=== PATIENT | male | born 1960 | race Hispanic/Latino ===

== ENCOUNTER 2016-09-24 08:27 | Inpatient (IN) | payer OTHER ==
[2016-09-24] MEDS ORDERED: ARTIFICIAL TEARS OPHTH OINT OU PRN (08:38)
[2016-09-24] MEDS ORDERED: VASELINE LIP THERAPY TP PRN (08:38)
[2016-09-24] MEDS ORDERED: AMIDATE IV ONE ×2 (08:49→09:11)
[2016-09-24] MEDS ORDERED: QUELICIN ONE (08:49)
[2016-09-24] MEDS ORDERED: ATIVAN ONE (08:54)
[2016-09-24] MEDS ORDERED: INTROPIN DRIP 800 MG/D5W 250 ML IV ONE (09:00)
[2016-09-24] MEDS ORDERED: NACL 0.9% 500 ML IV SCH (09:00)
[2016-09-24] MEDS ORDERED: ADRENALIN ONE (09:00)
[2016-09-24] MEDS ORDERED: CALCIUM CHLORIDE IV ONE (09:00)
[2016-09-24 09:02] LABS: Urine Drugs of Abuse Note Disclamer
[2016-09-24] MEDS ORDERED: CARDIZEM ONE (09:03)
[2016-09-24] MEDS ORDERED: NACL 0.9% 1000 ML 1,000 ML ONE (09:04)
[2016-09-24] MEDS ORDERED: ATIVAN IV ONE (09:07)
[2016-09-24] MEDS ORDERED: NACL 0.9% 1000 ML 1,000 ML IV ONE ×2 (09:09→10:16)
[2016-09-24] MEDS ORDERED: CARDIZEM IV ONE ×4 (09:11→10:02)
[2016-09-24 09:13] LABS: Hematocrit 54.6 % (35.5-45.6); Hemoglobin 17.4 gm/dl (11.8-15.2); Mean Corpuscular HGB Conc 32 % (32-34); Mean Corpuscular Hemoglobin 30 pg (28-32); Mean Corpuscular Volume 93 fl (84-94); Platelet Count 199 K/mm3 (140-440); Red Blood Count 5.85 M/mm3 (3.65-5.03); Red Cell Distribution Width 17.3 % (13.2-15.2); White Blood Count 14.4 K/mm3 (4.5-11.0)
[2016-09-24] MEDS: MIDAZOLAM 100 MG in NACL 0.9% 80 ML IV SCH (09:15)
--- NOTE | 2016-09-24 09:15 | Progress Note ---
Subjective Date of service: 09/24/16 Interval history: called to ER to emergently intubate pt. Prior unsuccessful attempts per ER doctor.pt well ventilated with O2 ambu bag and mask with O2 sats in mid 90's successful intubation with 7.0 OETT which was then changed to 8.0 OETT over tube changer due to rip in cuff.well ventilated throughout documented with blbs and co2 change Objective - Constitutional Vitals: Vital Signs - 12hr 09/24/16 09/24/16 09/24/16 08:27 08:28 08:30 Pulse Rate 166 H 125 H 83 Respiratory 12 9 L 12 Rate Blood Pressure 190/128 O2 Sat by Pulse 90 100 Oximetry 09/24/16 09/24/16 09/24/16 08:36 08:40 08:45 Pulse Rate 139 H 167 H 173 H Respiratory 31 H 17 19 Rate Blood Pressure 196/128 217/121 191/125 O2 Sat by Pulse 88 89 99 Oximetry 09/24/16 09/24/16 08:51 08:55 Pulse Rate 177 H 164 H Respiratory 27 H 22 Rate Blood Pressure 127/94 217/121 O2 Sat by Pulse 96 99 Oximetry
[2016-09-24] MEDS ORDERED: NACL ONE (09:18)
--- NOTE | 2016-09-24 09:22 | XRay Report ---
AP CHEST: HISTORY: Endotracheal tube placement. The endotracheal tube terminates 1.7 cm superior to the adelaida. There is poor pulmonary inflation bilaterally. Grossly there is no evidence for infiltrate, large pleural effusion or pneumothorax. Mild to moderate cardiomegaly is noted. IMPRESSION: Endotracheal tube as described. Cardiomegaly. Lungs grossly clear.
[2016-09-24 09:43] LABS: Alanine Aminotransferase 56 units/L (7-56); Albumin 4.3 g/dL (3.9-5); Albumin/Globulin Ratio 1.3 %; Alkaline Phosphatase 82 units/L (35-129); BUN/Creatinine Ratio 11.81; Blood Urea Nitrogen 13 mg/dL (9-20); Calcium 9.3 mg/dL (8.4-10.2); Chloride 99.7 mmol/L (98-107); Glucose 213 mg/dL (75-100); Sodium 146 mmol/L (137-145); Total Protein 7.6 g/dL (6.3-8.2)
[2016-09-24] MEDS ORDERED: CARDIZEM/D5W 100MG/100ML 100 MG/100 ML BAG IV ONE (09:48)
[2016-09-24 09:49] LABS: Anion Gap 41 mmol/L; Carbon Dioxide 9 mmol/L (22-30)
[2016-09-24 09:51] LABS: Bacteria,Urine 4+ /HPF (Negative); Bilirubin,Urine NEG (Negative); Blood,Urine SM (Negative); Ketones,Urine NEG (Negative); Leukocyte Esterase,Urine NEG (Negative); Nitrite,Urine NEG (Negative); Urobilinogen,Urine < 2.0 mg/dL (<2.0)
--- NOTE | 2016-09-24 09:52 | Cat Scan Report ---
CT HEAD WITHOUT CONTRAST: HISTORY: Seizure. Serial contiguous axial images were obtained through the cranium. Intravenous contrast material was not administered. The ventricles are normal in size and appearance. There is no mass effect or midline shift. No areas of abnormally increased or decreased attenuation are seen. No mass lesion is seen. The mastoid air cells and visualized portions of the sinuses are normal. IMPRESSION: No acute intracranial process appreciated. If further evaluation is needed, MRI brain with and without contrast is recommended.
[2016-09-24 09:58] LABS: Protein,Urine >500 mg/dL (Negative)
[2016-09-24] MEDS: CARDIZEM/D5W 100MG/100ML 100 MG/100 ML BAG IV SCH ×2 (10:03→18:26)
[2016-09-24] MEDS ORDERED: VANCOMYCIN/NS 1 GM/250 ML 1 GM/250 ML BAG IV ONE (10:16)
[2016-09-24] MEDS ORDERED: ZOSYN/NS 4.5GM/100ML 4.5 GM/100 ML VIAL IV ONE (10:16)
[2016-09-24 10:19] LABS: Blastocytes % (Manual) 0 %; Diff Status Complete; RBC Morphology Normal
--- NOTE | 2016-09-24 10:50 | Cat Scan Report ---
CT angiography of the chest with 3-D reconstructed images. History: Chest pain, shortness of breath, atrial fibrillation Findings: There is suboptimal contrast concentration in the pulmonary arterial tree. However, no filling defects or other signs of pulmonary embolus are seen. An endotracheal tube is noted. There is mild bibasilar atelectasis. Images which include a portion of the upper abdomen reveal hepatic steatosis and bilateral renal cysts, incompletely imaged. Impression: #1. No evidence of pulmonary embolus with above-described technical limitations. 2. Mild bibasilar atelectasis. 3. Hepatic steatosis. 4. Bilateral renal cysts.
[2016-09-24 11:12] LABS: ISTAT Base Excess -6; ISTAT HCO3 21.1; ISTAT PCO2 45.8 (35-45); ISTAT PH 7.271 (7.35-7.45); ISTAT PO2 102 (80-105); ISTAT SO2 97; ISTAT TCO2 22
--- NOTE | 2016-09-24 11:13 | History and Physical Report ---
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 Patient's reports that he was in the kitchen earlier this morning and suffered a fall/collapse that was heard in the other room. Patient's found him with generalized tonic-clonic seizures that lasted for approximately 1-2 minutes. Patient reportedly has had no history of seizures in the past including the time since his ICH in December of last year. The fall was unwitnessed and is uncertain of whether patient had head trauma. Patient had no prior reports of chest pain, headaches, visual disturbances or shortness of breath. As noted above, patient with history of intracranial hemorrhage in December 2015 previously on Xarelto. Patient with prolonged hospital course from acute hypoxic respiratory failure status post tracheostomy and admission to [facility] then to acute rehabilitation. Patient was now recovering at home and doing fairly well prior to the episode noted above. Upon arrival to the emergency room, patient was noted to have a GCS of 8. Patient developed a recent cardiopulmonary arrest in which she lost his pulse for approximately 10 seconds and received 1 dose of epinephrine. Patient reportedly also had a second seizure in the emergency room witnessed by the ER physician. Also, patient had a difficult intubation requiring anesthesiology assistance. Patient is currently intubated on Versed and diltiazem drip. Past History Past Medical History: atrial fib, DVT, pulmonary embolism, other (ICH) Past Surgical History: No surgical history Social history: no significant social history Family history: no significant family history Medications and Allergies Allergies Allergy/AdvReac Type Severity Reaction Status Date / Time No Known Allergies Allergy Unverified 09/24/16 08:36 Home Medications Medication Instructions Recorded Confirmed Last Taken Type Aspirin 81 mg PO DAILY 09/24/16 09/24/16 1 Day Ago History Diltiazem HCl [Diltiazem ER] 180 mg PO DAILY 09/24/16 09/24/16 1 Day Ago History Hydrochlorothiazide [HCTZ] 25 mg PO QDAY 09/24/16 09/24/16 1 Day Ago History Metoprolol Xl [Metoprolol 100 mg PO QDAY 09/24/16 09/24/16 1 Day Ago History SUCCINATE ER TAB] QUEtiapine [SEROquel] 25 mg PO DAILY 09/24/16 09/24/16 1 Day Ago History Tamsulosin [Flomax] 0.4 mg PO QDAY 09/24/16 09/24/16 1 Day Ago History Active Meds: Active Medications Hydrophilic Ointment (Vaseline Lip Therapy) 1 applic TP Q2HR PRN PRN Reason: Dry Lips Midazolam HCl 100 mg/ Sodium (Chloride) 100 mls @ 2 mls/hr IV TITR FROILAN; 2 MG/HR PRN Reason: Protocol Last Admin: 09/24/16 09:15 Dose: 2 mg/hr, 2 mls/hr Diltiazem HCl (Cardizem/D5w 100mg/100ml) 100 mg in 100 mls @ 5 mls/hr IV TITR FROILAN; 5 MG/HR PRN Reason: Protocol Last Admin: 09/24/16 10:03 Dose: 5 mg/hr, 5 mls/hr Sodium Chloride (Nacl 0.9% 1000 Ml) 1,000 mls @ 999 mls/hr IV BOLUS ONE Stop: 09/24/16 11:16 Vancomycin HCl (Vancomycin/Ns 1 Gm/250 Ml) 1 gm in 250 mls @ 167.007 mls/hr IV ONCE ONE PRN Reason: Protocol Stop: 09/24/16 11:45 Multi-Ingred Cream/Lotion/Oil/Oint (Artificial Tears Ophth Oint) 1 applic OU Q4HR PRN PRN Reason: Dry Eye(s) Sodium Chloride (Nacl 0.9% 500 Ml) 1 ml IV DIRECT FROILAN Review of Systems ROS unobtainable: due to endotracheal tube, due to mental status Exam - Constitutional Vitals: Temp Pulse Resp BP Pulse Ox 153 H 27 H 97/53 96 09/24/16 10:49 09/24/16 10:49 09/24/16 10:49 09/24/16 10:49 General appearance: Present: severe distress, well-nourished, other (orally intubated) - EENT Eyes: Present: PERRL ENT: hearing intact, clear oral mucosa - Neck Neck: Present: supple, normal ROM - Respiratory Respiratory effort: normal Respiratory: bilateral: diminished, rhonchi - Cardiovascular Heart Sounds: Present: S1 & S2. Absent: rub, click - Extremities Extremities: pulses symmetrical, No edema Peripheral Pulses: within normal limits - Abdominal General gastrointestinal: Present: soft, non-tender, non-distended, normal bowel sounds Male genitourinary: Present: normal - Integumentary Integumentary: Present: clear, warm, dry - Musculoskeletal Musculoskeletal: generalized weakness - Psychiatric Psychiatric: appropriate mood/affect, intact judgment & insight - Neurologic Neurologic: other (difficult to assess given sedation) Results - Labs CBC & Chem 7: 09/24/16 08:36 09/24/16 08:45 Labs: Laboratory Last Values WBC 14.4 K/mm3 (4.5-11.0) H 09/24/16 08:36 RBC 5.85 M/mm3 (3.65-5.03) H 09/24/16 08:36 Hgb 17.4 gm/dl (11.8-15.2) H 09/24/16 08:36 Hct 54.6 % (35.5-45.6) H 09/24/16 08:36 MCV 93 fl (84-94) 09/24/16 08:36 MCH 30 pg (28-32) 09/24/16 08:36 MCHC 32 % (32-34) 09/24/16 08:36 RDW 17.3 % (13.2-15.2) H 09/24/16 08:36 Plt Count 199 K/mm3 (140-440) 09/24/16 08:36 Lymph # Senior Systems Engineer 09/24/16 08:36 Add Manual Diff Complete 09/24/16 08:36 Total Counted 100 09/24/16 08:36 Seg Neuts % (Manual) 65.0 % (40.0-70.0) 09/24/16 08:36 Band Neutrophils % 3.0 % 09/24/16 08:36 Lymphocytes % (Manual) 20.0 % (13.4-35.0) 09/24/16 08:36 Reactive Lymphs % (Man) 0 % 09/24/16 08:36 Monocytes % (Manual) 8.0 % (0.0-7.3) H 09/24/16 08:36 Eosinophils % (Manual) 3.0 % (0.0-4.3) 09/24/16 08:36 Basophils % (Manual) 1.0 % (0.0-1.8) 09/24/16 08:36 Metamyelocytes % 0 % 09/24/16 08:36 Myelocytes % 0 % 09/24/16 08:36 Promyelocytes % 0 % 09/24/16 08:36 Blast Cells % 0 % 09/24/16 08:36 Nucleated RBC % Not Reportable 09/24/16 08:36 Seg Neutrophils # Man 9.4 K/mm3 (1.8-7.7) H 09/24/16 08:36 Band Neutrophils # 0.4 K/mm3 09/24/16 08:36 Lymphocytes # (Manual) 2.9 K/mm3 (1.2-5.4) 09/24/16 08:36 Abs React Lymphs (Man) 0.0 K/mm3 09/24/16 08:36 Monocytes # (Manual) 1.2 K/mm3 (0.0-0.8) H 09/24/16 08:36 Eosinophils # (Manual) 0.4 K/mm3 (0.0-0.4) 09/24/16 08:36 Basophils # (Manual) 0.1 K/mm3 (0.0-0.1) 09/24/16 08:36 Metamyelocytes # 0.0 K/mm3 09/24/16 08:36 Myelocytes # 0.0 K/mm3 09/24/16 08:36 Promyelocytes # 0.0 K/mm3 09/24/16 08:36 Blast Cells # 0.0 K/mm3 09/24/16 08:36 WBC Morphology Not Reportable 09/24/16 08:36 Hypersegmented Neuts Not Reportable 09/24/16 08:36 Hyposegmented Neuts Not Reportable 09/24/16 08:36 Hypogranular Neuts Not Reportable 09/24/16 08:36 Smudge Cells Not Reportable 09/24/16 08:36 Toxic Granulation Not Reportable 09/24/16 08:36 Toxic Vacuolation Not Reportable 09/24/16 08:36 Dohle Bodies Not Reportable 09/24/16 08:36 Pelger-Huet Anomaly Not Reportable 09/24/16 08:36 Ben Rods Not Reportable 09/24/16 08:36 Platelet Estimate Appears normal 09/24/16 08:36 Clumped Platelets Not Reportable 09/24/16 08:36 Plt Clumps, EDTA Not Reportable 09/24/16 08:36 Large Platelets Not Reportable 09/24/16 08:36 Giant Platelets Not Reportable 09/24/16 08:36 Platelet Satelliting Not Reportable 09/24/16 08:36 Plt Morphology Comment Not Reportable 09/24/16 08:36 RBC Morphology Normal 09/24/16 08:36 Dimorphic RBCs Not Reportable 09/24/16 08:36 Polychromasia Not Reportable 09/24/16 08:36 Hypochromasia Not Reportable 09/24/16 08:36 Poikilocytosis Not Reportable 09/24/16 08:36 Anisocytosis Not Reportable 09/24/16 08:36 Microcytosis Not Reportable 09/24/16 08:36 Macrocytosis Not Reportable 09/24/16 08:36 Spherocytes Not Reportable 09/24/16 08:36 Pappenheimer Bodies Not Reportable 09/24/16 08:36 Sickle Cells Not Reportable 09/24/16 08:36 Target Cells Not Reportable 09/24/16 08:36 Tear Drop Cells Not Reportable 09/24/16 08:36 Ovalocytes Not Reportable 09/24/16 08:36 Helmet Cells Not Reportable 09/24/16 08:36 [place] Bodies Not Reportable 09/24/16 08:36 [place] Rings Not Reportable 09/24/16 08:36 [place] Cells Not Reportable 09/24/16 08:36 Bite Cells Not Reportable 09/24/16 08:36 Crenated Cell Not Reportable 09/24/16 08:36 Elliptocytes Not Reportable 09/24/16 08:36 Acanthocytes (Spur) Not Reportable 09/24/16 08:36 Rouleaux Not Reportable 09/24/16 08:36 Hemoglobin C Crystals Not Reportable 09/24/16 08:36 Schistocytes Not Reportable 09/24/16 08:36 Malaria parasites Not Reportable 09/24/16 08:36 Sivakumar Bodies Not Reportable 09/24/16 08:36 Hem Pathologist Commnt No 09/24/16 08:36 Sodium 146 mmol/L (137-145) H 09/24/16 08:45 Potassium 4.0 mmol/L (3.6-5.0) 09/24/16 08:45 Chloride 99.7 mmol/L (98-107) 09/24/16 08:45 Carbon Dioxide 9 mmol/L (22-30) L* 09/24/16 08:45 Anion Gap 41 mmol/L 09/24/16 08:45 BUN 13 mg/dL (9-20) 09/24/16 08:45 Creatinine 1.1 mg/dL (0.8-1.5) 09/24/16 08:45 Estimated GFR > 60 ml/min 09/24/16 08:45 BUN/Creatinine Ratio 11.81 % 09/24/16 08:45 Glucose 213 mg/dL (75-100) H 09/24/16 08:45 Lactic Acid 20.60 mmol/L (0.7-2.0) H* 09/24/16 08:32 Calcium 9.3 mg/dL (8.4-10.2) 09/24/16 08:45 Magnesium 2.20 mg/dL (1.7-2.3) 09/24/16 08:45 Total Bilirubin 0.40 mg/dL (0.1-1.2) 09/24/16 08:45 AST 49 units/L (5-40) H 09/24/16 08:45 ALT 56 units/L (7-56) 09/24/16 08:45 Alkaline Phosphatase 82 units/L (35-129) 09/24/16 08:45 Troponin T < 0.010 ng/mL (0.00-0.029) 09/24/16 08:37 Total Protein 7.6 g/dL (6.3-8.2) 09/24/16 08:45 Albumin 4.3 g/dL (3.9-5) 09/24/16 08:45 Albumin/Globulin Ratio 1.3 % 09/24/16 08:45 TSH 5.740 mlU/mL (0.270-4.200) H 09/24/16 08:36 Urine Color Yellow (Yellow) 09/24/16 09:01 Urine Turbidity Cloudy (Clear) 09/24/16 09:01 Urine pH 5.0 (5.0-7.0) 09/24/16 09:01 Ur Specific [place] 1.013 (1.003-1.030) 09/24/16 09: Urine Protein >500 mg/dL (Negative) 09/24/16 09:01 Urine Glucose (UA) 50 mg/dL (Negative) 09/24/16 09:01 Urine Ketones Neg mg/dL (Negative) 09/24/16 09:01 Urine Blood Sm (Negative) 09/24/16 09:01 Urine Nitrite Neg (Negative) 09/24/16 09:01 Urine Bilirubin Neg (Negative) 09/24/16 09: Urine Urobilinogen < 2.0 mg/dL (<2.0) 09/24/16 09:01 Ur Leukocyte Esterase Neg (Negative) 09/24/16 09:01 Urine WBC (Auto) 13.0 /HPF (0.0-6.0) H 09/24/16 09: Urine RBC (Auto) 10.0 /HPF (0.0-6.0) 09/24/16 09:01 Urine Bacteria (Auto) 4+ /HPF (Negative) 09/24/16 09: Blood Type A NEGATIVE 09/24/16 08:43 Antibody Screen TNR 09/24/16 08:43 AMOR Antibody Screen Negative 09/24/16 08:43 Assessment and Plan Assessment and plan: Sepsis. Patient meets criteria given the tachycardia, tachypnea, lactic acidosis and leukocytosis. Patient will be placed on the sepsis pathway started on IV antibiotics. Continue to follow blood, sputum and urine cultures. Continue IV fluid hydration. Trend lactic acid levels. Acute hypoxic respiratory failure. Patient currently intubated on mechanical ventilation. Pulmonary consultation. Toxic metabolic encephalopathy. Etiology may be secondary to #1. Other possible etiology may be related to seizures/postictal state. CT scan of the head is negative. Patient will need an MRI/MRA when more stable. Neurology consultation. Atrial fibrillation with RVR. Continue diltiazem drip. Cardiology consultation. History DVT/PE. Hemoptysis. Patient with significant blood in the ET tube. This may be related to trauma from difficult intubation. Follow-up CT of the chest. Monitor H&H. Seizure disorder. We will start Keppra. Ativan for breakthrough seizures. Seizure precautions. Neurology consultation. Lactic acidosis.
[2016-09-24] MEDS ORDERED: DULCOLAX PR PRN (11:27)
[2016-09-24] MEDS ORDERED: ALUM-MAG HYDROX-SIMETH 200-200-20MG/5ML PO PRN (11:27)
--- NOTE | 2016-09-24 11:47 | Emergency Department Report ---
ED Altered Mental Status HPI - General Chief Complaint: Seizure Stated Complaint: SEIZURE Time Seen by Provider: 09/24/16 09:21 Source: EMS Mode of arrival: Stretcher Limitations: Altered Mental Status - History of Present Illness MD Complaint: altered mental status, confusion, decreased responsiveness -: Sudden Severity: severe Consistency of Symptoms: constant Context: unknown Associated Symptoms: denies: chest pain, cough, diaphoresis, fever/chills, headaches, loss of appetite, malaise, nausea/vomiting, rash, seizure, shortness of breath, syncope, weakness, foul smelling urine Treatments Prior to Arrival: glucose, IV fluid - Related Data Home Medications Medication Instructions Recorded Confirmed Last Taken Aspirin 81 mg PO DAILY 09/24/16 09/24/16 1 Day Ago Diltiazem HCl [Diltiazem ER] 180 mg PO DAILY 09/24/16 09/24/16 1 Day Ago Hydrochlorothiazide [HCTZ] 25 mg PO QDAY 09/24/16 09/24/16 1 Day Ago Metoprolol Xl [Metoprolol 100 mg PO QDAY 09/24/16 09/24/16 1 Day Ago SUCCINATE ER TAB] QUEtiapine [SEROquel] 25 mg PO DAILY 09/24/16 09/24/16 1 Day Ago Tamsulosin [Flomax] 0.4 mg PO QDAY 09/24/16 09/24/16 1 Day Ago Allergies Allergy/AdvReac Type Severity Reaction Status Date / Time No Known Allergies Allergy Unverified 09/24/16 08:36 ED Review of Systems ROS: Stated complaint: SEIZURE Other details as noted in HPI Comment: Unobtainable due to pts medical conditions ED Past Medical Hx - Past Medical History Hx Hypertension: Yes Additional medical history: DVT, brain hemorrhage, AF - Social History Smoking Status: Unknown if ever smoked Substance Use Type: None - Medications Home Medications: Home Medications Medication Instructions Recorded Confirmed Last Taken Type Aspirin 81 mg PO DAILY 09/24/16 09/24/16 1 Day Ago History Diltiazem HCl [Diltiazem ER] 180 mg PO DAILY 09/24/16 09/24/16 1 Day Ago History Hydrochlorothiazide [HCTZ] 25 mg PO QDAY 09/24/16 09/24/16 1 Day Ago History Metoprolol Xl [Metoprolol 100 mg PO QDAY 09/24/16 09/24/16 1 Day Ago History SUCCINATE ER TAB] QUEtiapine [SEROquel] 25 mg PO DAILY 09/24/16 09/24/16 1 Day Ago History Tamsulosin [Flomax] 0.4 mg PO QDAY 09/24/16 09/24/16 1 Day Ago History ED Physical Exam - General Limitations: Altered Mental Status General appearance: lethargic, obtunded - Head Head exam: Present: atraumatic, normocephalic - Eye Eye exam: Present: normal appearance, PERRL - ENT ENT exam: Present: normal exam - Neck Neck exam: Present: normal inspection - Respiratory Respiratory exam: Present: normal lung sounds bilaterally. Absent: respiratory distress, wheezes, rales, rhonchi, chest wall tenderness, accessory muscle use, decreased breath sounds - Cardiovascular Cardiovascular Exam: Present: tachycardia, irregular rhythm - GI/Abdominal GI/Abdominal exam: Present: soft. Absent: distended, tenderness, guarding, rebound - exam: Present: normal inspection - Extremities Exam Extremities exam: Present: normal inspection, full ROM. Absent: tenderness ED Course Vital Signs 09/24/16 09/24/16 09/24/16 08:27 08:28 08:30 Pulse Rate 166 H 125 H 83 Respiratory 12 9 L 12 Rate Blood Pressure 190/128 O2 Sat by Pulse 90 100 Oximetry 09/24/16 09/24/16 09/24/16 08:36 08:40 08:45 Pulse Rate 139 H 167 H 173 H Respiratory 31 H 17 19 Rate Blood Pressure 196/128 217/121 191/125 O2 Sat by Pulse 88 89 99 Oximetry 09/24/16 09/24/16 09/24/16 08:51 08:55 09:01 Pulse Rate 177 H 164 H 184 H Respiratory 27 H 22 25 H Rate Blood Pressure 127/94 217/121 156/87 O2 Sat by Pulse 96 99 97 Oximetry 09/24/16 09/24/16 09/24/16 09:05 09:09 09:11 Pulse Rate 147 H 154 H 152 H Respiratory 26 H 28 H Rate Blood Pressure 120/71 122/59 111/72 O2 Sat by Pulse 98 97 98 Oximetry 09/24/16 09/24/16 09/24/16 09:15 09:33 09:35 Pulse Rate 152 H 159 H 172 H Respiratory 26 H 27 H 30 H Rate Blood Pressure 111/72 137/87 137/87 O2 Sat by Pulse 99 Oximetry 09/24/16 09/24/16 09/24/16 09:41 09:45 09:51 Pulse Rate 166 H 139 H 143 H Respiratory 28 H 29 H 28 H Rate Blood Pressure 137/87 123/90 123/90 O2 Sat by Pulse Oximetry 09/24/16 09/24/16 09:55 10:49 Pulse Rate 166 H 153 H Respiratory 29 H 27 H Rate Blood Pressure 123/90 97/53 O2 Sat by Pulse 95 96 Oximetry - Lab Data Result diagrams: 09/24/16 08:36 09/24/16 08:45 Lab Results 09/24/16 09/24/16 09/24/16 Range/Units 08:32 08:36 08:36 WBC 14.4 H (4.5-11.0) K/mm3 RBC 5.85 H (3.65-5.03) M/mm3 Hgb 17.4 H (11.8-15.2) gm/dl Hct 54.6 H (35.5-45.6) % MCV 93 (84-94) fl MCH 30 (28-32) pg MCHC 32 (32-34) % RDW 17.3 H (13.2-15.2) % Plt Count 199 (140-440) K/mm3 Lymph # Assistant Auditor Add Manual Diff Complete Total Counted 100 Seg Neuts % (Manual) 65.0 (40.0-70.0) % Band Neutrophils % 3.0 % Lymphocytes % (Manual) 20.0 (13.4-35.0) % Reactive Lymphs % (Man) 0 % Monocytes % (Manual) 8.0 H (0.0-7.3) % Eosinophils % (Manual) 3.0 (0.0-4.3) % Basophils % (Manual) 1.0 (0.0-1.8) % Metamyelocytes % 0 % Myelocytes % 0 % Promyelocytes % 0 % Blast Cells % 0 % Nucleated RBC % Not Reportable Seg Neutrophils # Man 9.4 H (1.8-7.7) K/mm3 Band Neutrophils # 0.4 K/mm3 Lymphocytes # (Manual) 2.9 (1.2-5.4) K/mm3 Abs React Lymphs (Man) 0.0 K/mm3 Monocytes # (Manual) 1.2 H (0.0-0.8) K/mm3 Eosinophils # (Manual) 0.4 (0.0-0.4) K/mm3 Basophils # (Manual) 0.1 (0.0-0.1) K/mm3 Metamyelocytes # 0.0 K/mm3 Myelocytes # 0.0 K/mm3 Promyelocytes # 0.0 K/mm3 Blast Cells # 0.0 K/mm3 WBC Morphology Not Reportable Hypersegmented Neuts Not Reportable Hyposegmented Neuts Not Reportable Hypogranular Neuts Not Reportable Smudge Cells Not Reportable Toxic Granulation Not Reportable Toxic Vacuolation Not Reportable Dohle Bodies Not Reportable Pelger-Huet Anomaly Not Reportable Ben Rods Not Reportable Platelet Estimate Appears normal Clumped Platelets Not Reportable Plt Clumps, EDTA Not Reportable Large Platelets Not Reportable Giant Platelets Not Reportable Platelet Satelliting Not Reportable Plt Morphology Comment Not Reportable RBC Morphology Normal Dimorphic RBCs Not Reportable Polychromasia Not Reportable Hypochromasia Not Reportable Poikilocytosis Not Reportable Anisocytosis Not Reportable Microcytosis Not Reportable Macrocytosis Not Reportable Spherocytes Not Reportable Pappenheimer Bodies Not Reportable Sickle Cells Not Reportable Target Cells Not Reportable Tear Drop Cells Not Reportable Ovalocytes Not Reportable Helmet Cells Not Reportable [place]rera-Ladue Bodies Not Reportable [place] Rings Not Reportable [place] Cells Not Reportable Bite Cells Not Reportable Crenated Cell Not Reportable Elliptocytes Not Reportable Acanthocytes (Spur) Not Reportable Rouleaux Not Reportable Hemoglobin C Crystals Not Reportable Schistocytes Not Reportable Malaria parasites Not Reportable Sivakumar Bodies Not Reportable Hem Pathologist Commnt No POC ABG pH (7.35-7.45) POC ABG pCO2 (35-45) POC ABG pO2 (80-105) POC ABG HCO3 POC ABG Total CO2 POC ABG O2 Sat POC ABG Base Excess FiO2 % Sodium (137-145) mmol/L Potassium (3.6-5.0) mmol/L Chloride (98-107) mmol/L Carbon Dioxide (22-30) mmol/L Anion Gap mmol/L BUN (9-20) mg/dL Creatinine (0.8-1.5) mg/dL Estimated GFR ml/min BUN/Creatinine Ratio % Glucose (75-100) mg/dL Lactic Acid 20.60 H* (0.7-2.0) mmol/L Calcium (8.4-10.2) mg/dL Magnesium (1.7-2.3) mg/dL Total Bilirubin (0.1-1.2) mg/dL AST (5-40) units/L ALT (7-56) units/L Alkaline Phosphatase (35-129) units/L Troponin T (0.00-0.029) ng/mL Total Protein (6.3-8.2) g/dL Albumin (3.9-5) g/dL Albumin/Globulin Ratio % TSH 5.740 H (0.270-4.200) mlU/mL Urine Color (Yellow) Urine Turbidity (Clear) Urine pH (5.0-7.0) Ur Specific [place] (1.003-1.030) Urine Protein (Negative) mg/dL Urine Glucose (UA) (Negative) mg/dL Urine Ketones (Negative) mg/dL Urine Blood (Negative) Urine Nitrite (Negative) Urine Bilirubin (Negative) Urine Urobilinogen (<2.0) mg/dL Ur Leukocyte Esterase (Negative) Urine WBC (Auto) (0.0-6.0) /HPF Urine RBC (Auto) (0.0-6.0) /HPF Urine Bacteria (Auto) (Negative) /HPF Blood Type Antibody Screen AMOR Antibody Screen 09/24/16 09/24/16 09/24/16 Range/Units 08:37 08:43 08:45 WBC (4.5-11.0) K/mm3 RBC (3.65-5.03) M/mm3 Hgb (11.8-15.2) gm/dl Hct (35.5-45.6) % MCV (84-94) fl MCH (28-32) pg MCHC (32-34) % RDW (13.2-15.2) % Plt Count (140-440) K/mm3 Lymph # Add Manual Diff Total Counted Seg Neuts % (Manual) (40.0-70.0) % Band Neutrophils % % Lymphocytes % (Manual) (13.4-35.0) % Reactive Lymphs % (Man) % Monocytes % (Manual) (0.0-7.3) % Eosinophils % (Manual) (0.0-4.3) % Basophils % (Manual) (0.0-1.8) % Metamyelocytes % % Myelocytes % % Promyelocytes % % Blast Cells % % Nucleated RBC % Seg Neutrophils # Man (1.8-7.7) K/mm3 Band Neutrophils # K/mm3 Lymphocytes # (Manual) (1.2-5.4) K/mm3 Abs React Lymphs (Man) K/mm3 Monocytes # (Manual) (0.0-0.8) K/mm3 Eosinophils # (Manual) (0.0-0.4) K/mm3 Basophils # (Manual) (0.0-0.1) K/mm3 Metamyelocytes # K/mm3 Myelocytes # K/mm3 Promyelocytes # K/mm3 Blast Cells # K/mm3 WBC Morphology Hypersegmented Neuts Hyposegmented Neuts Hypogranular Neuts Smudge Cells Toxic Granulation Toxic Vacuolation Dohle Bodies Pelger-Huet Anomaly Ben Rods Platelet Estimate Clumped Platelets Plt Clumps, EDTA Large Platelets Giant Platelets Platelet Satelliting Plt Morphology Comment RBC Morphology Dimorphic RBCs Polychromasia Hypochromasia Poikilocytosis Anisocytosis Microcytosis Macrocytosis Spherocytes Pappenheimer Bodies Sickle Cells Target Cells Tear Drop Cells Ovalocytes Helmet Cells Cabrera-Ladue Bodies [place] Rings [place] Cells Bite Cells Crenated Cell Elliptocytes Acanthocytes (Spur) Rouleaux Hemoglobin C Crystals Schistocytes Malaria parasites Sivakumar Bodies Hem Pathologist Commnt POC ABG pH (7.35-7.45) POC ABG pCO2 (35-45) POC ABG pO2 (80-105) POC ABG HCO3 POC ABG Total CO2 POC ABG O2 Sat POC ABG Base Excess FiO2 % Sodium 146 H (137-145) mmol/L Potassium 4.0 (3.6-5.0) mmol/L Chloride 99.7 (98-107) mmol/L Carbon Dioxide 9 L* (22-30) mmol/L Anion Gap 41 mmol/L BUN 13 (9-20) mg/dL Creatinine 1.1 (0.8-1.5) mg/dL Estimated GFR > 60 ml/min BUN/Creatinine Ratio 11.81 % Glucose 213 H (75-100) mg/dL Lactic Acid (0.7-2.0) mmol/L Calcium 9.3 (8.4-10.2) mg/dL Magnesium 2.20 (1.7-2.3) mg/dL Total Bilirubin 0.40 (0.1-1.2) mg/dL AST 49 H (5-40) units/L ALT 56 (7-56) units/L Alkaline Phosphatase 82 (35-129) units/L Troponin T < 0.010 (0.00-0.029) ng/mL Total Protein 7.6 (6.3-8.2) g/dL Albumin 4.3 (3.9-5) g/dL Albumin/Globulin Ratio 1.3 % TSH (0.270-4.200) mlU/mL Urine Color (Yellow) Urine Turbidity (Clear) Urine pH (5.0-7.0) Ur Specific [place] (1.003-1.030) Urine Protein (Negative) mg/dL Urine Glucose (UA) (Negative) mg/dL Urine Ketones (Negative) mg/dL Urine Blood (Negative) Urine Nitrite (Negative) Urine Bilirubin (Negative) Urine Urobilinogen (<2.0) mg/dL Ur Leukocyte Esterase (Negative) Urine WBC (Auto) (0.0-6.0) /HPF Urine RBC (Auto) (0.0-6.0) /HPF Urine Bacteria (Auto) (Negative) /HPF Blood Type A NEGATIVE Antibody Screen TNR AMOR Antibody Screen Negative 09/24/16 09/24/16 Range/Units 09:01 11:02 WBC (4.5-11.0) K/mm3 RBC (3.65-5.03) M/mm3 Hgb (11.8-15.2) gm/dl Hct (35.5-45.6) % MCV (84-94) fl MCH (28-32) pg MCHC (32-34) % RDW (13.2-15.2) % Plt Count (140-440) K/mm3 Lymph # Add Manual Diff Total Counted Seg Neuts % (Manual) (40.0-70.0) % Band Neutrophils % % Lymphocytes % (Manual) (13.4-35.0) % Reactive Lymphs % (Man) % Monocytes % (Manual) (0.0-7.3) % Eosinophils % (Manual) (0.0-4.3) % Basophils % (Manual) (0.0-1.8) % Metamyelocytes % % Myelocytes % % Promyelocytes % % Blast Cells % % Nucleated RBC % Seg Neutrophils # Man (1.8-7.7) K/mm3 Band Neutrophils # K/mm3 Lymphocytes # (Manual) (1.2-5.4) K/mm3 Abs React Lymphs (Man) K/mm3 Monocytes # (Manual) (0.0-0.8) K/mm3 Eosinophils # (Manual) (0.0-0.4) K/mm3 Basophils # (Manual) (0.0-0.1) K/mm3 Metamyelocytes # K/mm3 Myelocytes # K/mm3 Promyelocytes # K/mm3 Blast Cells # K/mm3 WBC Morphology Hypersegmented Neuts Hyposegmented Neuts Hypogranular Neuts Smudge Cells Toxic Granulation Toxic Vacuolation Dohle Bodies Pelger-Huet Anomaly Ben Rods Platelet Estimate Clumped Platelets Plt Clumps, EDTA Large Platelets Giant Platelets Platelet Satelliting Plt Morphology Comment RBC Morphology Dimorphic RBCs Polychromasia Hypochromasia Poikilocytosis Anisocytosis Microcytosis Macrocytosis Spherocytes Pappenheimer Bodies Sickle Cells Target Cells Tear Drop Cells Ovalocytes Helmet Cells Cabrera-Ladue Bodies [place] Rings [place] Cells Bite Cells Crenated Cell Elliptocytes Acanthocytes (Spur) Rouleaux Hemoglobin C Crystals Schistocytes Malaria parasites Sivakumar Bodies Hem Pathologist Commnt POC ABG pH 7.271 L (7.35-7.45) POC ABG pCO2 45.8 H (35-45) POC ABG pO2 102 (80-105) POC ABG HCO3 21.1 POC ABG Total CO2 22 POC ABG O2 Sat 97 POC ABG Base Excess -6 FiO2 100 % Sodium (137-145) mmol/L Potassium (3.6-5.0) mmol/L Chloride (98-107) mmol/L Carbon Dioxide (22-30) mmol/L Anion Gap mmol/L BUN (9-20) mg/dL Creatinine (0.8-1.5) mg/dL Estimated GFR ml/min BUN/Creatinine Ratio % Glucose (75-100) mg/dL Lactic Acid (0.7-2.0) mmol/L Calcium (8.4-10.2) mg/dL Magnesium (1.7-2.3) mg/dL Total Bilirubin (0.1-1.2) mg/dL AST (5-40) units/L ALT (7-56) units/L Alkaline Phosphatase (35-129) units/L Troponin T (0.00-0.029) ng/mL Total Protein (6.3-8.2) g/dL Albumin (3.9-5) g/dL Albumin/Globulin Ratio % TSH (0.270-4.200) mlU/mL Urine Color Yellow (Yellow) Urine Turbidity Cloudy (Clear) Urine pH 5.0 (5.0-7.0) Ur Specific [place] 1.013 (1.003-1.030) Urine Protein >500 (Negative) mg/dL Urine Glucose (UA) 50 (Negative) mg/dL Urine Ketones Neg (Negative) mg/dL Urine Blood Sm (Negative) Urine Nitrite Neg (Negative) Urine Bilirubin Neg (Negative) Urine Urobilinogen < 2.0 (<2.0) mg/dL Ur Leukocyte Esterase Neg (Negative) Urine WBC (Auto) 13.0 H (0.0-6.0) /HPF Urine RBC (Auto) 10.0 (0.0-6.0) /HPF Urine Bacteria (Auto) 4+ (Negative) /HPF Blood Type Antibody Screen AMOR Antibody Screen - EKG Data -: EKG Interpreted by Me Interpretation: other (a-fib rvr) - Radiology Data Radiology results: report reviewed, image reviewed - Medical Decision Making patient with AMS / unresponsive on arrival, intubated by anesthesia after i failed to intubate twice, good sats and oxygenation after ETT, a-fib treated with dilt, Head CT negative , no evidence of ICH/ chest CT no PE, remains intubated here in the ER, talk to hospitalist and agree wioth plan for admission. elevated lactic acid and low HCO3, started abx in case of sepsis. Critical care time in (mins) excluding proc time.: 65 Critical care attestation.: If time is entered above; I have spent that time in minutes in the direct care of this critically ill patient, excluding procedure time. ED Disposition Clinical Impression: Altered mental state Disposition: OP ADMITTED IP TO THIS HOSP Is pt being admited?: Yes Does the pt Need Aspirin: No Condition: Critical Referrals: PRIMARY CARE, [Primary Care Provider] - 3-5 Days Time of Disposition: 11:47
[2016-09-24] MEDS: ZOSYN/NS 4.5GM/100ML 4.5 GM/100 ML VIAL IV SCH ×3 (12:03→23:40)
--- NOTE | 2016-09-24 12:07 | Admit Criteria Form ---
Admission Criteria Documentation: SEVERE SEPSIS Clinical Indications for Admission to Inpatient Care (Place 'X' for any and all applicable criteria): Hospital admission is needed for appropriate care of the patient because of ANY ONE of the following: [X]I. Hemodynamic instability indicated by ANY ONE of the following(1)(2)(3)( 4)(5): [X]a. Vital sign abnormality not readily corrected by appropriate treatment within 12 to 24 hours indicated by ANY ONE of the following: [X]i) Tachycardia that persists despite appropriate treatment []ii) Hypotension that persists despite appropriate treatment []iii) Orthostatic vital sign changes that persist despite appropriate treatment [X]b. Vital sign abnormality that is severe indicated by ANY ONE of the following: [X]i.Inadequate perfusion indicated by ANY ONE of the following : [X]1) Lactic acidosis (greater than 2 mmol/L) []2) New abnormal capillary refill (greater than 3 seconds) []3) Reduced urine output [X]4) New altered mental status []5) Myocardial Ischemia []ii. Mean arterial pressure [A] less than 60 mm Hg []iii. Mean arterial pressure[A] less than 70 mm Hg after 30 minutes of appropriate treatment (eg, fluid resuscitation) []iv. Sustained heart rate greater than 120 beats per minute in adult []v. IV inotropic or vasopressor medication required to maintain adequate blood pressure or perfusion [X]II. Systemic or infectious condition causing severe symptoms or findings not responsive to emergency or observation care treatment (as appropriate) indicated by ANY ONE of the following: []a. Cardiac arrhythmias of immediate concern(1)(2)(3) []b. Severe endocrine disorder (eg, thyrotoxicosis, adrenal insufficiency)(4)(5) [X]c. Seizures (eg, new or recurrent)(6) [X]d. New-onset end organ failure or dysfunction as indicated by ANY ONE of the following: [X]i. Acute unexplained hypoxemia (eg, not from lung infection or chronic disease)(7)(8)(9) []ii. Acute renal failure as indicated by new onset of ANY ONE of the following(10)(11)(12)(13)(14): []1) 3-fold rise in serum creatinine from baseline []2) Serum creatinine greater than 4 mg/dL (354 micromoles/L) with acute rise greater than 0.5 mg/dL (44.2 micromoles/L) []3) Reduction of more than 75% in estimated glomerular filtration rate from baseline. []4) Estimated glomerular filtration rate less than 35 mL/min/1.73m2 ( 0.59 mL/sec/1.73m2) in child younger than 18 years. []5) Cessation of urine output indicated by ALL of the following: []A. Adequate volume status []B. Inadequate urine output as indicated by ANY ONE of the following: []a. Urine output less than 0.3 mL/kg/hr for 24 hours []b. Anuria (urine output less than 0.1 mL/kg/hr) for 12 hours []iii. Acute mental status changes(15) []iv. Acute hepatic failure (eg, plasma bilirubin greater than 4 mg/ dL (68 micromoles/L), new INR greater than 2.0)(16)(17) []e. Unmanageable nausea and vomiting(18) []f. New-onset or uncontrolled central diabetes insipidus(19)(20) []g. Clinically significant dehydration(18)(21) []h. Hypoglycemia(22) []i. Acidosis (pH less than 7.35) or alkalosis (pH greater than 7.45)( 22)(23) []j. Toxic drug level that indicates need for specific monitoring or treatment(24)(25) []k. Severe electrolyte abnormalities indicated by ALL of the following( 1)(2)(3): []i. Electrolytes and associated findings are not as expected for patient baseline or acceptable treatment effects. []ii. Severe abnormalities indicated by ANY ONE of the following: []1) Sodium less than 130 mEq/L (mmol/L) (new) []2) Sodium less than 135 mEq/L (mmol/L) with ANY ONE of the following: []A. Uncorrectable (to near normal or chronic baseline) after trial of outpatient and emergency treatment []B. Altered mental status []C. Seizures []D. Severe medical etiology requiring inpatient management (eg , heart failure, hypovolemia) []3) Sodium greater than 155 mEq/L (mmol/L) []4) Sodium greater than 150 mEq/L (mmol/L) with ANY ONE of the following: []A. Uncorrectable (to near normal or chronic baseline) with outpatient and emergency treatment []B. Altered mental status []C. Seizures []D. Severe medical etiology (eg, hypovolemia, diabetes insipidus) []5) Potassium less than 2.5 mEq/L (mmol/L) despite outpatient and emergency treatment []6) Potassium less than 3 mEq/L (mmol/L) with ANY ONE of the following : []A. Weakness []B. Cardiac abnormality (eg, arrhythmia, conduction disturbance ) []C. Cardiac ischemia []D. Ileus []E. Ongoing medical cause requiring inpatient management (eg, acute renal wasting or SIADH) []F. Other severe symptoms []7) Potassium greater than 6.5 mEq/L (mmol/L) []8) Potassium greater than 5 mEq/L (mmol/L) with ANY ONE of the following: []A. Uncorrectable (to near normal or chronic baseline) with outpatient and emergency treatment []B. Severe ECG findings[A] []C. Acute worsening of renal failure (creatinine greater than 2.5 mg/dL (221 micromoles/L) or significant elevation for age and size) []D. Severe weakness []E. Severe medical etiology (eg, hemolysis, infection, drug overdose) []9) Calcium less than 7 mg/dL (1.75 mmol/L) despite outpatient and emergency treatment(5) []10) Calcium less than 8 mg/dL (2 mmol/L) with significant symptoms or findings (eg, altered mental status, muscle spasms, seizures, breathing difficulty, cardiac abnormality (eg, arrhythmia or conduction disturbance))(5) []11) Calcium greater than 14 mg/dL (3.5 mmol/L)(5) []12) Calcium greater than 12 mg/dL (3 mmol/L) with ANY ONE of the following(5): []A. Uncorrectable (to near normal or chronic baseline) with outpatient and emergency treatment []B. Significant dehydration or hypovolemia as indicated by ALL of the following(3)(6)(7): []a. Not resolved with initial treatments []b. Clinically significant dehydration as indicated by ANY ONE of the following: [](1) Vomiting refractory to outpatient treatment (ie, precluding oral rehydration) [](2) Inability to drink [](3) Hypernatremia or other electrolyte abnormality unable to be corrected with outpatient and emergency treatment [](4) Failure to remain hydrated with outpatient therapy [](5) Reduced urine output [](6) Hypotension [](7) Serious cause for dehydration requiring acute hospitalization ( eg, bowel obstruction, increased intracranial pressure, infectious cause) [](8) Child with ANY ONE of the following(8): [](i) Severe abdominal tenderness [](ii) Adequate care not available at home [](iii) Severe dehydration (greater than 9% loss of body weight) []C. Significant symptoms or findings (eg, altered mental status , cardiac abnormality (eg, arrhythmia, conduction disturbance), malignant etiology requiring inpatient treatment) []13) Phosphorus less than 1 mg/dL (0.32 mmol/L) []14) Phosphorus less than 1.5 mg/dL (0.48 mmol/L) with ANY ONE of the following: []A. Patient unresponsive to outpatient and emergency treatment []B. Significant symptoms or findings (eg, weakness, altered mental status, breathing difficulty, seizures, rhabdomyolysis) []15) Phosphorus greater than 10 mg/dL (3.2 mmol/L) []16) Phosphorus greater than 4.5 mg/dL (1.45 mmol/L) (new) with ANY ONE of the following: []A. Severe medical etiology (eg, crush injury, acute renal failure) []B. Associated hypocalcemia with significant findings (eg, neurologic symptoms, altered mental status, muscle spasms, seizures, breathing difficulty, cardiac abnormality (eg, arrhythmia, conduction disturbance)) []16) Magnesium less than 1 mg/dL (0.41 mmol/L) []17) Magnesium less than 1.5 mg/dL (0.62 mmol/L) with ANY ONE of the following: []A. Patient unresponsive to outpatient and emergency treatment []B. Associated hypocalcemia with significant findings (eg, altered mental status, muscle spasms, seizures, breathing difficulty, cardiac abnormality (eg, arrhythmia, conduction disturbance)) []C. Associated hypokalemia (potassium less than 3 mEq/L (mmol/L )) with risk of arrhythmia []18) Magnesium greater than 4 mEq/L (2 mmol/L) []19) Magnesium greater than 2.5 mEq/L (1.25 mmol/L) with significant symptoms or findings (eg, weakness, altered mental status, cardiac abnormality (eg, arrhythmia, conduction disturbance), breathing difficulty, severe medical etiology (eg, renal failure, hypovolemia)) []20) Uric acid greater than 20 mg/dL (1190 micromoles/L)(9) []21) Uric acid greater than 8 mg/dL (476 micromoles/L) with significant symptoms or findings of tumor lysis syndrome (eg, creatinine greater than 1.5 times upper limit of normal, cardiac abnormality (eg , arrhythmia, conduction disturbance), seizure)(9) []III. High fever or other high-risk infection situation as indicated by ANY ONE of the following(26)(27)(28): []a. Outpatient and observation care antimicrobial treatment unavailable, not effective, or not appropriate []b. Documented bacteremia []c. Temperature greater than 104.9 degrees F (40.5 degrees C) (oral) []d. Temperature greater than 103.1 degrees F (39.5 degrees C) (oral) or less than 96.8 degrees F (36 degrees C) (rectal) that does not respond to emergency treatment and observation care []IV. High-risk febrile neutropenia[A] as indicated by ANY ONE of the following(29)(30)(31)(32): []a. Profound neutropenia[B] anticipated to extend for more than 7 days []b. Hemodynamic instability []c. Hypoxemia []d. Tachypnea []e. Altered mental status []f. New-onset abdominal pain []g. New-onset vomiting or diarrhea []h. Oral or gastrointestinal mucositis that interferes with swallowing or causes severe diarrhea []i. Focal infection (eg, cellulitis, pneumonia, central line or catheter infection, perirectal abscess) []j. Renal insufficiency (eg, GFR of less than 30 mL/min/1.73m2 (0.5 mL/sec /1.73m2)). []k. Severe liver dysfunction (transaminase levels greater than 5 times normal) []l. Platelet count less than 50,000/mm3 (50 x109/L)(33) []m. Leukemia or lymphoma induction therapy []n. Leukemia not in complete remission or with evidence of disease progression []o. Bone marrow transplant patient []p. Alemtuzumab being used for therapy []q. [employer] Association for Supportive Care in Cancer (MASCC) Risk Index score of less than 21[C](33)(35). []V. Isolation required (eg, tuberculosis that requires isolation, Ebola infection)[D](36)(37)(38)(39)(40) []. Gangrene that requires treatment beyond emergency or observation level care(41)(42) []VII. Antitoxin administration and ongoing observation required (eg, tetanus, botulism)(43)(44) []. Suspected infection with rapid progression or severe symptoms as indicated by ANY ONE of the following(45): []a. Streptococcal or staphylococcal toxic shock(46) []b. Diphtheria(47) []c. Hantavirus(48) []d. Severe acute respiratory syndrome(8)(49) []e. Anthrax(50) []f. Ebola[D](36)(37)(38) []g. Necrotizing soft tissue infection(41)(42) []h. Plague(50) []i. Other suspected infection that requires care beyond emergency or observation level care []VII. Severe adverse drug or systemic toxin reaction as indicated by ANY ONE of the following(24): []a. Serotonin syndrome(51)(52) []b. Neuroleptic malignant syndrome(51)(52) []c. Cholinergic syndrome with severe symptoms (eg, bronchorrhea, weakness , mental status changes, seizures)(53) []d. Anticholinergic syndrome []e. Sympathetic syndrome with severe symptoms (eg, seizures, mental status changes, cardiac dysrhythmias) []f. Other severe adverse drug or systemic toxin reaction that remains after emergency or observation level care (as appropriate) []VIII. Allergic reaction with severe symptoms (not responsive to emergency or observation care treatment as appropriate), including ANY ONE of the following(54): []a. Airway edema (pharyngeal, epiglottic, or laryngeal edema) []b. Stridor []c. Respiratory failure []d. Bronchospasm []e. Hypotension []IX. Environmental emergency (not responsive to emergency or observation care treatment as appropriate) as indicated by ANY ONE of the following(55)(56): []a. Hyperthermia []b. Heat stroke []c. Heat exhaustion []d. Hypothermia (temperature less than 95 degrees F (35 degrees C) rectal) (57) []e. Electrocution(58) []X. Complications of transplanted organ (ie, not covered elsewhere)[E] indicated by ANY ONE of the following(59): []a. Acute graft rejection (or graft vs. host disease)[F] requiring inpatient management (eg, intravenous immunosuppression)(60)(61)(62)( 63) []b. Acute failure of transplanted organ necessitating inpatient care (eg, cannot be managed in other setting) []c. Infection requiring inpatient management (eg, Hemodynamic instability, need for intravenous antimicrobial treatment)(64)(65) []d. Other complication of transplanted organ requiring inpatient management []XI. Systemic or Infectious Condition condition, symptom, or finding for which emergency and observation care have failed or are not considered appropriate. See General Criteria: Observation Care, General Admission Criteria or Pediatric General Admission Criteria guideline as appropriate. (Contents from SEVERE SEPSIS and SYSTEMIC OR INFECTIOUS CONDITION clinical indications for admission to inpatient care have been integrated in this form) The original [facility] content created by [facility] has been revised. The portions of the content which have been revised are identified through the use of italic text or in bold and [facility] has neither reviewed nor approved the modified material. All other unmodified content is copyright [facility]. Please see references footnoted in the original [facility] edition 2016 Admission Criteria Met: Yes
--- NOTE | 2016-09-24 12:15 | Consultation ---
History of Present Illness Consult date: 09/24/16 Requesting physician: ABDIRASHID MALDONADO Reason for consult: other (Acute Respiratory Failure on MVS; Altered Mental Status) History of present illness: PULMONARY/CCM CONSULT NOTE (Full dictation # [id number]) Please see dictated notes for full details Past History Past Medical History: atrial fib, DVT, pulmonary embolism, other (ICH) Past Surgical History: No surgical history Social history: no significant social history Family history: no significant family history Medications and Allergies Allergies Allergy/AdvReac Type Severity Reaction Status Date / Time No Known Allergies Allergy Unverified 09/24/16 08:36 Home Medications Medication Instructions Recorded Confirmed Last Taken Type Aspirin 81 mg PO DAILY 09/24/16 09/24/16 1 Day Ago History Diltiazem HCl [Diltiazem ER] 180 mg PO DAILY 09/24/16 09/24/16 1 Day Ago History Hydrochlorothiazide [HCTZ] 25 mg PO QDAY 09/24/16 09/24/16 1 Day Ago History Metoprolol Xl [Metoprolol 100 mg PO QDAY 09/24/16 09/24/16 1 Day Ago History SUCCINATE ER TAB] QUEtiapine [SEROquel] 25 mg PO DAILY 09/24/16 09/24/16 1 Day Ago History Tamsulosin [Flomax] 0.4 mg PO QDAY 09/24/16 09/24/16 1 Day Ago History Active Meds: Active Medications Al Hydrox/Mg Hydrox/Simethicone (Alum-Mag Hydrox-Simeth 748-101-86ir/5ml) 30 ml PO Q4H PRN PRN Reason: Indigestion Bisacodyl (Dulcolax) 10 mg [place] QDAY PRN PRN Reason: constipation unrelieved by MOM Diltiazem HCl (Cardizem Cd) 180 mg PO QDAY FROILAN Enoxaparin Sodium (Lovenox) 40 mg SUB-Q QDAY FROILAN Hydrophilic Ointment (Vaseline Lip Therapy) 1 applic TP Q2HR PRN PRN Reason: Dry Lips Midazolam HCl 100 mg/ Sodium (Chloride) 100 mls @ 2 mls/hr IV TITR FROILAN; 2 MG/HR PRN Reason: Protocol Last Titration: 09/24/16 11:53 Dose: 4 mg/hr, 4 mls/hr Diltiazem HCl (Cardizem/D5w 100mg/100ml) 100 mg in 100 mls @ 5 mls/hr IV TITR FROILAN; 5 MG/HR PRN Reason: Protocol Last Titration: 09/24/16 11:50 Dose: 10 mg/hr, 10 mls/hr Piperacillin Sod/Tazobactam Sod (Zosyn/Ns 4.5gm/100ml) 4.5 gm in 100 mls @ 200 mls/hr IV Q6HR FROILAN PRN Reason: Protocol Last Admin: 09/24/16 12:03 Dose: Not Given Levetiracetam 1,000 mg/ (Dextrose) 110 mls @ 400 mls/hr IV DAILY FROILAN Lorazepam (Ativan) 2 mg IV Q4H PRN PRN Reason: Seizures Magnesium Hydroxide (Milk Of Magnesia) 30 ml PO Q4H PRN PRN Reason: Constipation Metoprolol Succinate (Toprol Xl) 100 mg PO QDAY FROILAN Multi-Ingred Cream/Lotion/Oil/Oint (Artificial Tears Ophth Oint) 1 applic OU Q4HR PRN PRN Reason: Dry Eye(s) Sodium Chloride (Nacl 0.9% 500 Ml) 1 ml IV DIRECT FROILAN Tamsulosin HCl (Flomax) 0.4 mg PO QDAY FROILAN Physical Examination Vital signs: Vital Signs Pulse Resp BP Pulse Ox 166 H 12 190/128 90 09/24/16 08:27 09/24/16 08:27 09/24/16 08:27 09/24/16 08:27 Results - Laboratory Findings CBC and BMP: 09/24/16 08:36 09/24/16 08:45 ABG POC ABG pH 7.271 (7.35-7.45) L 09/24/16 11:02 POC ABG pCO2 45.8 (35-45) H 09/24/16 11:02 POC ABG pO2 102 (80-105) 09/24/16 11:02 POC ABG HCO3 21.1 09/24/16 11:02 POC ABG Total CO2 22 09/24/16 11:02 POC ABG O2 Sat 97 09/24/16 11:02
--- NOTE | 2016-09-24 14:10 | Consultation ---
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 He is previously unknown to our practice. He is followed by Dr. Tate Awad at [place]. Pt is intubated and sedated on evaluation and this HPI is obtained per records and per nursing staff at bedside. Pt presented to ED with status post seizure and altered mentation. Patient's reports that he was in the kitchen earlier this morning and suffered a fall/collapse that was heard in the other room. Patient's found him with generalized tonic-clonic seizures that lasted for approximately 1-2 minutes. Patient reportedly has had no history of seizures in the past including the time since his ICH in December of last year. The fall was unwitnessed and is uncertain of whether patient had head trauma. Patient had no prior reports of chest pain, headaches, visual disturbances or shortness of breath. As noted above, patient with history of intracranial hemorrhage in December 2015 previously on Xarelto. Patient with prolonged hospital course from acute hypoxic respiratory failure status [facility]. Patient was now recovering at home and doing fairly well prior to the episode noted above. Following arrival to ED, pt was noted to be in AFib with RVR. He then developed cardiopulmonary PEA arrest in which he lost his pulse for approximately 10 seconds and received 1 dose of epinephrine in ED. Patient reportedly also had a second seizure in the emergency room witnessed by the ER physician. Also, patient had a difficult intubation requiring anesthesiology assistance. Patient is currently intubated on Versed and diltiazem drip. Past History Past Medical History: atrial fib, DVT, pulmonary embolism, other (ICH) Past Surgical History: No surgical history Social history: no significant social history Family history: no significant family history Medications and Allergies Allergies Allergy/AdvReac Type Severity Reaction Status Date / Time No Known Allergies Allergy Unverified 09/24/16 08:36 Home Medications Medication Instructions Recorded Confirmed Last Taken Type Aspirin 81 mg PO DAILY 09/24/16 09/24/16 1 Day Ago History Diltiazem HCl [Diltiazem ER] 180 mg PO DAILY 09/24/16 09/24/16 1 Day Ago History Hydrochlorothiazide [HCTZ] 25 mg PO QDAY 09/24/16 09/24/16 1 Day Ago History Metoprolol Xl [Metoprolol 100 mg PO QDAY 09/24/16 09/24/16 1 Day Ago History SUCCINATE ER TAB] QUEtiapine [SEROquel] 25 mg PO DAILY 09/24/16 09/24/16 1 Day Ago History Tamsulosin [Flomax] 0.4 mg PO QDAY 09/24/16 09/24/16 1 Day Ago History Active Meds: Active Medications Al Hydrox/Mg Hydrox/Simethicone (Alum-Mag Hydrox-Simeth 843-199-37ug/5ml) 30 ml PO Q4H PRN PRN Reason: Indigestion Bisacodyl (Dulcolax) 10 mg [place] QDAY PRN PRN Reason: constipation unrelieved by MOM Diltiazem HCl (Cardizem Cd) 180 mg PO QDAY FROILAN Enoxaparin Sodium (Lovenox) 40 mg SUB-Q QDAY FROILAN Famotidine (Pepcid) 20 mg IV BID FROILAN Hydrophilic Ointment (Vaseline Lip Therapy) 1 applic TP Q2HR PRN PRN Reason: Dry Lips Midazolam HCl 100 mg/ Sodium (Chloride) 100 mls @ 2 mls/hr IV TITR FROILAN; 2 MG/HR PRN Reason: Protocol Last Titration: 09/24/16 11:53 Dose: 4 mg/hr, 4 mls/hr Diltiazem HCl (Cardizem/D5w 100mg/100ml) 100 mg in 100 mls @ 5 mls/hr IV TITR FROILAN; 5 MG/HR PRN Reason: Protocol Last Titration: 09/24/16 11:50 Dose: 10 mg/hr, 10 mls/hr Piperacillin Sod/Tazobactam Sod (Zosyn/Ns 4.5gm/100ml) 4.5 gm in 100 mls @ 200 mls/hr IV Q6HR FROILAN PRN Reason: Protocol Last Admin: 09/24/16 12:03 Dose: Not Given Levetiracetam 1,000 mg/ (Dextrose) 110 mls @ 400 mls/hr IV DAILY FROILAN Lorazepam (Ativan) 2 mg IV Q4H PRN PRN Reason: Seizures Magnesium Hydroxide (Milk Of Magnesia) 30 ml PO Q4H PRN PRN Reason: Constipation Metoprolol Succinate (Toprol Xl) 100 mg PO QDAY [facility] Multi-Ingred Cream/Lotion/Oil/Oint (Artificial Tears Ophth Oint) 1 applic OU Q4HR PRN PRN Reason: Dry Eye(s) Sodium Chloride (Nacl 0.9% 500 Ml) 1 ml IV DIRECT FROILAN Tamsulosin HCl (Flomax) 0.4 mg PO QDAY [facility] Review of Systems ROS unobtainable: due to endotracheal tube, due to mental status Physical Examination Vital Signs Pulse Resp BP Pulse Ox 166 H 12 190/128 90 09/24/16 08:27 09/24/16 08:27 09/24/16 08:27 09/24/16 08:27 General appearance: other (intubated, sedated) HEENT: Positive: PERRL Neck: Positive: neck supple, trachea midline Cardiac: Positive: irregularly irregular, S1/S2, Tachycardia Lungs: Positive: Decreased Breath Sounds, Oxygen, Ventilated Respirations. Negative: Rales, Wheezes, Rhonchi Neuro: Positive: Other (deferred; intubated and sedated) Abdomen: Positive: Soft, Active Bowel Sounds. Negative: Tender Skin: Positive: Clear. Negative: Rash, Wound Musculoskeletal: No Fluid Collection, No Pain, Normal Range of Motion Extremities: Present: upper extr. pulses, lower extr. pulses. Absent: edema Results 09/24/16 08:36 09/24/16 08:45 - Imaging and Cardiology Echo: report reviewed (01/09/2016: mild LVH, EF 55%, mild TR, moderately dilated RA, RVSP 51.2mmHg, trivial pericardial effusion, circumferential ) EKG: report reviewed, image reviewed EKG interpretations - Telemetry EKG Rhythm: Atrial Fibrillation - EKG Supraventricular dysrhythmia: atrial fibrillation (RVR) Assessment and Plan Assessment: S/p cardiopulmonary PEA arrest Acute respiratory failure - intubated Sepsis / lactic acidosis Chronic atrial fibrillation with RVR - NO HOSE TURNER ANTICOAGULATION d/t h/o spontaneous subdural hematoma Seizure disorder - neurology consultation pending Encephalopathy H/o DVT H/o 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 Continue cardizem gtt. Wean off for HR <120. Initiate IV lopressor, 5mg Q6H. Hold for HR <60 and SBP <100. Cont supportive management. The patient has been seen in conjunction with Dr. Garrido who agrees with the assessment and plan of care.
[2016-09-24] MEDS: PEPCID IV SCH ×2 (14:42→21:47)
[2016-09-24] MEDS ORDERED: SODIUM BICARBONATE FEEDTUBE PRN (15:11)
[2016-09-24] MEDS ORDERED: PANCREAZE DR 10,500 UNIT FEEDTUBE PRN (15:11)
[2016-09-24] MEDS ORDERED: SIMPLE SYRUP FEEDTUBE PRN ×2 (15:11)
[2016-09-24] MEDS: LOPRESSOR IV SCH ×2 (18:27→23:41)
[2016-09-24 21:26] LABS: ISTAT Base Excess -3; ISTAT HCO3 21.5; ISTAT PCO2 32.9 (35-45); ISTAT PH 7.423 (7.35-7.45); ISTAT PO2 111 (80-105); ISTAT SO2 99; ISTAT TCO2 22
[2016-09-25] MEDS: MIDAZOLAM 100 MG in NACL 0.9% 80 ML IV SCH ×2 (02:30→21:39)
--- NOTE | 2016-09-25 04:26 | Consultation ---
CONSULTING PHYSICIAN: Aj Pride MD REASON FOR CONSULTATION: Acute hypoxemic respiratory failure, status post seizures. CHIEF COMPLAINT AND HISTORY OF PRESENT ILLNESS: The patient is a 56-year-old male actually known to me from a prior admission in the long-term acute care facility, past medical history includes atrial fibrillation and history of intracranial hemorrhage that was suffered in December of last year. He was being treated for venous thromboembolic phenomenon with Xarelto at that time, it has since been stopped. According to the earlier today, he went into kitchen and then she heard him fall. When she got into the kitchen, he was suffering tonic-clonic generalized seizures, lasted about 1-2 minutes. It seems like emergency medical services were called. He had reportedly been doing good prior to this decompensation. While in the Emergency Room, he had another seizure activity and he required intubation and we were asked to assist with his care. When I stopped by to see him, he remained on the mechanical ventilator. He was also on a Cardizem drip. He had developed atrial fibrillation with a rapid ventricular response. I should mention he does have that history in the past. According to his , there was no nausea, vomiting, or overt obvious aspiration when she found him in the Emergency Room. He has a 10+ pack year tobacco smoking history, but has not smoked since December of last year. She denied any prior complaints of any systemic type illness or viral syndrome. She stated that he had been coughing once or twice, but nothing major. She is the one who had been sick in the house. Again, this is as much of the history of presentation as I have. PAST MEDICAL HISTORY: Atrial fibrillation, venous thromboembolic phenomenon. He has had a PE in the past. He has had an intracranial hemorrhage in the past and he is obese. PAST SURGICAL HISTORY: He is status post tracheostomy in the past. MEDICATIONS: He was on at the time I stopped by to see him, according to the medication administration record included the following: P.r.n. Dulcolax, Cardizem drip was going at 5 mg per hour. He has also been started on Cardizem-CD 180 mg p.o. daily. All p.o. meds will be via the feeding tube. Lovenox 40 mg subcutaneous daily was also ordered. Keppra 1 gram IV daily was ordered. He was on a Versed drip at 2 mg an hour. Ativan 2 mg IV q.4h. p.r.n. for seizures, metoprolol 100 mg p.o. daily, Zosyn 4.5 grams IV q.6h., Flomax 0.4 mg p.o. daily. ALLERGIES: No known drug allergies. DIET: Obese gentleman, no significant weight changes since I have last seen him. FAMILY AND SOCIAL HISTORY: Lives in the community. Drinks alcohol occasionally. He has a 10+ pack year tobacco smoking history. No illicit drug use or abuse. REVIEW OF SYSTEMS: Unobtainable secondary to the patient's medical and mental condition. Since he has been here, no gross hematochezia or melena, no gross hematuria, no hematemesis. No bloody tracheal secretions. He did have the seizures. PHYSICAL EXAMINATION: VITAL SIGNS: At presentation in the Emergency Room, temperature of 100.3 degrees Fahrenheit axillary, pulse was at presentation, respiratory rate was 12, blood pressure 190/128, oxygen sats 90, inspired oxygen concentration was not recorded. At that time, he has had some systolic blood pressures in the 200s. HEAD, EYES, EARS, NOSE, AND THROAT: Pupils are equal, although both round about 2 mm, very sluggishly reactive to light. Extraocular muscle movements could not be assessed. Endotracheal tube was in place, taped at the lips around 20-23 cm. Grossly, no palpable lymph nodes in the supraclavicular or submandibular lymph node chains. LUNGS: Auscultation of both lungs reveal some rales, scant bilateral rales, no wheezing. HEART: Heart sounds 1 and 2 are heard. They were regular in rate and rhythm at the time of my evaluation. ABDOMEN: Soft, full, bowel sounds are positive, did not appear tender. EXTREMITIES: Without overt digital clubbing or cyanosis. He had trace pedal edema, about 1+ on the left, trace on the right lower extremity. NEUROLOGIC: He was sedated. LABORATORY DATA: From my review are as follows: White cell count at presentation 14,400 with a hemoglobin of 17.4, hematocrit of 54.6, platelet count of 199. Arterial blood gas initially showed a pH of 7.27, pCO2 of 46, pO2 of 102 that was on 100% FIO2. Serum sodium was 146, potassium was 4, chloride 100, bicarbonate 9, BUN 13, creatinine 1.1, glucose 213. Lactic acid level was elevated at 4.1, AST 49, otherwise liver function tests within normal limits. TSH was up at 5.74. Urinalysis negative for nitrites and leukocyte esterase. Urine drug screen was negative. Alcohol level was unremarkable. Blood cultures have been sent, no growth to date. Radiographic studies have been reviewed. I have also reviewed the radiologist's interpretation, and I will say that I do agree with them. Chest x-ray, ET tube is in decent position about 3 cm above the adelaida, hypoventilation mostly. It is a lordotic film, no overt pulmonary edema. It does suggest cardiomegaly. No gross bony fractures. CT of the brain was described as a normal CT of the brain and a CTA of the chest was done that was negative for filling defects consistent with pulmonary emboli. It did show mild basilar atelectasis. ASSESSMENT AND PLAN: We have a middle-aged gentleman, status post two witnessed seizure, status post fall. From a respiratory standpoint, I will repeat the arterial blood gas shortly. In the short time, I will increase the set minute ventilation. Bronchodilators and pulmonary toilet will be per the respiratory care. Aspiration precautions and ventilator bundles will be instituted. We will wean oxygen as long as the O2 sats are greater than or equal to about 92-94% and the hope is that we can begin weaning him off the ventilator as early as tomorrow. From a cardiovascular standpoint, blood pressure is looking a little bit better now. We will resume his home medications. Cardiology evaluation will be at the behest of the attending physician. We will go ahead and again continue rate control with Cardizem. From a hematologic standpoint, I will get bilateral lower extremity Dopplers. It is unclear if he does have an IVC filter in place. A KUB will also be gotten. If he does have DVT without IVC filter that will be recommended. Otherwise, we will follow his hemoglobin level serially during this admission. He is appropriately on DVT prophylaxis. Now from a GI and nutritional standpoint, enteral nutrition will be the feeding modality of choice. He will be placed on GI prophylaxis and aspiration precautions will be maintained. From an infectious disease standpoint, I note the leukocytosis, it is unclear if it is a stress leukocytosis. I will get a CRP level. We will repeat the lactic acid levels. I will cover with the Levaquin in the short time for possible atypical pneumonia. His did mention he was having some coughing. Anti-infectives will ultimately be deescalated based on results of clinical and microbiologic data. Now from a renal standpoint, no major electrolyte abnormalities. Inputs and outputs will be monitored. Electrolytes will be corrected as necessary. From a DIRECTOR OF MARKET INTELLIGENCE standpoint, a Neurology evaluation or consultation will be appropriate. We will continue him on the Versed drip. There maybe a question of alcohol withdrawal at some point and we will keep an eye out for that. Otherwise, we will follow him clinically. Now From a general and hospital healthcare maintenance standpoint, he is going to be placed on GI prophylaxis. He is on DVT prophylaxis. Flu and pneumonia vaccination will be per protocol. Thank you very much for the consult, Dr. Pride. We will follow along. We will make further recommendations as picture progresses/becomes clearer. At this point, I have spent about 35-40 minutes of critical care time without overlap and excluding any procedural time that may be necessary. He is critically ill on life-sustaining interventions including mechanical ventilatory support at risk for further decompensation including . JOB# [id number] BEN/SEBASTIAN
[2016-09-25 05:09] LABS: Basophils % (Auto) 0.2 % (0.0-1.8); Eosinophils % (Auto) 0.1 % (0.0-4.3); Hematocrit 44.4 % (35.5-45.6); Mean Corpuscular HGB Conc 34 % (32-34); Mean Corpuscular Hemoglobin 29 pg (28-32); Mean Corpuscular Volume 87 fl (84-94); Platelet Count 149 K/mm3 (140-440); Red Blood Count 5.11 M/mm3 (3.65-5.03); Red Cell Distribution Width 16.7 % (13.2-15.2); White Blood Count 9.6 K/mm3 (4.5-11.0)
[2016-09-25 05:23] LABS: Blood Urea Nitrogen 12 mg/dL (9-20); Calcium 8.3 mg/dL (8.4-10.2); Carbon Dioxide 21 mmol/L (22-30); Chloride 108.1 mmol/L (98-107); Glucose 118 mg/dL (75-100); Potassium 3.6 mmol/L (3.6-5.0); Sodium 143 mmol/L (137-145)
[2016-09-25 05:28] LABS: Anion Gap 18 mmol/L
[2016-09-25 05:37] LABS: ISTAT Base Excess -2; ISTAT HCO3 22.7; ISTAT PCO2 37.3 (35-45); ISTAT PH 7.392 (7.35-7.45); ISTAT PO2 81 (80-105); ISTAT SO2 96; ISTAT TCO2 24
[2016-09-25] MEDS: LOPRESSOR IV SCH ×3 (05:48→18:36)
[2016-09-25] MEDS: ZOSYN/NS 4.5GM/100ML 4.5 GM/100 ML VIAL IV SCH ×2 (05:48→11:27)
[2016-09-25] MEDS: CARDIZEM/D5W 100MG/100ML 100 MG/100 ML BAG IV SCH (05:50)
--- NOTE | 2016-09-25 07:52 | XRay Report ---
AP CHEST: HISTORY: Followup respiratory failure The endotracheal tube and nasogastric tube are in good position. Mild cardiomegaly is stable since yesterday's exam. Minor atelectatic changes have developed in the lower lobes, otherwise, the lungs are clear. No new acute process is appreciated.
[2016-09-25] MEDS: FLOMAX PO SCH (09:29)
[2016-09-25] MEDS: LOVENOX SUB-Q SCH (09:30)
[2016-09-25] MEDS: CARDIZEM PO SCH ×5 (09:30→21:40)
[2016-09-25] MEDS: PEPCID IV SCH ×2 (09:30→21:40)
--- NOTE | 2016-09-25 09:51 | Progress Note ---
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 D/c cardizem gtt. Cont PO cardizem, 60 Q8H. Cont IV lopressor, 5mg Q6H. Hold for HR <60 and SBP <100. Cont supportive management. Await neurology evaluation. Assessment and plan reviewed [facility] pt's at beside. The patient has been seen in conjunction with Dr. Garrido who agrees with the assessment and plan of care. Subjective Date of service: 09/25/16 Principal diagnosis: cardiopulmonary PEA arrest; seizure d/o; AFib with RVR Interval history: Pt remains intubated, sedated. In AFib wit HR controlled in 80s, BPs stable. at bedside. Cardizem gtt infusing at 5mg/hr. Objective Last Vital Signs Temp 98.4 F 09/25/16 07:51 Pulse 87 09/25/16 09:30 Resp 20 09/25/16 05:00 BP 135/92 09/25/16 09:30 Pulse Ox 98 09/25/16 08:13 - Physical Examination General: Other (intubated, sedated ) HEENT: Positive: PERRL Neck: Positive: neck supple, trachea midline Cardiac: Positive: irregularly irregular, S1/S2 Lungs: Positive: Decreased Breath Sounds, Oxygen, Ventilated Respirations Neuro: Positive: Other (deferred; intubated and sedated) Abdomen: Positive: Soft, Active Bowel Sounds. Negative: Tender Skin: Positive: Clear. Negative: Rash, Wound Musculoskeletal: No Fluid Collection, No Pain, Normal Range of Motion Extremities: Present: upper extr. pulses, lower extr. pulses. Absent: edema - Labs and Meds CBC 09/25/16 Range/Units 04:07 WBC 9.6 (4.5-11.0) K/mm3 RBC 5.11 H (3.65-5.03) M/mm3 Hgb 15.0 (11.8-15.2) gm/dl Hct 44.4 D (35.5-45.6) % Plt Count 149 (140-440) K/mm3 Lymph # 0.9 L (1.2-5.4) K/mm3 [place] # 0.9 H (0.0-0.8) K/mm3 Eos # 0.0 (0.0-0.4) K/mm3 Baso # 0.0 (0.0-0.1) K/mm3 Comprehensive Metabolic Panel 09/25/16 Range/Units 04:07 Sodium 143 (137-145) mmol/L Potassium 3.6 (3.6-5.0) mmol/L Chloride 108.1 H (98-107) mmol/L Carbon Dioxide 21 L D (22-30) mmol/L BUN 12 (9-20) mg/dL Creatinine 1.0 (0.8-1.5) mg/dL Glucose 118 H (75-100) mg/dL Calcium 8.3 L (8.4-10.2) mg/dL - Imaging and Cardiology EKG: report reviewed, image reviewed Echo: report reviewed (01/09/2016: mild LVH, EF 55%, mild TR, moderately dilated RA, RVSP 51.2mmHg, trivial pericardial effusion, circumferential ) - Telemetry EKG Rhythm: Atrial Fibrillation
[2016-09-25] MEDS ORDERED: DILTIAZEM HCL 180 MG PO SCH (10:00)
[2016-09-25] MEDS ORDERED: KEPPRA 1,000 MG in D5W 100 ML IV SCH (10:00)
[2016-09-25] MEDS ORDERED: TOPROL XL PO SCH (10:00)
--- NOTE | 2016-09-25 10:42 | Progress Note ---
Assessment and Plan - Patient Problems (1) Acute hypoxemic respiratory failure Current Visit: Yes Status: Acute Plan to address problem: - continue bronchodilators and pulmonary toilet - continue aspiration precautions / VAP bundles - increase Peep to 8 and wean FiO2 for sats > 94% - continue bronchodilators and pulmonary toilet (2) Sepsis syndrome Current Visit: Yes Status: Acute Plan to address problem: - follow off AB's (3) Atrial fibrillation with RVR Current Visit: Yes Status: Acute Plan to address problem: - continue rate control with cardizem - cardiology evaluation ongoing - follow 2D ECHO (4) Oropharyngeal dysphagia Current Visit: Yes Status: Acute Plan to address problem: - begin enteral nutrition as tolerated (5) Discharge planning issues Current Visit: Yes Status: Acute Plan to address problem: - hopefully with increased Peep can get to </= 40% FiO2 and begin weaning via PSV as tolerated ...care plan discussed with at bedside ....he remains critically ill on life sustaining interventions including MVS and at risk for further deterioration including ..32' CCT Subjective Date of service: 09/25/16 Principal diagnosis: cardiopulmonary PEA arrest; seizure d/o; AFib with RVR Interval history: Seen and examined at bedside; 24 hour events reviewed; nursing and respiratory care staff consulted; no adverse overnight events reported to me; remains on MVS ; remains hypoxemic; seen by neurology; sedated now; in room; no emesis or overt aspiration Objective Vital Signs - 12hr 09/24/16 09/24/16 09/24/16 23:00 23:41 23:54 Temperature Pulse Rate 84 89 Pulse Rate [ 89 From Monitor] Pulse Rate [ 89 Right Apical] Respiratory 20 20 Rate Blood Pressure 117/83 120/82 O2 Sat by Pulse 98 100 Oximetry 09/25/16 09/25/16 09/25/16 00:00 00:17 01:00 Temperature Pulse Rate 83 83 76 Pulse Rate [ From Monitor] Pulse Rate [ Right Apical] Respiratory 20 20 Rate Blood Pressure 106/77 106/77 113/76 O2 Sat by Pulse 99 99 98 Oximetry 09/25/16 09/25/16 09/25/16 02:00 03:00 03:47 Temperature Pulse Rate 84 76 Pulse Rate [ 89 From Monitor] Pulse Rate [ 89 Right Apical] Respiratory 20 20 20 Rate Blood Pressure 107/82 111/81 O2 Sat by Pulse 98 98 98 Oximetry 09/25/16 09/25/16 09/25/16 04:00 04:24 05:00 Temperature Pulse Rate 74 76 78 Pulse Rate [ From Monitor] Pulse Rate [ Right Apical] Respiratory 20 20 Rate Blood Pressure 122/82 127/88 124/80 O2 Sat by Pulse 98 97 97 Oximetry 09/25/16 09/25/16 09/25/16 05:48 05:50 06:00 Temperature Pulse Rate 87 87 77 Pulse Rate [ From Monitor] Pulse Rate [ Right Apical] Respiratory 19 Rate Blood Pressure 139/86 139/86 114/71 O2 Sat by Pulse 97 Oximetry 09/25/16 09/25/16 09/25/16 07:00 07:51 08:00 Temperature 98.4 F Pulse Rate 76 83 Pulse Rate [ From Monitor] Pulse Rate [ Right Apical] Respiratory 20 20 Rate Blood Pressure 110/75 125/82 O2 Sat by Pulse 98 97 Oximetry 09/25/16 09/25/16 09/25/16 08:13 09:00 09:29 Temperature Pulse Rate 87 82 78 Pulse Rate [ From Monitor] Pulse Rate [ Right Apical] Respiratory 15 Rate Blood Pressure 125/82 137/98 135/92 O2 Sat by Pulse 98 98 Oximetry 09/25/16 09/25/16 09:30 10:00 Temperature Pulse Rate 87 80 Pulse Rate [ From Monitor] Pulse Rate [ Right Apical] Respiratory 14 Rate Blood Pressure 135/92 124/88 O2 Sat by Pulse 97 Oximetry Constitutional: no acute distress, other (sedate) Eyes: non-icteric ENT: oropharynx moist Neck: supple, no lymphadenopathy Effort: mildly labored Ascultation: Bilateral: diminished breath sounds, rales Cardiovascular: regular rate and rhythm Gastrointestinal: normoactive bowel sounds, soft, non-tender, non-distended Integumentary: normal Extremities: no cyanosis, no edema, pink and warm, pulses normal, no ischemia or petechiae Neurologic: unable to assess Psychiatric: other (sedated) CBC and BMP: 09/26/16 05:32 09/26/16 05:32 ABG, PT/INR, D-dimer: ABG POC ABG pH 7.392 (7.35-7.45) 09/25/16 05:05 POC ABG pCO2 37.3 (35-45) 09/25/16 05:05 POC ABG pO2 81 (80-105) 09/25/16 05:05 POC ABG HCO3 22.7 09/25/16 05:05 POC ABG Total CO2 24 09/25/16 05:05 POC ABG O2 Sat 96 09/25/16 05:05 Abnormal lab findings: Abnormal Labs 09/24/16 09/24/16 09/24/16 12:43 20:40 20:40 RBC RDW Lymph % (Auto) [place] % (Auto) Lymph # [place] # Seg Neutrophils % Seg Neutrophils # POC ABG pCO2 POC ABG pO2 Chloride Carbon Dioxide Glucose POC Glucose 130 H Lactic Acid 2.50 H* Calcium C-Reactive Protein 5.00 H 09/24/16 09/25/16 09/25/16 21:17 04:07 04:07 RBC 5.11 H RDW 16.7 H Lymph % (Auto) 9.0 L [place] % (Auto) 9.3 H Lymph # 0.9 L [place] # 0.9 H Seg Neutrophils % 81.4 H Seg Neutrophils # 7.8 H POC ABG pCO2 32.9 L POC ABG pO2 111 H Chloride 108.1 H Carbon Dioxide 21 L D Glucose 118 H POC Glucose Lactic Acid Calcium 8.3 L C-Reactive Protein Chest x-ray: image reviewed
--- NOTE | 2016-09-25 11:50 | Electroencephalogram Report ---
Electroencephalogram EEG Date of exam: 09/25/16 History: 56 YO M Hx R SDH p/w Sz. Impression: Abnormal 20 minute routine EEG in coma. There are findings to suggest moderate- severe nonspecific diffuse cerebral dysfunction slightly maximal in the right hemisphere which are at least in some part due to history of structural lesion and ongoing sedation and suspected post ictal state. There are no findings to suggest cortical irritability, epileptiform discharges or electrographic seizures. Description: There is no waking background. The background present shows an inappropriate organization with poorly-defined anterior posterior voltage and frequency gradients. Posteriorly, there is a poorly-developed alternating mixed theta and delta frequency background with superimposed non posterior dominant alpha and beta activity. There is slight asymmetry w/ attenuation of the right hemisphere frequencies. There is no clear reactivity or variability. There are no features of sleep. Throughout, the recording there are no epileptiform abnormalities, focal or lateralizing features, or significant interhemispheric findings otherwise. Interpretation: This is a digitally acquired 21-channel electroencephalogram. Both bipolar and referential montages were used in interpretation. Electrodes were placed in accordance with the International 10-20 system.
--- NOTE | 2016-09-25 11:56 | Consultation ---
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 He was brought to the ED w/ witnessed seizure and altered mentation on 5/ AM. Patient's reports that he was in the kitchen earlier this morning and suffered a fall/collapse that was heard in the other room. Patient's found him with generalized tonic-clonic seizures that lasted for approximately 1-2 minutes. Patient reportedly has had no history of seizures in the past Patient also developed a recent cardiopulmonary arrest in which he lost his pulse for approximately 10 seconds and received 1 dose of epinephrine. Patient reportedly also had a second seizure in the emergency room witnessed by the ER physician. Also, patient had a difficult intubation requiring anesthesiology assistance. Patient is currently intubated on Versed and diltiazem drip. Sx of AMS constant but when sedation paused pt thrashing reaching for ET tube. Severity of sz caused LOC. There are no other aggravating , relieving or temporal factors beyond some excess EtOH intake the night prior which is atypical. v Past History Past Medical History: atrial fib, DVT, pulmonary embolism, other (R SDH) Past Surgical History: Other (R hemisphere craniotomy ) Social history: , lives with family. denies: alcohol abuse, prescription drug abuse, IV drug use Family history: no significant family history Medications and Allergies Allergies Allergy/AdvReac Type Severity Reaction Status Date / Time No Known Allergies Allergy Unverified 09/24/16 08:36 Home Medications Medication Instructions Recorded Confirmed Last Taken Type Aspirin 81 mg PO DAILY 09/24/16 09/24/16 1 Day Ago History Diltiazem HCl [Diltiazem ER] 180 mg PO DAILY 09/24/16 09/24/16 1 Day Ago History Hydrochlorothiazide [HCTZ] 25 mg PO QDAY 09/24/16 09/24/16 1 Day Ago History Metoprolol Xl [Metoprolol 100 mg PO QDAY 09/24/16 09/24/16 1 Day Ago History SUCCINATE ER TAB] QUEtiapine [SEROquel] 25 mg PO DAILY 09/24/16 09/24/16 1 Day Ago History Tamsulosin [Flomax] 0.4 mg PO QDAY 09/24/16 09/24/16 1 Day Ago History Active Meds: Active Medications Al Hydrox/Mg Hydrox/Simethicone (Alum-Mag Hydrox-Simeth [id number]/5ml) 30 ml PO Q4H PRN PRN Reason: Indigestion Lipase/Protease/Amylase ([place] 10,500 Unit) 1 each FEEDTUBE PRN PRN PRN Reason: For Clogged Feeding Tube Last Admin: 09/25/16 10:09 Dose: 1 each Bisacodyl (Dulcolax) 10 mg [place] QDAY PRN PRN Reason: constipation unrelieved by MOM Diltiazem HCl (Cardizem) 60 mg PO Q8HR [facility] Last Admin: 09/25/16 09:30 Dose: 60 mg Enoxaparin Sodium (Lovenox) 40 mg SUB-Q QDAY [facility] Last Admin: 09/25/16 09:30 Dose: 40 mg Famotidine (Pepcid) 20 mg IV BID [facility] Last Admin: 09/25/16 09:30 Dose: 20 mg Hydrophilic Ointment (Vaseline Lip Therapy) 1 applic TP Q2HR PRN PRN Reason: Dry Lips Midazolam HCl 100 mg/ Sodium (Chloride) 100 mls @ 2 mls/hr IV TITR FROILAN; 2 MG/HR PRN Reason: Protocol Last Titration: 09/25/16 11:20 Dose: 0 mg/hr, 0 mls/hr Levetiracetam 1,000 mg/ (Dextrose) 110 mls @ 400 mls/hr IV DAILY [facility] Last Admin: 09/25/16 09:29 Dose: 400 mls/hr Lorazepam (Ativan) 2 mg IV Q4H PRN PRN Reason: Seizures/AGITATION Magnesium Hydroxide (Milk Of Magnesia) 30 ml PO Q4H PRN PRN Reason: Constipation Metoprolol Succinate (Toprol Xl) 100 mg PO QDAY [facility] Last Admin: 09/25/16 09:29 Dose: 100 mg Metoprolol Tartrate (Lopressor) 5 mg IV Q6HR [facility] Last Admin: 09/25/16 11:27 Dose: 5 mg Multi-Ingred Cream/Lotion/Oil/Oint (Artificial Tears Ophth Oint) 1 applic OU Q4HR PRN PRN Reason: Dry Eye(s) Simple Syrup (Simple Syrup) 15 ml FEEDTUBE PRN PRN PRN Reason: Hypoglycemia Simple Syrup (Simple Syrup) 30 ml FEEDTUBE PRN PRN PRN Reason: Hypoglycemia Sodium Bicarbonate (Sodium Bicarbonate) 325 mg FEEDTUBE PRN PRN PRN Reason: For Clogged Feeding Tube Last Admin: 09/25/16 10:09 Dose: 162.5 mg Sodium Chloride (Nacl 0.9% 500 Ml) 1 ml IV DIRECT FROILAN Tamsulosin HCl (Flomax) 0.4 mg PO QDAY FROILAN Last Admin: 09/25/16 09:29 Dose: 0.4 mg Review of Systems ROS unobtainable: due to endotracheal tube, due to mental status Physical Examination - Vital Signs Vital Signs: Vital Signs Pulse Resp BP Pulse Ox 166 H 12 190/128 90 09/24/16 08:27 09/24/16 08:27 09/24/16 08:27 09/24/16 08:27 - Constitutional General appearance: uncomfortable, acutely ill - EENT EENT: Present: ATNC, PERRL, mucous membranes moist, hearing intact - Respiratory Respiratory: Present: chest non-tender, normal breath sounds, no respiratory distress - Cardiovascular Cardiovascular: Present: regular rate Extremities: Present: no peripheral edema bilatateraly, no clubbing, cyanosis, no inflammation, no ischemia or petechiae - Gastrointestinal Gastrointestinal: Present: normoactive bowel sounds, soft, non-distended - Integumentary Integumentary: Present: normal - Neurologic Cranial nerve examination: PERRL, EOMI, VFF, face symmetric, intact, intact shoulder shrug, intact gag reflex, intact cough reflex, Intact Vestibulo-ocular r, intact corneal reflex Speech examination: other (no speech, not following commands) Sensorimotor examination: intact, other (localizes pain throughout) Detailed motor examination: grossly full strength in Motor examination - right side: 4/5: biceps, triceps, wrist flexion, wrist extension, poising inspector, hip flexors, knee extensors, dorsiflexion, toe extension (EHL) , plantarflexion Motor examination - left side: 4/5: biceps, triceps, wrist flexion, wrist extension, poising inspector, hip flexors, knee extensors, dorsiflexion, toe extension (EHL) , plantarflexion Detailed sensory examination: intact, pain Reflex and gait examination: intact Reflexes: 1+: ankle, 2+: bicep, knee, tricep - Musculoskeletal Musculoskeletal: Present: no fluid collection, normal range of motion - Psychiatric Psychiatric: Present: mood/affect appropriate Results - Laboratory Findings CBC and BMP: 09/25/16 04:07 09/25/16 04:07 Abnormal Lab Findings: Abnormal Labs 09/24/16 09/24/16 09/24/16 12:43 20:40 20:40 RBC RDW Lymph % (Auto) [place] % (Auto) Lymph # [place] # Seg Neutrophils % Seg Neutrophils # POC ABG pCO2 POC ABG pO2 Chloride Carbon Dioxide Glucose POC Glucose 130 H Lactic Acid 2.50 H* Calcium C-Reactive Protein 5.00 H 09/24/16 09/25/16 09/25/16 21:17 04:07 04:07 RBC 5.11 H RDW 16.7 H Lymph % (Auto) 9.0 L [place] % (Auto) 9.3 H Lymph # 0.9 L [place] # 0.9 H Seg Neutrophils % 81.4 H Seg Neutrophils # 7.8 H POC ABG pCO2 32.9 L POC ABG pO2 111 H Chloride 108.1 H Carbon Dioxide 21 L D Glucose 118 H POC Glucose Lactic Acid Calcium 8.3 L C-Reactive Protein Assessment and Plan 56 YO M Hx atrial fibrillation, DVT/PE previously on Xarelto but discontinued 2/ 2 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 He is intubated and sedated on Versed gtt but opens eyes attends briefly localizes pain throughout but does not yet follow commands although attempting to pull ETT. CTH nonacute. TSH 5.74. I suspect provoked seizure from Hx head trauma and prior night excess EtOH intake ? sleep deprivation. EEG w/o IEDs/Sz. Plan and Recommendation: 1. Telemetry bed w/ Q4 hour neuro checks & Sz precautions 2. Labs: Serum/Urine Tox, UA/UCx, Electrolytes especially Na, Ca, Mg, and Glucose, TSH/Vit B12/Ammonia and correct as necessary 3. Cont Infectious work up/medical management for UTI, PNA, cellulitis, bacteremia, etc. 4. Avoid hyponatremia, hypo/hyper-calcemia, hypo/hyperglycemia, acidosis, hypoxia/hypoxemia, hypercarbia/hypercapnia 5. Avoid institution of any psychoactive medications (e.g. antihistamines, anticholinergics, BZD, hypnotics, opiates) as able unless low doses of low potency antipsychotic needed for behavioral issues complicating medical care 6. AED therapy: Cont LEV @ 750mg BID 7. Avoid meds that can lower sz threshold e.g. Tramadol, fluroquinolones, carbapenems 8. Given unknown EtOH Hx would supplement Thiamine, Folate and B12 9. Pt's advised of [place] driving regulations: report date of presumed Seizure /unexplained loss of consciousness/awareness spell to DM, refrain from operating a motor vehicle for 6 months after this date, and avoid unsupervised activity particularly around water or heights
--- NOTE | 2016-09-25 13:19 | Progress Note ---
Assessment and Plan Assessment and plan: Sepsis. Continue IV antibiotics Continue to follow blood, sputum and urine cultures. Continue IV fluid hydration. Trend lactic acid levels. Acute hypoxic respiratory failure. Patient currently intubated on mechanical ventilation. Pulmonary following. Acute encephalopathy. CT scan of the head is negative. Patient will need an MRI/MRA when more stable. Neurology following. Atrial fibrillation with RVR. Diltiazem drip discontinued. Continue by mouth diltiazem Cardiology following. No long-term anticoagulation due to history of spontaneous subdural hematoma. Continue IV Lopressor every 6 hours History DVT/PE. No anticoagulation. Hemoptysis. Patient with significant blood in the ET tube. This may be related to trauma from difficult intubation. Follow-up CT of the chest. Monitor H&H. Seizure disorder. We will start Keppra. Ativan for breakthrough seizures. Seizure precautions. Neurology consultation. 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 Continue antihypertensives medications. History Interval history: No new issues overnight. Hospitalist Physical - Constitutional Vitals: Temp Pulse Resp BP Pulse Ox 98.7 F 76 20 111/79 95 09/25/16 12:02 09/25/16 11:58 09/25/16 11:58 09/25/16 11:58 09/25/16 11:58 General appearance: Present: other (intubated, sedated) - EENT Eyes: Present: PERRL, EOM intact ENT: hearing intact, clear oral mucosa, dentition normal - Neck Neck: Present: supple, normal ROM - Respiratory Respiratory effort: normal Respiratory: bilateral: CTA - Cardiovascular Rhythm: irregularly irregular Heart Sounds: Present: S1 & S2. Absent: gallop, rub - Extremities Extremities: no ischemia, No edema, Full ROM - Abdominal General gastrointestinal: soft, non-tender, non-distended, normal bowel sounds - Integumentary Integumentary: Present: clear, warm, dry - Neurologic Neurologic: CNII-XII intact, moves all extremities Results - Labs CBC & Chem 7: 09/25/16 04:07 09/25/16 04:07 Labs: Laboratory Last Values WBC 9.6 K/mm3 (4.5-11.0) 09/25/16 04:07 RBC 5.11 M/mm3 (3.65-5.03) H 05/02/17 04:07 Hgb 15.0 gm/dl (11.8-15.2) 09/25/16 04:07 Hct 44.4 % (35.5-45.6) D 09/25/16 04:07 MCV 87 fl (84-94) D 09/25/16 04:07 MCH 29 pg (28-32) 09/25/16 04:07 MCHC 34 % (32-34) 09/25/16 04:07 RDW 16.7 % (13.2-15.2) H 09/25/16 04:07 Plt Count 149 K/mm3 (140-440) 09/25/16 04:07 Lymph % (Auto) 9.0 % (13.4-35.0) L 09/25/16 04:07 [place] % (Auto) 9.3 % (0.0-7.3) H 09/25/16 04:07 Eos % (Auto) 0.1 % (0.0-4.3) 09/25/16 04:07 Baso % (Auto) 0.2 % (0.0-1.8) 09/25/16 04:07 Lymph # 0.9 K/mm3 (1.2-5.4) L 09/25/16 04:07 [place] # 0.9 K/mm3 (0.0-0.8) H 09/25/16 04:07 Eos # 0.0 K/mm3 (0.0-0.4) 09/25/16 04:07 Baso # 0.0 K/mm3 (0.0-0.1) 09/25/16 04:07 Add Manual Diff Complete 09/24/16 08:36 Total Counted 100 09/24/16 08:36 Seg Neutrophils % 81.4 % (40.0-70.0) H 09/25/16 04:07 Seg Neuts % (Manual) 65.0 % (40.0-70.0) 09/24/16 08:36 Band Neutrophils % 3.0 % 09/24/16 08:36 Lymphocytes % (Manual) 20.0 % (13.4-35.0) 09/24/16 08:36 Reactive Lymphs % (Man) 0 % 09/24/16 08:36 Monocytes % (Manual) 8.0 % (0.0-7.3) H 09/24/16 08:36 Eosinophils % (Manual) 3.0 % (0.0-4.3) 09/24/16 08:36 Basophils % (Manual) 1.0 % (0.0-1.8) 09/24/16 08:36 Metamyelocytes % 0 % 09/24/16 08:36 Myelocytes % 0 % 09/24/16 08:36 Promyelocytes % 0 % 09/24/16 08:36 Blast Cells % 0 % 09/24/16 08:36 Nucleated RBC % Not Reportable 09/24/16 08:36 Seg Neutrophils # 7.8 K/mm3 (1.8-7.7) H 09/25/16 04:07 Seg Neutrophils # Man 9.4 K/mm3 (1.8-7.7) H 09/24/16 08:36 Band Neutrophils # 0.4 K/mm3 09/24/16 08:36 Lymphocytes # (Manual) 2.9 K/mm3 (1.2-5.4) 09/24/16 08:36 Abs React Lymphs (Man) 0.0 K/mm3 09/24/16 08:36 Monocytes # (Manual) 1.2 K/mm3 (0.0-0.8) H 09/24/16 08:36 Eosinophils # (Manual) 0.4 K/mm3 (0.0-0.4) 09/24/16 08:36 Basophils # (Manual) 0.1 K/mm3 (0.0-0.1) 09/24/16 08:36 Metamyelocytes # 0.0 K/mm3 09/24/16 08:36 Myelocytes # 0.0 K/mm3 09/24/16 08:36 Promyelocytes # 0.0 K/mm3 09/24/16 08:36 Blast Cells # 0.0 K/mm3 09/24/16 08:36 WBC Morphology Not Reportable 09/24/16 08:36 Hypersegmented Neuts Not Reportable 09/24/16 08:36 Hyposegmented Neuts Not Reportable 09/24/16 08:36 Hypogranular Neuts Not Reportable 09/24/16 08:36 Smudge Cells Not Reportable 09/24/16 08:36 Toxic Granulation Not Reportable 09/24/16 08:36 Toxic Vacuolation Not Reportable 09/24/16 08:36 Dohle Bodies Not Reportable 09/24/16 08:36 Pelger-Huet Anomaly Not Reportable 09/24/16 08:36 Ben Rods Not Reportable 09/24/16 08:36 Platelet Estimate Appears normal 09/24/16 08:36 Clumped Platelets Not Reportable 09/24/16 08:36 Plt Clumps, EDTA Not Reportable 09/24/16 08:36 Large Platelets Not Reportable 09/24/16 08:36 Giant Platelets Not Reportable 09/24/16 08:36 Platelet Satelliting Not Reportable 09/24/16 08:36 Plt Morphology Comment Not Reportable 09/24/16 08:36 RBC Morphology Normal 09/24/16 08:36 Dimorphic RBCs Not Reportable 09/24/16 08:36 Polychromasia Not Reportable 09/24/16 08:36 Hypochromasia Not Reportable 09/24/16 08:36 Poikilocytosis Not Reportable 09/24/16 08:36 Anisocytosis Not Reportable 09/24/16 08:36 Microcytosis Not Reportable 09/24/16 08:36 Macrocytosis Not Reportable 09/24/16 08:36 Spherocytes Not Reportable 09/24/16 08:36 Pappenheimer Bodies Not Reportable 09/24/16 08:36 Sickle Cells Not Reportable 09/24/16 08:36 Target Cells Not Reportable 09/24/16 08:36 Tear Drop Cells Not Reportable 09/24/16 08:36 Ovalocytes Not Reportable 09/24/16 08:36 Helmet Cells Not Reportable 09/24/16 08:36 Cabrera-Creswell Bodies Not Reportable 09/24/16 08:36 Avery Rings Not Reportable 09/24/16 08:36 [place] Cells Not Reportable 09/24/16 08:36 Bite Cells Not Reportable 09/24/16 08:36 Crenated Cell Not Reportable 09/24/16 08:36 Elliptocytes Not Reportable 09/24/16 08:36 Acanthocytes (Spur) Not Reportable 09/24/16 08:36 Rouleaux Not Reportable 09/24/16 08:36 Hemoglobin C Crystals Not Reportable 09/24/16 08:36 Schistocytes Not Reportable 09/24/16 08:36 Malaria parasites Not Reportable 09/24/16 08:36 Sivakumar Bodies Not Reportable 09/24/16 08:36 Hem Pathologist Commnt No 09/24/16 08:36 POC ABG pH 7.392 (7.35-7.45) 09/25/16 05:05 POC ABG pCO2 37.3 (35-45) 09/25/16 05:05 POC ABG pO2 81 (80-105) 09/25/16 05:05 POC ABG HCO3 22.7 09/25/16 05:05 POC ABG Total CO2 24 09/25/16 05:05 POC ABG O2 Sat 96 09/25/16 05:05 POC ABG Base Excess -2 09/25/16 05:05 FiO2 60 % 09/25/16 05:05 Sodium 143 mmol/L (137-145) 09/25/16 04:07 Potassium 3.6 mmol/L (3.6-5.0) 09/25/16 04:07 Chloride 108.1 mmol/L (98-107) H 09/25/16 04:07 Carbon Dioxide 21 mmol/L (22-30) L D 09/25/16 04:07 Anion Gap 18 mmol/L 09/25/16 04:07 BUN 12 mg/dL (9-20) 09/25/16 04:07 Creatinine 1.0 mg/dL (0.8-1.5) 09/25/16 04:07 Estimated GFR > 60 ml/min 09/25/16 04:07 BUN/Creatinine Ratio 12.00 % 09/25/16 04:07 Glucose 118 mg/dL (75-100) H 09/25/16 04:07 POC Glucose 130 (70-105) H 09/24/16 12:43 Lactic Acid 1.90 mmol/L (0.7-2.0) 09/24/16 23:11 Calcium 8.3 mg/dL (8.4-10.2) L 09/25/16 04:07 Magnesium 2.20 mg/dL (1.7-2.3) 09/24/16 08:45 Total Bilirubin 0.40 mg/dL (0.1-1.2) 09/24/16 08:45 AST 49 units/L (5-40) H 09/24/16 08:45 ALT 56 units/L (7-56) 09/24/16 08:45 Alkaline Phosphatase 82 units/L (35-129) 09/24/16 08:45 Troponin T < 0.010 ng/mL (0.00-0.029) 09/24/16 23:11 C-Reactive Protein 5.00 mg/dL (0.00-1.30) H 09/24/16 20:40 Total Protein 7.6 g/dL (6.3-8.2) 09/24/16 08:45 Albumin 4.3 g/dL (3.9-5) 09/24/16 08:45 Albumin/Globulin Ratio 1.3 % 09/24/16 08:45 TSH 5.740 mlU/mL (0.270-4.200) H 09/24/16 08:36 Urine Color Yellow (Yellow) 09/24/16 09:01 Urine Turbidity Cloudy (Clear) 09/24/16 09:01 Urine pH 5.0 (5.0-7.0) 09/24/16 09:01 Ur Specific [place] 1.013 (1.003-1.030) 09/24/16 09:01 Urine Protein >500 mg/dL (Negative) 09/24/16 09:01 Urine Glucose (UA) 50 mg/dL (Negative) 09/24/16 09:01 Urine Ketones Neg mg/dL (Negative) 09/24/16 09:01 Urine Blood Sm (Negative) 09/24/16 09:01 Urine Nitrite Neg (Negative) 09/24/16 09:01 Urine Bilirubin Neg (Negative) 09/24/16 09:01 Urine Urobilinogen < 2.0 mg/dL (<2.0) 09/24/16 09:01 Ur Leukocyte Esterase Neg (Negative) 09/24/16 09:01 Urine WBC (Auto) 13.0 /HPF (0.0-6.0) H 09/24/16 09:01 Urine RBC (Auto) 10.0 /HPF (0.0-6.0) 09/24/16 09:01 Urine Bacteria (Auto) 4+ /HPF (Negative) 09/24/16 09:01 Salicylates < 0.3 mg/dL (2.8-20.0) L 09/24/16 08:45 Urine Opiates Screen Presumptive negative 09/24/16 09:01 Urine Methadone Screen Presumptive negative 09/24/16 09:01 Acetaminophen < 15.0 ug/mL (10.0-30.0) 09/24/16 08:45 Ur Barbiturates Screen Presumptive negative 09/24/16 09:01 Ur Phencyclidine Scrn Presumptive negative 09/24/16 09:01 Ur Amphetamines Screen Presumptive negative 09/24/16 09:01 U Benzodiazepines Scrn Presumptive negative 09/24/16 09:01 Urine Cocaine Screen Presumptive negative 09/24/16 09:01 U Marijuana (THC) Screen Presumptive negative 09/24/16 09:01 Drugs of Abuse Note Disclamer 09/24/16 09:01 Plasma/Serum Alcohol < 0.01 gm% (0-0.07) 09/24/16 08:36 Blood Type A NEGATIVE 09/24/16 08:43 Antibody Screen TNR 09/24/16 08:43 AMOR Antibody Screen Negative 09/24/16 08:43
[2016-09-25] MEDS ORDERED: PANCREAZE DR 10,500 UNIT FEEDTUBE PRN (13:49)
[2016-09-25] MEDS ORDERED: SIMPLE SYRUP FEEDTUBE PRN ×2 (13:49)
[2016-09-25] MEDS ORDERED: SODIUM BICARBONATE FEEDTUBE PRN (13:49)
--- NOTE | 2016-09-25 15:04 | XRay Report ---
ABDOMEN RADIOGRAPH INDICATION: NG tube placement. COMPARISON: None similar. FINDINGS: Frontal abdominal radiograph demonstrates esophagogastric tube looped in the mid stomach and folded over its approximately 6 cm distal segment with its tip projecting left paraspinal at T12. Nonobstructive left hemiabdomen bowel gas pattern. Right hemiabdomen/flank and lower pelvis excluded from the radiograph margins. EKG leads. Multilevel spinal degenerative changes. Nonspecific haziness at the imaged lung bases, possibly atelectasis/fluid. CONCLUSION: Nasogastric tube looped in the proximal to mid stomach with few other findings, as detailed above. Thank you for the opportunity to participate in this patient's care.
--- NOTE | 2016-09-25 15:23 | XRay Report ---
ABDOMEN RADIOGRAPHS INDICATION: Dobbhoff placement. COMPARISON: 12:28 PM earlier today. FINDINGS: Frontal abdominal radiograph, 2:57 PM, 09/25/2016 demonstrates interval esophagogastric tube removal and a new Dobbhoff tube with its tip along the distal stomach near the pylorus. No other significant interval change, including a 7 mm density at L3 level, possibly left renal calculus. CONCLUSION: Satisfactory Dobbhoff tube placement, as described. Thank you for the opportunity to participate in this patient's care.
[2016-09-25] MEDS: MILK OF MAGNESIA PO PRN (17:17)
[2016-09-25] MEDS: KEPPRA 750 MG in D5W 100 ML IV SCH (21:57)
[2016-09-26] MEDS: LOPRESSOR IV SCH ×2 (01:57→06:21)
[2016-09-26 04:01] LABS: ISTAT Base Excess 1; ISTAT HCO3 24.9; ISTAT PCO2 36.7 (35-45); ISTAT PH 7.439 (7.35-7.45); ISTAT PO2 62 (80-105); ISTAT SO2 92; ISTAT TCO2 26
[2016-09-26 06:15] LABS: Basophils % (Auto) 0.4 % (0.0-1.8); Hematocrit 43.6 % (35.5-45.6); Hemoglobin 14.4 gm/dl (11.8-15.2); Mean Corpuscular HGB Conc 33 % (32-34); Mean Corpuscular Hemoglobin 30 pg (28-32); Mean Corpuscular Volume 89 fl (84-94); Platelet Count 141 K/mm3 (140-440); Red Blood Count 4.91 M/mm3 (3.65-5.03); Red Cell Distribution Width 16.4 % (13.2-15.2); White Blood Count 7.8 K/mm3 (4.5-11.0)
[2016-09-26] MEDS: CARDIZEM PO SCH ×3 (06:21→22:09)
[2016-09-26 06:34] LABS: Anion Gap 16 mmol/L; BUN/Creatinine Ratio 16.25; Blood Urea Nitrogen 13 mg/dL (9-20); Calcium 8.5 mg/dL (8.4-10.2); Carbon Dioxide 23 mmol/L (22-30); Chloride 110.8 mmol/L (98-107); Glucose 93 mg/dL (75-100); Potassium 3.9 mmol/L (3.6-5.0); Sodium 146 mmol/L (137-145)
[2016-09-26] MEDS: LOVENOX SUB-Q SCH (09:44)
[2016-09-26] MEDS: LOPRESSOR PO SCH ×2 (09:45→22:10)
[2016-09-26] MEDS: PEPCID PO SCH ×2 (09:45→22:09)
[2016-09-26] MEDS: MILK OF MAGNESIA PO PRN (09:45)
[2016-09-26] MEDS: THERAGRAN Tab PO SCH (09:46)
[2016-09-26] MEDS: VITAMIN B-1 PO SCH (09:46)
[2016-09-26] MEDS: FOLVITE PO SCH (09:46)
[2016-09-26] MEDS: FLOMAX PO SCH (09:46)
[2016-09-26] MEDS: KEPPRA 750 MG in D5W 100 ML IV SCH (09:56)
--- NOTE | 2016-09-26 10:36 | Progress Note ---
Assessment and Plan Assessment and plan: Sepsis. Continue IV antibiotics Continue to follow blood, sputum and urine cultures. Continue IV fluid hydration. Trend lactic acid levels. Acute hypoxic respiratory failure. Patient currently intubated on mechanical ventilation. Pulmonary following. Acute encephalopathy. CT scan of the head is negative. Patient will need an MRI/MRA when more stable. Neurology following. EEG reveals no epileptiform abnormalities, focal or lateralizing features or interhemispheric findings. Atrial fibrillation with RVR. Diltiazem drip discontinued. Continue by mouth diltiazem. Cardiology following. No long-term anticoagulation due to history of spontaneous subdural hematoma. Continue IV Lopressor every 6 hours History DVT/PE. No anticoagulation. Seizure disorder. Continue Keppra 750 mg twice a day. Ativan for breakthrough seizures. Seizure precautions. Neurology consultation. 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 Continue antihypertensives medications. History Interval history: No new issues overnight. Patient remains intubated and sedated. However, patient does respond to simple commands. at bedside. All questions answered. Hospitalist Physical - Constitutional Vitals: Temp Pulse Resp BP Pulse Ox 99.2 F 72 14 124/86 99 09/26/16 08:00 09/26/16 09:45 09/26/16 08:00 09/26/16 09:45 09/26/16 08:21 General appearance: Present: other (intubated, sedated) - EENT Eyes: Present: PERRL, EOM intact ENT: hearing intact, clear oral mucosa, dentition normal - Neck Neck: Present: supple, normal ROM - Respiratory Respiratory effort: normal Respiratory: bilateral: CTA - Cardiovascular Rhythm: regular Heart Sounds: Present: S1 & S2. Absent: gallop, rub - Extremities Extremities: no ischemia, No edema, Full ROM - Abdominal General gastrointestinal: soft, non-tender, non-distended, normal bowel sounds - Integumentary Integumentary: Present: clear, warm, dry - Neurologic Neurologic: CNII-XII intact, moves all extremities Results - Labs CBC & Chem 7: 09/26/16 05:32 09/26/16 05:32 Labs: Laboratory Last Values WBC 7.8 K/mm3 (4.5-11.0) 09/26/16 05:32 RBC 4.91 M/mm3 (3.65-5.03) 09/26/16 05:32 Hgb 14.4 gm/dl (11.8-15.2) 09/26/16 05:32 Hct 43.6 % (35.5-45.6) 09/26/16 05:32 MCV 89 fl (84-94) 09/26/16 05:32 MCH 30 pg (28-32) 09/26/16 05:32 MCHC 33 % (32-34) 09/26/16 05:32 RDW 16.4 % (13.2-15.2) H 09/26/16 05:32 Plt Count 141 K/mm3 (140-440) 09/26/16 05:32 Lymph % (Auto) 15.1 % (13.4-35.0) 09/26/16 05:32 [place] % (Auto) 8.4 % (0.0-7.3) H 09/26/16 05:32 Eos % (Auto) 1.0 % (0.0-4.3) 09/26/16 05:32 Baso % (Auto) 0.4 % (0.0-1.8) 09/26/16 05:32 Lymph # 1.2 K/mm3 (1.2-5.4) 09/26/16 05:32 [place] # 0.7 K/mm3 (0.0-0.8) 09/26/16 05:32 Eos # 0.1 K/mm3 (0.0-0.4) 09/26/16 05:32 Baso # 0.0 K/mm3 (0.0-0.1) 09/26/16 05:32 Add Manual Diff Complete 09/24/16 08:36 Total Counted 100 09/24/16 08:36 Seg Neutrophils % 75.1 % (40.0-70.0) H 09/26/16 05:32 Seg Neuts % (Manual) 65.0 % (40.0-70.0) 09/24/16 08:36 Band Neutrophils % 3.0 % 09/24/16 08:36 Lymphocytes % (Manual) 20.0 % (13.4-35.0) 09/24/16 08:36 Reactive Lymphs % (Man) 0 % 09/24/16 08:36 Monocytes % (Manual) 8.0 % (0.0-7.3) H 09/24/16 08:36 Eosinophils % (Manual) 3.0 % (0.0-4.3) 09/24/16 08:36 Basophils % (Manual) 1.0 % (0.0-1.8) 09/24/16 08:36 Metamyelocytes % 0 % 09/24/16 08:36 Myelocytes % 0 % 09/24/16 08:36 Promyelocytes % 0 % 09/24/16 08:36 Blast Cells % 0 % 09/24/16 08:36 Nucleated RBC % Not Reportable 09/24/16 08:36 Seg Neutrophils # 5.8 K/mm3 (1.8-7.7) 09/26/16 05:32 Seg Neutrophils # Man 9.4 K/mm3 (1.8-7.7) H 09/24/16 08:36 Band Neutrophils # 0.4 K/mm3 09/24/16 08:36 Lymphocytes # (Manual) 2.9 K/mm3 (1.2-5.4) 09/24/16 08:36 Abs React Lymphs (Man) 0.0 K/mm3 09/24/16 08:36 Monocytes # (Manual) 1.2 K/mm3 (0.0-0.8) H 09/24/16 08:36 Eosinophils # (Manual) 0.4 K/mm3 (0.0-0.4) 09/24/16 08:36 Basophils # (Manual) 0.1 K/mm3 (0.0-0.1) 09/24/16 08:36 Metamyelocytes # 0.0 K/mm3 09/24/16 08:36 Myelocytes # 0.0 K/mm3 09/24/16 08:36 Promyelocytes # 0.0 K/mm3 09/24/16 08:36 Blast Cells # 0.0 K/mm3 09/24/16 08:36 WBC Morphology Not Reportable 09/24/16 08:36 Hypersegmented Neuts Not Reportable 09/24/16 08:36 Hyposegmented Neuts Not Reportable 09/24/16 08:36 Hypogranular Neuts Not Reportable 09/24/16 08:36 Smudge Cells Not Reportable 09/24/16 08:36 Toxic Granulation Not Reportable 09/24/16 08:36 Toxic Vacuolation Not Reportable 09/24/16 08:36 Dohle Bodies Not Reportable 09/24/16 08:36 Pelger-Huet Anomaly Not Reportable 09/24/16 08:36 Ben Rods Not Reportable 09/24/16 08:36 Platelet Estimate Appears normal 09/24/16 08:36 Clumped Platelets Not Reportable 09/24/16 08:36 Plt Clumps, EDTA Not Reportable 09/24/16 08:36 Large Platelets Not Reportable 09/24/16 08:36 Giant Platelets Not Reportable 09/24/16 08:36 Platelet Satelliting Not Reportable 09/24/16 08:36 Plt Morphology Comment Not Reportable 09/24/16 08:36 RBC Morphology Normal 09/24/16 08:36 Dimorphic RBCs Not Reportable 09/24/16 08:36 Polychromasia Not Reportable 09/24/16 08:36 Hypochromasia Not Reportable 09/24/16 08:36 Poikilocytosis Not Reportable 09/24/16 08:36 Anisocytosis Not Reportable 09/24/16 08:36 Microcytosis Not Reportable 09/24/16 08:36 Macrocytosis Not Reportable 09/24/16 08:36 Spherocytes Not Reportable 09/24/16 08:36 Pappenheimer Bodies Not Reportable 09/24/16 08:36 Sickle Cells Not Reportable 09/24/16 08:36 Target Cells Not Reportable 09/24/16 08:36 Tear Drop Cells Not Reportable 09/24/16 08:36 Ovalocytes Not Reportable 09/24/16 08:36 Helmet Cells Not Reportable 09/24/16 08:36 [place] Bodies Not Reportable 09/24/16 08:36 [place] Rings Not Reportable 09/24/16 08:36 [place] Cells Not Reportable 09/24/16 08:36 Bite Cells Not Reportable 09/24/16 08:36 Crenated Cell Not Reportable 09/24/16 08:36 Elliptocytes Not Reportable 09/24/16 08:36 Acanthocytes (Spur) Not Reportable 09/24/16 08:36 Rouleaux Not Reportable 09/24/16 08:36 Hemoglobin C Crystals Not Reportable 09/24/16 08:36 Schistocytes Not Reportable 09/24/16 08:36 Malaria parasites Not Reportable 09/24/16 08:36 Sivakumar Bodies Not Reportable 09/24/16 08:36 Hem Pathologist Commnt No 09/24/16 08:36 POC ABG pH 7.439 (7.35-7.45) 09/26/16 03:45 POC ABG pCO2 36.7 (35-45) 09/26/16 03:45 POC ABG pO2 62 (80-105) L 09/26/16 03:45 POC ABG HCO3 24.9 09/26/16 03:45 POC ABG Total CO2 26 09/26/16 03:45 POC ABG O2 Sat 92 09/26/16 03:45 POC ABG Base Excess 1 09/26/16 03:45 FiO2 40 % 09/26/16 03:45 Sodium 146 mmol/L (137-145) H 09/26/16 05:32 Potassium 3.9 mmol/L (3.6-5.0) 09/26/16 05:32 Chloride 110.8 mmol/L (98-107) H 09/26/16 05:32 Carbon Dioxide 23 mmol/L (22-30) 09/26/16 05:32 Anion Gap 16 mmol/L 09/26/16 05:32 BUN 13 mg/dL (9-20) 09/26/16 05:32 Creatinine 0.8 mg/dL (0.8-1.5) 09/26/16 05:32 Estimated GFR > 60 ml/min 09/26/16 05:32 BUN/Creatinine Ratio 16.25 % 09/26/16 05:32 Glucose 93 mg/dL (75-100) 09/26/16 05:32 POC Glucose 86 (70-105) 09/25/16 23:34 Lactic Acid 1.90 mmol/L (0.7-2.0) 09/24/16 23:11 Calcium 8.5 mg/dL (8.4-10.2) 09/26/16 05:32 Magnesium 2.20 mg/dL (1.7-2.3) 09/24/16 08:45 Total Bilirubin 0.40 mg/dL (0.1-1.2) 09/24/16 08:45 AST 49 units/L (5-40) H 09/24/16 08:45 ALT 56 units/L (7-56) 09/24/16 08:45 Alkaline Phosphatase 82 units/L (35-129) 09/24/16 08:45 Troponin T < 0.010 ng/mL (0.00-0.029) 09/24/16 23:11 C-Reactive Protein 5.00 mg/dL (0.00-1.30) H 09/24/16 20:40 Total Protein 7.6 g/dL (6.3-8.2) 09/24/16 08:45 Albumin 4.3 g/dL (3.9-5) 09/24/16 08:45 Albumin/Globulin Ratio 1.3 % 09/24/16 08:45 TSH 5.740 mlU/mL (0.270-4.200) H 09/24/16 08:36 Urine Color Yellow (Yellow) 09/24/16 09:01 Urine Turbidity Cloudy (Clear) 09/24/16 09:01 Urine pH 5.0 (5.0-7.0) 09/24/16 09:01 Ur Specific [place] 1.013 (1.003-1.030) 09/24/16 09:01 Urine Protein >500 mg/dL (Negative) 09/24/16 09:01 Urine Glucose (UA) 50 mg/dL (Negative) 09/24/16 09:01 Urine Ketones Neg mg/dL (Negative) 09/24/16 09:01 Urine Blood Sm (Negative) 09/24/16 09:01 Urine Nitrite Neg (Negative) 09/24/16 09:01 Urine Bilirubin Neg (Negative) 09/24/16 09:01 Urine Urobilinogen < 2.0 mg/dL (<2.0) 09/24/16 09:01 Ur Leukocyte Esterase Neg (Negative) 09/24/16 09:01 Urine WBC (Auto) 13.0 /HPF (0.0-6.0) H 09/24/16 09:01 Urine RBC (Auto) 10.0 /HPF (0.0-6.0) 09/24/16 09:01 Urine Bacteria (Auto) 4+ /HPF (Negative) 09/24/16 09:01 Salicylates < 0.3 mg/dL (2.8-20.0) L 09/24/16 08:45 Urine Opiates Screen Presumptive negative 09/24/16 09:01 Urine Methadone Screen Presumptive negative 09/24/16 09:01 Acetaminophen < 15.0 ug/mL (10.0-30.0) 09/24/16 08:45 Ur Barbiturates Screen Presumptive negative 09/24/16 09:01 Ur Phencyclidine Scrn Presumptive negative 09/24/16 09:01 Ur Amphetamines Screen Presumptive negative 09/24/16 09:01 U Benzodiazepines Scrn Presumptive negative 09/24/16 09:01 Urine Cocaine Screen Presumptive negative 09/24/16 09:01 U Marijuana (THC) Screen Presumptive negative 09/24/16 09:01 Drugs of Abuse Note Disclamer 09/24/16 09:01 Plasma/Serum Alcohol < 0.01 gm% (0-0.07) 09/24/16 08:36 Blood Type A NEGATIVE 09/24/16 08:43 Antibody Screen TNR 09/24/16 08:43 AMOR Antibody Screen Negative 09/24/16 08:43
--- NOTE | 2016-09-26 10:55 | XRay Report ---
Portable chest: Expiratory failure. Comparison is made to prior study of September 25. There is continued opacity at the left lung base obscuring the hemidiaphragm. Right lung is clear. No change in the well-positioned endotracheal and nasogastric tubes. Impression: Persistent left basilar opacity.
[2016-09-26] MEDS ORDERED: CEPHULAC PO ONE (11:00)
--- NOTE | 2016-09-26 11:21 | Progress Note ---
Subjective Date of service: 09/26/16 Principal diagnosis: cardiopulmonary PEA arrest; seizure d/o; AFib with RVR Interval history: Seen and examined at bedside; 24 hour events reviewed; nursing and respiratory care staff consulted; no adverse overnight events reported to me; Objective Vital Signs - 12hr 09/25/16 09/26/16 09/26/16 23:40 00:00 00:01 Temperature 99.4 F Pulse Rate 83 89 Pulse Rate [ From Monitor] Respiratory 18 21 Rate Blood Pressure 130/90 126/75 O2 Sat by Pulse 95 97 96 Oximetry 09/26/16 09/26/16 09/26/16 01:00 01:57 02:00 Temperature Pulse Rate 79 84 83 Pulse Rate [ From Monitor] Respiratory 17 18 Rate Blood Pressure 137/82 133/83 125/90 O2 Sat by Pulse 96 96 Oximetry 09/26/16 09/26/16 09/26/16 03:00 03:28 04:00 Temperature Pulse Rate 85 68 85 Pulse Rate [ From Monitor] Respiratory 18 16 Rate Blood Pressure 135/91 124/88 134/83 O2 Sat by Pulse 97 96 97 Oximetry 09/26/16 09/26/16 09/26/16 04:36 05:00 06:00 Temperature 99.6 F Pulse Rate 72 91 H Pulse Rate [ From Monitor] Respiratory 18 20 Rate Blood Pressure 147/84 153/119 O2 Sat by Pulse 97 98 Oximetry 09/26/16 09/26/16 09/26/16 06:21 07:00 08:00 Temperature 99.2 F Pulse Rate 82 85 76 Pulse Rate [ 76 From Monitor] Respiratory 16 14 Rate Blood Pressure 130/94 129/91 124/94 O2 Sat by Pulse 100 97 Oximetry 09/26/16 09/26/16 08:21 09:45 Temperature Pulse Rate 74 72 Pulse Rate [ From Monitor] Respiratory Rate Blood Pressure 134/92 124/86 O2 Sat by Pulse 99 Oximetry Gastrointestinal: normoactive bowel sounds, soft, non-distended Integumentary: normal CBC and BMP: 09/26/16 05:32 09/26/16 05:32 ABG, PT/INR, D-dimer: ABG POC ABG pH 7.439 (7.35-7.45) 09/26/16 03:45 POC ABG pCO2 36.7 (35-45) 09/26/16 03:45 POC ABG pO2 62 (80-105) L 09/26/16 03:45 POC ABG HCO3 24.9 09/26/16 03:45 POC ABG Total CO2 26 09/26/16 03:45 POC ABG O2 Sat 92 09/26/16 03:45 Abnormal lab findings: Abnormal Labs 09/24/16 09/24/16 09/24/16 12:43 20:40 20:40 RBC RDW Lymph % (Auto) [place] % (Auto) Lymph # [place] # Seg Neutrophils % Seg Neutrophils # POC ABG pCO2 POC ABG pO2 Sodium Chloride Carbon Dioxide Glucose POC Glucose 130 H Lactic Acid 2.50 H* Calcium C-Reactive Protein 5.00 H 09/24/16 09/25/16 09/25/16 21:17 04:07 04:07 RBC 5.11 H RDW 16.7 H Lymph % (Auto) 9.0 L [place] % (Auto) 9.3 H Lymph # 0.9 L [place] # 0.9 H Seg Neutrophils % 81.4 H Seg Neutrophils # 7.8 H POC ABG pCO2 32.9 L POC ABG pO2 111 H Sodium Chloride 108.1 H Carbon Dioxide 21 L D Glucose 118 H POC Glucose Lactic Acid Calcium 8.3 L C-Reactive Protein 09/26/16 09/26/16 09/26/16 03:45 05:32 05:32 RBC RDW 16.4 H Lymph % (Auto) [place] % (Auto) 8.4 H Lymph # [place] # Seg Neutrophils % 75.1 H Seg Neutrophils # POC ABG pCO2 POC ABG pO2 62 L Sodium 146 H Chloride 110.8 H Carbon Dioxide Glucose POC Glucose Lactic Acid Calcium C-Reactive Protein
--- NOTE | 2016-09-26 12:00 | Progress Note ---
Assessment and Plan 56 YO M Hx atrial fibrillation, DVT/PE previously on Xarelto but discontinued / 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 on 09/25 he was intubated and sedated on Versed gtt but opened eyes attending briefly localizing pain throughout. On 09/26 off sedation pt nods to name and follows all commands w/o recurrent seizure witnessed. CTH nonacute. TSH 5.74. I suspect provoked seizure from Hx head trauma and prior night excess EtOH intake ? sleep deprivation. EEG w/o IEDs/Sz. Plan and Recommendation: 1. Telemetry bed w/ Q4 hour neuro checks & Sz precautions 2. Labs: Serum/Urine Tox, UA/UCx, Electrolytes especially Na, Ca, Mg, and Glucose, TSH/Vit B12/Ammonia and correct as necessary 3. Cont Infectious work up/medical management for UTI, PNA, cellulitis, bacteremia, etc. 4. Avoid hyponatremia, hypo/hyper-calcemia, hypo/hyperglycemia, acidosis, hypoxia/hypoxemia, hypercarbia/hypercapnia 5. Avoid institution of any psychoactive medications (e.g. antihistamines, anticholinergics, BZD, hypnotics, opiates) as able unless low doses of low potency antipsychotic needed for behavioral issues complicating medical care 6. AED therapy: Cont LEV @ 750mg BID 7. Avoid meds that can lower sz threshold e.g. Tramadol, fluroquinolones, carbapenems 8. Given unknown EtOH Hx would supplement Thiamine, Folate and B12 9. Pt's advised of [place] driving regulations: report date of presumed Seizure /unexplained loss of consciousness/awareness spell to [facility], refrain from operating a motor vehicle for 6 months after this date, and avoid unsupervised activity particularly around water or heights 10. We can revisit as needed. 11. Outpt follow up @ [facility] to be arranged by family Subjective Date of service: 09/26/16 Principal diagnosis: cardiopulmonary PEA arrest; seizure d/o; AFib with RVR Interval history: off sedation, following commands Objective - Vital Sign Vital Signs - 12hr 09/26/16 09/26/16 09/26/16 00:00 00:01 01:00 Temperature 99.4 F Pulse Rate 89 79 Pulse Rate [ From Monitor] Respiratory 18 21 17 Rate Blood Pressure 126/75 137/82 O2 Sat by Pulse 97 96 96 Oximetry 09/26/16 09/26/16 09/26/16 01:57 02:00 03:00 Temperature Pulse Rate 84 83 85 Pulse Rate [ From Monitor] Respiratory 18 18 Rate Blood Pressure 133/83 125/90 135/91 O2 Sat by Pulse 96 97 Oximetry 09/26/16 09/26/16 09/26/16 03:28 04:00 04:36 Temperature 99.6 F Pulse Rate 68 85 Pulse Rate [ From Monitor] Respiratory 16 Rate Blood Pressure 124/88 134/83 O2 Sat by Pulse 96 97 Oximetry 09/26/16 09/26/16 09/26/16 05:00 06:00 06:21 Temperature Pulse Rate 72 91 H 82 Pulse Rate [ From Monitor] Respiratory 18 20 Rate Blood Pressure 147/84 153/119 130/94 O2 Sat by Pulse 97 98 Oximetry 09/26/16 09/26/16 09/26/16 07:00 08:00 08:21 Temperature 99.2 F Pulse Rate 85 76 74 Pulse Rate [ 76 From Monitor] Respiratory 16 14 Rate Blood Pressure 129/91 124/94 134/92 O2 Sat by Pulse 100 97 99 Oximetry 09/26/16 09/26/16 09/26/16 09:00 09:45 10:00 Temperature Pulse Rate 74 72 87 Pulse Rate [ From Monitor] Respiratory 16 13 Rate Blood Pressure 127/88 124/86 148/91 O2 Sat by Pulse 99 99 Oximetry 09/26/16 11:00 Temperature Pulse Rate 79 Pulse Rate [ From Monitor] Respiratory 18 Rate Blood Pressure 139/94 O2 Sat by Pulse 98 Oximetry - General Apperance Constitutional: acutely ill - EENT EENT: ATNC, PERRL, mucous membranes dry, hearing intact - Respiratory Respiratory: chest non-tender, normal breath sounds, no respiratory distress - Cardiovascular Cardiovascular: regular rate Extremities: no peripheral edema bilat, no clubbing, cyanosis, no inflammation, no ischemia or petechiae - Gastrointestinal Gastrointestinal: normoactive bowel sounds, soft, non-distended - Integumentary Integumentary: normal - Neurologic Cranial nerve examination: PERRL, V1/V2/V3 grossly intact, face symmetric, tongue midline, intact, intact shoulder shrug, intact cough reflex, Intact Vestibulo-ocular r, intact corneal reflex Speech examination: other (follows all commands) Detailed motor examination: grossly full strength in Motor examination - right side: 45: biceps, triceps, wrist flexion, wrist extension, coach driver, hip flexors, knee extensors, dorsiflexion, toe extension (EHL) , plantarflexion Motor examination - left side: 45: biceps, triceps, wrist flexion, wrist extension, coach driver, hip flexors, knee extensors, dorsiflexion, toe extension (EHL) , plantarflexion Detailed sensory examination: intact, light touch Reflex and gait examination: intact - Musculoskeletal Musculoskeletal: no fluid collection, no pain, normal range of motion - Psychiatric Psychiatric: mood/affect appropriate, cooperative - Laboratory Findings CBC and BMP: 09/26/16 05:32 09/26/16 05:32 Abnormal Lab Findings: Abnormal Labs 09/24/16 09/24/16 09/24/16 12:43 20:40 20:40 RBC RDW Lymph % (Auto) [place] % (Auto) Lymph # [place] # Seg Neutrophils % Seg Neutrophils # POC ABG pCO2 POC ABG pO2 Sodium Chloride Carbon Dioxide Glucose POC Glucose 130 H Lactic Acid 2.50 H* Calcium C-Reactive Protein 5.00 H 09/24/16 09/25/16 09/25/16 21:17 04:07 04:07 RBC 5.11 H RDW 16.7 H Lymph % (Auto) 9.0 L [place] % (Auto) 9.3 H Lymph # 0.9 L Leslie # 0.9 H Seg Neutrophils % 81.4 H Seg Neutrophils # 7.8 H POC ABG pCO2 32.9 L POC ABG pO2 111 H Sodium Chloride 108.1 H Carbon Dioxide 21 L D Glucose 118 H POC Glucose Lactic Acid Calcium 8.3 L C-Reactive Protein 09/26/16 09/26/16 09/26/16 03:45 05:32 05:32 RBC RDW 16.4 H Lymph % (Auto) [place] % (Auto) 8.4 H Lymph # [place] # Seg Neutrophils % 75.1 H Seg Neutrophils # POC ABG pCO2 POC ABG pO2 62 L Sodium 146 H Chloride 110.8 H Carbon Dioxide Glucose POC Glucose Lactic Acid Calcium C-Reactive Protein
[2016-09-26] MEDS: HCTZ PO SCH (12:42)
--- NOTE | 2016-09-26 13:16 | Progress Note ---
Assessment and Plan Assessment: S/p cardiopulmonary PEA arrest Acute respiratory failure - intubated Sepsis / lactic acidosis Chronic atrial fibrillation with RVR - NO CLINICAL NEUROPSYCHOLOGIST ANTICOAGULATION d/t h/o spontaneous subdural hematoma Seizure disorder - neurology following. 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 Cont PO cardizem, 60 Q8H, and PO lopressor, 50mg BID. Hold for HR <60 and SBP < 100. Cont supportive management. Assessment and plan reviewed [facility] pt's at beside. The patient has been seen in conjunction with Dr. Garrido who agrees with the assessment and plan of care. Subjective Date of service: 09/26/16 Principal diagnosis: cardiopulmonary PEA arrest; seizure d/o; AFib with RVR Interval history: Pt remains intubated, sedated. In AFib wit HR controlled in 70s, BPs stable. at bedside. Objective Last Vital Signs Temp 98.8 F 09/26/16 12:00 Pulse 89 09/26/16 13:04 Resp 18 09/26/16 11:00 BP 141/101 09/26/16 13:04 Pulse Ox 98 09/26/16 12:25 - Physical Examination General: Other (intubated, sedated ) HEENT: Positive: PERRL Neck: Positive: neck supple, trachea midline Cardiac: Positive: irregularly irregular, S1/S2 Lungs: Positive: Decreased Breath Sounds, Oxygen Neuro: Positive: Other (deferred; intubated and sedated) Abdomen: Positive: Soft, Active Bowel Sounds. Negative: Tender Skin: Positive: Clear. Negative: Rash, Wound Musculoskeletal: No Fluid Collection, No Pain, Normal Range of Motion Extremities: Present: upper extr. pulses, lower extr. pulses. Absent: edema - Labs and Meds CBC 09/26/16 Range/Units 05:32 WBC 7.8 (4.5-11.0) K/mm3 RBC 4.91 (3.65-5.03) M/mm3 Hgb 14.4 (11.8-15.2) gm/dl Hct 43.6 (35.5-45.6) % Plt Count 141 (140-440) K/mm3 Lymph # 1.2 (1.2-5.4) K/mm3 [place] # 0.7 (0.0-0.8) K/mm3 Eos # 0.1 (0.0-0.4) K/mm3 Baso # 0.0 (0.0-0.1) K/mm3 Comprehensive Metabolic Panel 09/26/16 Range/Units 05:32 Sodium 146 H (137-145) mmol/L Potassium 3.9 (3.6-5.0) mmol/L Chloride 110.8 H (98-107) mmol/L Carbon Dioxide 23 (22-30) mmol/L BUN 13 (9-20) mg/dL Creatinine 0.8 (0.8-1.5) mg/dL Glucose 93 (75-100) mg/dL Calcium 8.5 (8.4-10.2) mg/dL - Imaging and Cardiology EKG: report reviewed, image reviewed Echo: report reviewed (01/09/2016: mild LVH, EF 55%, mild TR, moderately dilated RA, RVSP 51.2mmHg, trivial pericardial effusion, circumferential ) - Telemetry EKG Rhythm: Atrial Fibrillation
--- NOTE | 2016-09-26 13:27 | Progress Note ---
Assessment and Plan - Patient Problems (1) Acute hypoxemic respiratory failure Current Visit: Yes Status: Acute Plan to address problem: - continue bronchodilators and pulmonary toilet - continue aspiration precautions / VAP bundles - increase Peep to 8 and wean FiO2 for sats > 94% - continue bronchodilators and pulmonary toilet (2) Sepsis syndrome Current Visit: Yes Status: Acute Plan to address problem: - follow off AB's (3) Atrial fibrillation with RVR Current Visit: Yes Status: Acute Plan to address problem: - continue rate control with cardizem - cardiology evaluation ongoing - follow 2D ECHO (4) Oropharyngeal dysphagia Current Visit: Yes Status: Acute Plan to address problem: - tolerating tube feeds well so far (5) Seizure disorder Current Visit: Yes Status: Acute Plan to address problem: - remains on Keppra - neurology evaluation ongoing (6) Discharge planning issues Current Visit: Yes Status: Acute Plan to address problem: ...care plan discussed with at bedside ....he remains critically ill on life sustaining interventions including MVS and at risk for further deterioration including ..35' CCT Subjective Date of service: 09/26/16 Principal diagnosis: cardiopulmonary PEA arrest; seizure d/o; AFib with RVR Interval history: seen and examined at bedside; 24 hour events reviewed; nursing and respiratory care staff consulted; no adverse overnight veents reported to me; resting peacefully in bed; on sedation vacation currently; s/p 2D ECHO this am (report pending); no emesis or overt aspiration Objective Vital Signs - 12hr 09/26/16 09/26/16 09/26/16 01:57 02:00 03:00 Temperature Pulse Rate 84 83 85 Pulse Rate [ From Monitor] Respiratory 18 18 Rate Blood Pressure 133/83 125/90 135/91 O2 Sat by Pulse 96 97 Oximetry 09/26/16 09/26/16 09/26/16 03:28 04:00 04:36 Temperature 99.6 F Pulse Rate 68 85 Pulse Rate [ From Monitor] Respiratory 16 Rate Blood Pressure 124/88 134/83 O2 Sat by Pulse 96 97 Oximetry 09/26/16 09/26/16 09/26/16 05:00 06:00 06:21 Temperature Pulse Rate 72 91 H 82 Pulse Rate [ From Monitor] Respiratory 18 20 Rate Blood Pressure 147/84 153/119 130/94 O2 Sat by Pulse 97 98 Oximetry 09/26/16 09/26/16 09/26/16 07:00 08:00 08:21 Temperature 99.2 F Pulse Rate 85 76 74 Pulse Rate [ 76 From Monitor] Respiratory 16 14 Rate Blood Pressure 129/91 124/94 134/92 O2 Sat by Pulse 100 97 99 Oximetry 09/26/16 09/26/16 09/26/16 09:00 09:45 10:00 Temperature Pulse Rate 74 72 87 Pulse Rate [ From Monitor] Respiratory 16 13 Rate Blood Pressure 127/88 124/86 148/91 O2 Sat by Pulse 99 99 Oximetry 09/26/16 09/26/16 09/26/16 11:00 12:00 12:25 Temperature 98.8 F Pulse Rate 79 80 Pulse Rate [ From Monitor] Respiratory 18 Rate Blood Pressure 139/94 140/100 O2 Sat by Pulse 98 98 Oximetry 09/26/16 13:04 Temperature Pulse Rate 89 Pulse Rate [ From Monitor] Respiratory Rate Blood Pressure 141/101 O2 Sat by Pulse Oximetry Constitutional: no acute distress, other (somnolent) Eyes: non-icteric ENT: oropharynx moist Neck: supple, no lymphadenopathy Effort: mildly labored Ascultation: Bilateral: diminished breath sounds, rales Cardiovascular: regular rate and rhythm Gastrointestinal: normoactive bowel sounds, soft, non-tender, non-distended Integumentary: normal Extremities: no cyanosis, no edema, pink and warm, pulses normal, no ischemia or petechiae Neurologic: unable to assess Psychiatric: other (sedated) CBC and BMP: 09/26/16 05:32 09/26/16 05:32 ABG, PT/INR, D-dimer: ABG POC ABG pH 7.439 (7.35-7.45) 09/26/16 03:45 POC ABG pCO2 36.7 (35-45) 09/26/16 03:45 POC ABG pO2 62 (80-105) L 09/26/16 03:45 POC ABG HCO3 24.9 09/26/16 03:45 POC ABG Total CO2 26 09/26/16 03:45 POC ABG O2 Sat 92 09/26/16 03:45 Abnormal lab findings: Abnormal Labs 09/24/16 09/24/16 09/24/16 12:43 20:40 20:40 RBC RDW Lymph % (Auto) [place] % (Auto) Lymph # [place] # Seg Neutrophils % Seg Neutrophils # POC ABG pCO2 POC ABG pO2 Sodium Chloride Carbon Dioxide Glucose POC Glucose 130 H Lactic Acid 2.50 H* Calcium C-Reactive Protein 5.00 H 09/24/16 09/25/16 09/25/16 21:17 04:07 04:07 RBC 5.11 H RDW 16.7 H Lymph % (Auto) 9.0 L [place] % (Auto) 9.3 H Lymph # 0.9 L [place] # 0.9 H Seg Neutrophils % 81.4 H Seg Neutrophils # 7.8 H POC ABG pCO2 32.9 L POC ABG pO2 111 H Sodium Chloride 108.1 H Carbon Dioxide 21 L D Glucose 118 H POC Glucose Lactic Acid Calcium 8.3 L C-Reactive Protein 09/26/16 09/26/16 09/26/16 03:45 05:32 05:32 RBC RDW 16.4 H Lymph % (Auto) [place] % (Auto) 8.4 H Lymph # [place] # Seg Neutrophils % 75.1 H Seg Neutrophils # POC ABG pCO2 POC ABG pO2 62 L Sodium 146 H Chloride 110.8 H Carbon Dioxide Glucose POC Glucose Lactic Acid Calcium C-Reactive Protein
[2016-09-26] MEDS: ATIVAN IV PRN ×2 (16:13→20:33)
--- NOTE | 2016-09-26 17:04 | XRay Report ---
FINAL REPORT EXAM: XR ABDOMEN 1V AP HISTORY: Dobhoff placement TECHNIQUE: AP abdominal radiograph. PRIORS: None. FINDINGS: The enteric tube tip projects in the right upper quadrant, likely in the proximal duodenum. No bowel obstruction. No organomegaly or masses. No abnormal calcifications. No acute osseous abnormality. IMPRESSION: Enteric tube tip likely lying in the proximal duodenum.
[2016-09-26] MEDS: KEPPRA PO SCH (22:09)
[2016-09-26] MEDS: MIDAZOLAM 100 MG in NACL 0.9% 80 ML IV SCH (22:33)
[2016-09-27 05:46] LABS: ISTAT Base Excess 2; ISTAT HCO3 26.3; ISTAT PCO2 39.2 (35-45); ISTAT PH 7.435 (7.35-7.45); ISTAT PO2 93 (80-105); ISTAT SO2 97; ISTAT TCO2 27
[2016-09-27 05:50] LABS: Basophils % (Auto) 0.7 % (0.0-1.8); Eosinophils % (Auto) 1.7 % (0.0-4.3); Hematocrit 42.6 % (35.5-45.6); Hemoglobin 14.5 gm/dl (11.8-15.2); Mean Corpuscular HGB Conc 34 % (32-34); Mean Corpuscular Hemoglobin 30 pg (28-32); Mean Corpuscular Volume 87 fl (84-94); Platelet Count 134 K/mm3 (140-440); Red Blood Count 4.88 M/mm3 (3.65-5.03); White Blood Count 6.4 K/mm3 (4.5-11.0)
[2016-09-27 06:09] LABS: Anion Gap 18 mmol/L; BUN/Creatinine Ratio 18.75; Blood Urea Nitrogen 15 mg/dL (9-20); Calcium 8.8 mg/dL (8.4-10.2); Carbon Dioxide 22 mmol/L (22-30); Chloride 109.5 mmol/L (98-107); Glucose 95 mg/dL (75-100); Potassium 3.6 mmol/L (3.6-5.0); Sodium 146 mmol/L (137-145)
[2016-09-27] MEDS: CARDIZEM PO SCH ×3 (06:19→23:12)
--- NOTE | 2016-09-27 09:02 | XRay Report ---
AP CHEST :09/27/16 CLINICAL: Intubated.Follow up respiratory failure. COMPARISON:The previous day. FINDINGS: The endotracheal tube is in satisfactory position. The feeding tube is satisfactory. Continued cardiomegaly. Minimal central vascular congestion. Low lung lines. Some clearing of the left lung base since the last exam. No pneumothorax. IMPRESSION: Cardiomegaly but no CHF.
--- NOTE | 2016-09-27 09:43 | Progress Note ---
Assessment and Plan Assessment and plan: Sepsis. Continue IV antibiotics Continue to follow blood, sputum and urine cultures. Continue IV fluid hydration. Trend lactic acid levels. Acute hypoxic respiratory failure. Patient currently intubated on mechanical ventilation. Patient will likely be extubated today. Pulmonary following. Acute encephalopathy. CT scan of the head is negative. Patient will need an MRI/MRA when more stable. Neurology following. EEG reveals no epileptiform abnormalities, focal or lateralizing features or interhemispheric findings. Atrial fibrillation with RVR. Diltiazem drip discontinued. Continue by mouth diltiazem. Cardiology following. No long-term anticoagulation due to history of spontaneous subdural hematoma. Continue IV Lopressor every 6 hours History DVT/PE. No anticoagulation. Seizure disorder. Continue Keppra 750 mg twice a day. Ativan for breakthrough seizures. Seizure precautions. Neurology consultation. 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 Continue antihypertensives medications. History Interval history: No new issues overnight. Patient remains intubated and sedated. However, patient does respond to simple commands. at bedside. All questions answered. Hospitalist Physical - Constitutional Vitals: Temp Pulse Resp BP Pulse Ox 98.7 F 79 23 143/89 94 09/27/16 08:00 09/27/16 08:00 09/27/16 08:00 09/27/16 08:00 09/27/16 08:00 General appearance: Present: other (intubated, sedated) - EENT Eyes: Present: PERRL, EOM intact ENT: hearing intact, clear oral mucosa, dentition normal - Neck Neck: Present: supple, normal ROM - Respiratory Respiratory effort: normal Respiratory: bilateral: CTA - Cardiovascular Rhythm: regular Heart Sounds: Present: S1 & S2. Absent: gallop, rub - Extremities Extremities: no ischemia, No edema, Full ROM - Abdominal General gastrointestinal: soft, non-tender, non-distended, normal bowel sounds - Integumentary Integumentary: Present: clear, warm, dry - Neurologic Neurologic: CNII-XII intact, moves all extremities Results - Labs CBC & Chem 7: 09/27/16 05:26 09/27/16 05:26 Labs: Laboratory Last Values WBC 6.4 K/mm3 (4.5-11.0) 09/27/16 05:26 RBC 4.88 M/mm3 (3.65-5.03) 09/27/16 05:26 Hgb 14.5 gm/dl (11.8-15.2) 09/27/16 05:26 Hct 42.6 % (35.5-45.6) 09/27/16 05:26 MCV 87 fl (84-94) 09/27/16 05:26 MCH 30 pg (28-32) 09/27/16 05:26 MCHC 34 % (32-34) 09/27/16 05:26 RDW 16.0 % (13.2-15.2) H 09/27/16 05:26 Plt Count 134 K/mm3 (140-440) L 09/27/16 05:26 Lymph % (Auto) 18.1 % (13.4-35.0) 09/27/16 05:26 [place] % (Auto) 7.2 % (0.0-7.3) 09/27/16 05:26 Eos % (Auto) 1.7 % (0.0-4.3) 09/27/16 05:26 Baso % (Auto) 0.7 % (0.0-1.8) 09/27/16 05:26 Lymph # 1.2 K/mm3 (1.2-5.4) 09/27/16 05:26 [place] # 0.5 K/mm3 (0.0-0.8) 09/27/16 05:26 Eos # 0.1 K/mm3 (0.0-0.4) 09/27/16 05:26 Baso # 0.0 K/mm3 (0.0-0.1) 09/27/16 05:26 Add Manual Diff Complete 09/24/16 08:36 Total Counted 100 09/24/16 08:36 Seg Neutrophils % 72.3 % (40.0-70.0) H 09/27/16 05:26 Seg Neuts % (Manual) 65.0 % (40.0-70.0) 09/24/16 08:36 Band Neutrophils % 3.0 % 09/24/16 08:36 Lymphocytes % (Manual) 20.0 % (13.4-35.0) 09/24/16 08:36 Reactive Lymphs % (Man) 0 % 09/24/16 08:36 Monocytes % (Manual) 8.0 % (0.0-7.3) H 09/24/16 08:36 Eosinophils % (Manual) 3.0 % (0.0-4.3) 09/24/16 08:36 Basophils % (Manual) 1.0 % (0.0-1.8) 09/24/16 08:36 Metamyelocytes % 0 % 09/24/16 08:36 Myelocytes % 0 % 09/24/16 08:36 Promyelocytes % 0 % 09/24/16 08:36 Blast Cells % 0 % 09/24/16 08:36 Nucleated RBC % Not Reportable 09/24/16 08:36 Seg Neutrophils # 4.6 K/mm3 (1.8-7.7) 09/27/16 05:26 Seg Neutrophils # Man 9.4 K/mm3 (1.8-7.7) H 09/24/16 08:36 Band Neutrophils # 0.4 K/mm3 09/24/16 08:36 Lymphocytes # (Manual) 2.9 K/mm3 (1.2-5.4) 09/24/16 08:36 Abs React Lymphs (Man) 0.0 K/mm3 09/24/16 08:36 Monocytes # (Manual) 1.2 K/mm3 (0.0-0.8) H 09/24/16 08:36 Eosinophils # (Manual) 0.4 K/mm3 (0.0-0.4) 09/24/16 08:36 Basophils # (Manual) 0.1 K/mm3 (0.0-0.1) 09/24/16 08:36 Metamyelocytes # 0.0 K/mm3 09/24/16 08:36 Myelocytes # 0.0 K/mm3 09/24/16 08:36 Promyelocytes # 0.0 K/mm3 09/24/16 08:36 Blast Cells # 0.0 K/mm3 09/24/16 08:36 WBC Morphology Not Reportable 09/24/16 08:36 Hypersegmented Neuts Not Reportable 09/24/16 08:36 Hyposegmented Neuts Not Reportable 09/24/16 08:36 Hypogranular Neuts Not Reportable 09/24/16 08:36 Smudge Cells Not Reportable 09/24/16 08:36 Toxic Granulation Not Reportable 09/24/16 08:36 Toxic Vacuolation Not Reportable 09/24/16 08:36 Dohle Bodies Not Reportable 09/24/16 08:36 Pelger-Huet Anomaly Not Reportable 09/24/16 08:36 Ben Rods Not Reportable 09/24/16 08:36 Platelet Estimate Appears normal 09/24/16 08:36 Clumped Platelets Not Reportable 09/24/16 08:36 Plt Clumps, EDTA Not Reportable 09/24/16 08:36 Large Platelets Not Reportable 09/24/16 08:36 Giant Platelets Not Reportable 09/24/16 08:36 Platelet Satelliting Not Reportable 09/24/16 08:36 Plt Morphology Comment Not Reportable 09/24/16 08:36 RBC Morphology Normal 09/24/16 08:36 Dimorphic RBCs Not Reportable 09/24/16 08:36 Polychromasia Not Reportable 09/24/16 08:36 Hypochromasia Not Reportable 09/24/16 08:36 Poikilocytosis Not Reportable 09/24/16 08:36 Anisocytosis Not Reportable 09/24/16 08:36 Microcytosis Not Reportable 09/24/16 08:36 Macrocytosis Not Reportable 09/24/16 08:36 Spherocytes Not Reportable 09/24/16 08:36 Pappenheimer Bodies Not Reportable 09/24/16 08:36 Sickle Cells Not Reportable 09/24/16 08:36 Target Cells Not Reportable 09/24/16 08:36 Tear Drop Cells Not Reportable 09/24/16 08:36 Ovalocytes Not Reportable 09/24/16 08:36 Helmet Cells Not Reportable 09/24/16 08:36 [place] Bodies Not Reportable 09/24/16 08:36 [place] Rings Not Reportable 09/24/16 08:36 [place] Cells Not Reportable 09/24/16 08:36 Bite Cells Not Reportable 09/24/16 08:36 Crenated Cell Not Reportable 09/24/16 08:36 Elliptocytes Not Reportable 09/24/16 08:36 Acanthocytes (Spur) Not Reportable 09/24/16 08:36 Rouleaux Not Reportable 09/24/16 08:36 Hemoglobin C Crystals Not Reportable 09/24/16 08:36 Schistocytes Not Reportable 09/24/16 08:36 Malaria parasites Not Reportable 09/24/16 08:36 Sivakumar Bodies Not Reportable 09/24/16 08:36 Hem Pathologist Commnt No 09/24/16 08:36 POC ABG pH 7.435 (7.35-7.45) 09/27/16 05:03 POC ABG pCO2 39.2 (35-45) 09/27/16 05:03 POC ABG pO2 93 (80-105) 09/27/16 05:03 POC ABG HCO3 26.3 09/27/16 05:03 POC ABG Total CO2 27 09/27/16 05:03 POC ABG O2 Sat 97 09/27/16 05:03 POC ABG Base Excess 2 09/27/16 05:03 FiO2 40 % 09/27/16 05:03 Sodium 146 mmol/L (137-145) H 09/27/16 05:26 Potassium 3.6 mmol/L (3.6-5.0) 09/27/16 05:26 Chloride 109.5 mmol/L (98-107) H 09/27/16 05:26 Carbon Dioxide 22 mmol/L (22-30) 09/27/16 05:26 Anion Gap 18 mmol/L 09/27/16 05:26 BUN 15 mg/dL (9-20) 09/27/16 05:26 Creatinine 0.8 mg/dL (0.8-1.5) 09/27/16 05:26 Estimated GFR > 60 ml/min 09/27/16 05:26 BUN/Creatinine Ratio 18.75 % 09/27/16 05:26 Glucose 95 mg/dL (75-100) 09/27/16 05:26 POC Glucose 82 (70-105) 09/26/16 17:28 Lactic Acid 1.90 mmol/L (0.7-2.0) 09/24/16 23:11 Calcium 8.8 mg/dL (8.4-10.2) 09/27/16 05:26 Magnesium 2.20 mg/dL (1.7-2.3) 09/24/16 08:45 Total Bilirubin 0.40 mg/dL (0.1-1.2) 09/24/16 08:45 AST 49 units/L (5-40) H 09/24/16 08:45 ALT 56 units/L (7-56) 09/24/16 08:45 Alkaline Phosphatase 82 units/L (35-129) 09/24/16 08:45 Troponin T < 0.010 ng/mL (0.00-0.029) 09/24/16 23:11 C-Reactive Protein 5.00 mg/dL (0.00-1.30) H 09/24/16 20:40 Total Protein 7.6 g/dL (6.3-8.2) 09/24/16 08:45 Albumin 4.3 g/dL (3.9-5) 09/24/16 08:45 Albumin/Globulin Ratio 1.3 % 09/24/16 08:45 TSH 5.740 mlU/mL (0.270-4.200) H 09/24/16 08:36 Urine Color Yellow (Yellow) 09/24/16 09:01 Urine Turbidity Cloudy (Clear) 09/24/16 09:01 Urine pH 5.0 (5.0-7.0) 09/24/16 09:01 Ur Specific [place] 1.013 (1.003-1.030) 09/24/16 09:01 Urine Protein >500 mg/dL (Negative) 09/24/16 09:01 Urine Glucose (UA) 50 mg/dL (Negative) 09/24/16 09:01 Urine Ketones Neg mg/dL (Negative) 09/24/16 09:01 Urine Blood Sm (Negative) 09/24/16 09:01 Urine Nitrite Neg (Negative) 09/24/16 09:01 Urine Bilirubin Neg (Negative) 09/24/16 09:01 Urine Urobilinogen < 2.0 mg/dL (<2.0) 09/24/16 09:01 Ur Leukocyte Esterase Neg (Negative) 09/24/16 09:01 Urine WBC (Auto) 13.0 /HPF (0.0-6.0) H 09/24/16 09:01 Urine RBC (Auto) 10.0 /HPF (0.0-6.0) 09/24/16 09:01 Urine Bacteria (Auto) 4+ /HPF (Negative) 09/24/16 09:01 Salicylates < 0.3 mg/dL (2.8-20.0) L 09/24/16 08:45 Urine Opiates Screen Presumptive negative 09/24/16 09:01 Urine Methadone Screen Presumptive negative 09/24/16 09:01 Acetaminophen < 15.0 ug/mL (10.0-30.0) 09/24/16 08:45 Ur Barbiturates Screen Presumptive negative 09/24/16 09:01 Ur Phencyclidine Scrn Presumptive negative 09/24/16 09:01 Ur Amphetamines Screen Presumptive negative 09/24/16 09:01 U Benzodiazepines Scrn Presumptive negative 09/24/16 09:01 Urine Cocaine Screen Presumptive negative 09/24/16 09:01 U Marijuana (THC) Screen Presumptive negative 09/24/16 09:01 Drugs of Abuse Note Disclamer 09/24/16 09:01 Plasma/Serum Alcohol < 0.01 gm% (0-0.07) 09/24/16 08:36 Blood Type A NEGATIVE 09/24/16 08:43 Antibody Screen TNR 09/24/16 08:43 AMOR Antibody Screen Negative 09/24/16 08:43
[2016-09-27] MEDS: KEPPRA PO SCH (09:56)
[2016-09-27] MEDS: LOVENOX SUB-Q SCH (09:56)
[2016-09-27] MEDS: FOLVITE PO SCH (09:56)
[2016-09-27] MEDS: PEPCID PO SCH ×2 (09:56→22:00)
[2016-09-27] MEDS: LOPRESSOR PO SCH ×2 (09:57→23:12)
[2016-09-27] MEDS: VITAMIN B-1 PO SCH (09:57)
[2016-09-27] MEDS: THERAGRAN Tab PO SCH (09:57)
[2016-09-27] MEDS: FLOMAX PO SCH (09:57)
[2016-09-27] MEDS: HCTZ PO SCH (09:58)
--- NOTE | 2016-09-27 11:18 | Progress Note ---
Assessment and Plan - Patient Problems (1) Acute hypoxemic respiratory failure Current Visit: Yes Status: Acute Plan to address problem: - continue bronchodilators and pulmonary toilet - continue aspiration precautions / VAP bundles - keep Peep at 8 and wean FiO2 for sats > 94% - continue bronchodilators and pulmonary toilet - trial of extubation to BIPAP (2) Sepsis syndrome Current Visit: Yes Status: Acute Plan to address problem: - follow off AB's (3) Atrial fibrillation with RVR Current Visit: Yes Status: Acute Plan to address problem: - continue rate control with cardizem - cardiology evaluation ongoing - follow 2D ECHO (4) Oropharyngeal dysphagia Current Visit: Yes Status: Acute Plan to address problem: - tolerating tube feeds well so far (5) Seizure disorder Current Visit: Yes Status: Acute Plan to address problem: - remains on Keppra - neurology evaluation ongoing (6) Discharge planning issues Current Visit: Yes Status: Acute Plan to address problem: ...care plan discussed with at bedside ....he remains critically ill on life sustaining interventions including MVS and at risk for further deterioration including ..31' CCT Subjective Date of service: 09/27/16 Principal diagnosis: cardiopulmonary PEA arrest; seizure d/o; AFib with RVR Interval history: Seen and examined at bedside; 24 hour events reviewed; nursing and respiratory care staff consulted; no adverse overnight events reported to me; tolerated weaning trial decently today and will give him a trial of extubation; denies acute chest pains; No N/V/F/C Objective Vital Signs - 12hr 09/26/16 09/26/16 09/27/16 23:48 23:54 00:00 Temperature 99.8 F H Pulse Rate 74 79 Pulse Rate [ 82 From Monitor] Pulse Rate [ Right Dorsalis Pedis] Respiratory 18 16 17 Rate Blood Pressure 128/85 130/85 O2 Sat by Pulse 95 95 96 Oximetry 09/27/16 09/27/16 09/27/16 00:03 01:00 02:00 Temperature 99.8 F H Pulse Rate 76 78 Pulse Rate [ From Monitor] Pulse Rate [ Right Dorsalis Pedis] Respiratory 18 17 Rate Blood Pressure 141/92 142/93 O2 Sat by Pulse 97 97 Oximetry 09/27/16 09/27/16 09/27/16 03:00 04:00 04:15 Temperature 100.1 F H Pulse Rate 81 82 Pulse Rate [ From Monitor] Pulse Rate [ 84 Right Dorsalis Pedis] Respiratory 16 16 16 Rate Blood Pressure 150/96 140/96 O2 Sat by Pulse 96 97 94 Oximetry 09/27/16 09/27/16 09/27/16 04:39 04:51 05:00 Temperature 100.1 F H Pulse Rate 84 76 Pulse Rate [ From Monitor] Pulse Rate [ Right Dorsalis Pedis] Respiratory 16 Rate Blood Pressure 140/96 134/91 O2 Sat by Pulse 99 97 Oximetry 09/27/16 09/27/16 09/27/16 06:00 06:19 07:00 Temperature Pulse Rate 82 78 73 Pulse Rate [ From Monitor] Pulse Rate [ Right Dorsalis Pedis] Respiratory 16 16 Rate Blood Pressure 146/98 128/83 O2 Sat by Pulse 96 95 Oximetry 09/27/16 09/27/16 09/27/16 08:00 09:00 09:05 Temperature 98.7 F Pulse Rate 79 90 84 Pulse Rate [ From Monitor] Pulse Rate [ Right Dorsalis Pedis] Respiratory 23 22 Rate Blood Pressure 143/89 145/121 163/113 O2 Sat by Pulse 94 97 99 Oximetry 09/27/16 09/27/16 09:57 10:00 Temperature Pulse Rate 80 94 H Pulse Rate [ From Monitor] Pulse Rate [ Right Dorsalis Pedis] Respiratory 18 Rate Blood Pressure 145/121 163/113 O2 Sat by Pulse 95 Oximetry Constitutional: no acute distress, other (somnolent) Eyes: non-icteric ENT: oropharynx moist Neck: supple, no lymphadenopathy Effort: mildly labored Ascultation: Bilateral: diminished breath sounds, rales Cardiovascular: regular rate and rhythm Gastrointestinal: normoactive bowel sounds, soft, non-tender, non-distended Integumentary: normal Extremities: no cyanosis, no edema, pink and warm, pulses normal, no ischemia or petechiae Neurologic: unable to assess Psychiatric: other (sedated) CBC and BMP: 09/28/16 03:55 09/28/16 03:55 ABG, PT/INR, D-dimer: ABG POC ABG pH 7.435 (7.35-7.45) 09/27/16 05:03 POC ABG pCO2 39.2 (35-45) 09/27/16 05:03 POC ABG pO2 93 (80-105) 09/27/16 05:03 POC ABG HCO3 26.3 09/27/16 05:03 POC ABG Total CO2 27 09/27/16 05:03 POC ABG O2 Sat 97 09/27/16 05:03 Abnormal lab findings: Abnormal Labs 09/24/16 09/24/16 09/24/16 12:43 20:40 20:40 RBC RDW Plt Count Lymph % (Auto) [place] % (Auto) Lymph # [place] # Seg Neutrophils % Seg Neutrophils # POC ABG pCO2 POC ABG pO2 Sodium Chloride Carbon Dioxide Glucose POC Glucose 130 H Lactic Acid 2.50 H* Calcium C-Reactive Protein 5.00 H 09/24/16 09/25/16 09/25/16 21:17 04:07 04:07 RBC 5.11 H RDW 16.7 H Plt Count Lymph % (Auto) 9.0 L [place] % (Auto) 9.3 H Lymph # 0.9 L [place] # 0.9 H Seg Neutrophils % 81.4 H Seg Neutrophils # 7.8 H POC ABG pCO2 32.9 L POC ABG pO2 111 H Sodium Chloride 108.1 H Carbon Dioxide 21 L D Glucose 118 H POC Glucose Lactic Acid Calcium 8.3 L C-Reactive Protein 09/26/16 09/26/16 09/26/16 03:45 05:32 05:32 RBC RDW 16.4 H Plt Count Lymph % (Auto) [place] % (Auto) 8.4 H Lymph # [place] # Seg Neutrophils % 75.1 H Seg Neutrophils # POC ABG pCO2 POC ABG pO2 62 L Sodium 146 H Chloride 110.8 H Carbon Dioxide Glucose POC Glucose Lactic Acid Calcium C-Reactive Protein 09/27/16 09/27/16 05:26 05:26 RBC RDW 16.0 H Plt Count 134 L Lymph % (Auto) [place] % (Auto) Lymph # [place] # Seg Neutrophils % 72.3 H Seg Neutrophils # POC ABG pCO2 POC ABG pO2 Sodium 146 H Chloride 109.5 H Carbon Dioxide Glucose POC Glucose Lactic Acid Calcium C-Reactive Protein
[2016-09-27 12:15] LABS: ISTAT Base Excess 0; ISTAT HCO3 26.2; ISTAT PCO2 52.1 (35-45); ISTAT PH 7.309 (7.35-7.45); ISTAT PO2 90 (80-105); ISTAT SO2 96; ISTAT TCO2 28
--- NOTE | 2016-09-27 13:10 | Progress Note ---
Assessment and Plan Assessment: S/p cardiopulmonary PEA arrest Acute respiratory failure - intubated Sepsis / lactic acidosis Chronic atrial fibrillation with RVR - NO THEATRICAL RIGGER ANTICOAGULATION d/t h/o spontaneous subdural hematoma Seizure disorder - neurology following. 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 Cont PO cardizem, 60 Q8H, and PO lopressor, 50mg BID. Hold for HR <60 and SBP < 100. Cont supportive management. Assessment and plan reviewed with pt's family at beside. The patient has been seen in conjunction with Dr. Garrido who agrees with the assessment and plan of care. Subjective Date of service: 09/27/16 Principal diagnosis: cardiopulmonary PEA arrest; seizure d/o; AFib with RVR Interval history: Pt remains intubated, sedation weaned and pt is following commands appropriately. On CPAP trial. In AFib wit HR controlled in 70s, BPs stable. Daughter and at bedside. Objective Last Vital Signs Temp 98.9 F 09/27/16 12:00 Pulse 80 09/27/16 10:00 Resp 18 09/27/16 10:00 BP 163/113 09/27/16 10:00 Pulse Ox 95 09/27/16 10:00 - Physical Examination General: Other (intubated, responding appropriately to commands ) HEENT: Positive: PERRL Neck: Positive: neck supple, trachea midline Cardiac: Positive: irregularly irregular, S1/S2 Lungs: Positive: Decreased Breath Sounds, Ventilated Respirations Neuro: Positive: Grossly Intact Abdomen: Positive: Soft, Active Bowel Sounds. Negative: Tender Skin: Positive: Clear. Negative: Rash, Wound Musculoskeletal: No Fluid Collection, No Pain, Normal Range of Motion Extremities: Present: upper extr. pulses, lower extr. pulses. Absent: edema - Labs and Meds CBC 09/27/16 Range/Units 05:26 WBC 6.4 (4.5-11.0) K/mm3 RBC 4.88 (3.65-5.03) M/mm3 Hgb 14.5 (11.8-15.2) gm/dl Hct 42.6 (35.5-45.6) % Plt Count 134 L (140-440) K/mm3 Lymph # 1.2 (1.2-5.4) K/mm3 [place] # 0.5 (0.0-0.8) K/mm3 Eos # 0.1 (0.0-0.4) K/mm3 Baso # 0.0 (0.0-0.1) K/mm3 Comprehensive Metabolic Panel 09/27/16 Range/Units 05:26 Sodium 146 H (137-145) mmol/L Potassium 3.6 (3.6-5.0) mmol/L Chloride 109.5 H (98-107) mmol/L Carbon Dioxide 22 (22-30) mmol/L BUN 15 (9-20) mg/dL Creatinine 0.8 (0.8-1.5) mg/dL Glucose 95 (75-100) mg/dL Calcium 8.8 (8.4-10.2) mg/dL - Imaging and Cardiology EKG: report reviewed, image reviewed Echo: report reviewed (01/09/2016: mild LVH, EF 55%, mild TR, moderately dilated RA, RVSP 51.2mmHg, trivial pericardial effusion, circumferential ) - Telemetry EKG Rhythm: Atrial Fibrillation
[2016-09-27] MEDS ORDERED: LOPRESSOR IV ONE (21:24)
[2016-09-27] MEDS: KEPPRA 750 MG in D5W 100 ML IV SCH (22:24)
[2016-09-28 04:39] LABS: Basophils % (Auto) 0.5 % (0.0-1.8); Eosinophils % (Auto) 2.4 % (0.0-4.3); Mean Corpuscular HGB Conc 34 % (32-34); Mean Corpuscular Hemoglobin 30 pg (28-32); Mean Corpuscular Volume 87 fl (84-94); Platelet Count 149 K/mm3 (140-440); Red Blood Count 5.05 M/mm3 (3.65-5.03); Red Cell Distribution Width 15.3 % (13.2-15.2); White Blood Count 7.2 K/mm3 (4.5-11.0)
[2016-09-28 04:53] LABS: Anion Gap 23 mmol/L; Blood Urea Nitrogen 14 mg/dL (9-20); Calcium 8.9 mg/dL (8.4-10.2); Carbon Dioxide 23 mmol/L (22-30); Chloride 101.9 mmol/L (98-107); Glucose 85 mg/dL (75-100); Potassium 3.4 mmol/L (3.6-5.0); Sodium 144 mmol/L (137-145)
[2016-09-28] MEDS: CARDIZEM PO SCH (06:26)
--- NOTE | 2016-09-28 07:36 | XRay Report ---
Single view chest: History: Followup ORIF or failure. Findings: Cardiomegaly. Trachea is midline. No consolidation, pneumothorax or pleural effusion. Impression: No significant interval change.
[2016-09-28] MEDS ORDERED: POTASSIUM CHLORIDE FEEDTUBE ONE (09:19)
[2016-09-28] MEDS ORDERED: APRESOLINE IV PRN (09:23)
--- NOTE | 2016-09-28 10:11 | Progress Note ---
Assessment and Plan Assessment: S/p cardiopulmonary PEA arrest Acute respiratory failure - extubated Sepsis / lactic acidosis Chronic atrial fibrillation with RVR - NO RECREATION COORDINATOR ANTICOAGULATION d/t h/o spontaneous subdural hematoma Seizure disorder - neurology following. 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 Convert PO cardizem and Lopressor to IV. Resume PO cardizem, 60 Q8H, and PO lopressor, 50mg BID once PO intake is resumed. For swallow eval today. Assessment and plan reviewed with pt's family at beside. The patient has been seen in conjunction with Dr. Garrido who agrees with the assessment and plan of care. Subjective Date of service: 09/28/16 Principal diagnosis: cardiopulmonary PEA arrest; seizure d/o; AFib with RVR Interval history: Pt extubated yesterday evening. A&O, no complaints. at bedside. had bout of AFib with RVR overnight, also with hypertension. pt has not resumed PO intake yet and DHT was discontinued. Objective Last Vital Signs Temp 98.5 F 09/28/16 08:00 Pulse 92 H 09/28/16 09:00 Resp 16 09/28/16 09:00 BP 160/119 09/28/16 09:00 Pulse Ox 97 09/28/16 09:00 - Physical Examination General: No Apparent Distress HEENT: Positive: PERRL Neck: Positive: neck supple, trachea midline Cardiac: Positive: irregularly irregular, S1/S2 Lungs: Positive: Decreased Breath Sounds Neuro: Positive: Grossly Intact, Cranial Nerve 2-12 Intact Abdomen: Positive: Soft, Active Bowel Sounds. Negative: Tender Skin: Positive: Clear. Negative: Rash, Wound Musculoskeletal: No Fluid Collection, No Pain, Normal Range of Motion Extremities: Present: upper extr. pulses, lower extr. pulses. Absent: edema - Labs and Meds CBC 09/28/16 Range/Units 03:55 WBC 7.2 (4.5-11.0) K/mm3 RBC 5.05 H (3.65-5.03) M/mm3 Hgb 15.0 (11.8-15.2) gm/dl Hct 44.0 (35.5-45.6) % Plt Count 149 (140-440) K/mm3 Lymph # 1.1 L (1.2-5.4) K/mm3 [place] # 0.7 (0.0-0.8) K/mm3 Eos # 0.2 (0.0-0.4) K/mm3 Baso # 0.0 (0.0-0.1) K/mm3 Comprehensive Metabolic Panel 09/28/16 Range/Units 03:55 Sodium 144 (137-145) mmol/L Potassium 3.4 L (3.6-5.0) mmol/L Chloride 101.9 (98-107) mmol/L Carbon Dioxide 23 (22-30) mmol/L BUN 14 (9-20) mg/dL Creatinine 0.8 (0.8-1.5) mg/dL Glucose 85 (75-100) mg/dL Calcium 8.9 (8.4-10.2) mg/dL - Imaging and Cardiology EKG: report reviewed, image reviewed Echo: report reviewed (01/09/2016: mild LVH, EF 55%, mild TR, moderately dilated RA, RVSP 51.2mmHg, trivial pericardial effusion, circumferential ) - Telemetry EKG Rhythm: Atrial Fibrillation
--- NOTE | 2016-09-28 10:30 | Progress Note ---
Assessment and Plan Assessment and plan: --Acute hypoxic respiratory failure requiring intubation and mechanical ventilation Successfully extubated, continue oxygen nasal cannula titrated to O2 sats more than 90% Pulmonary following --Obstructive sleep apnea/obesity hypoventilation syndrome/morbid obesity Supportive care, BiPAP at night Patient needs sleep studies as outpatient pulmonary following --Sepsis, symptoms significantly improved Continue antibiotics follow cultures supportive care --A. fib with rapid ventricular rate on oral Cardizem Not a candidate for chronic anticoagulation in view of spontaneous subdural hematoma --History of DVT and PE Not on chronic anticoagulation in view of subdural hematoma --Seizure disorder Continue antiepileptic medications seizure precautions --Metabolic encephalopathy multifactorial Patient is more alert and oriented confused at times --History of spontaneous subdural hematoma status post left craniotomy and brain decompression in 01/02/2016 Supportive care --Hypertension well-controlled Review current antihypertensives and when necessary medications --DVT prophylaxis No pharmacologic anticoagulation, use SCDs --Full CODE STATUS Closely monitor the patient and adjust the management as needed Patient is stable to be transferred out of ICU to telemetry Consults and recommendations noted and appreciated Plan of care discussed with the patient his at the bedside the nurse As well as critical care physician Physical therapy occupational therapy, possible placement versus home with home health when medically stable Critical care time 32 minutes History Interval history: patient seen and evaluated this morning ICU Medical records reviewed, no new events reported by the nursing staff Patient is alert responding to very simple questions confused at times Tolerating clear liquids Denies chest pain or shortness of breath Hospitalist Physical - Constitutional Vitals: Temp Pulse Resp BP Pulse Ox 98.5 F 92 H 16 160/119 97 09/28/16 08:00 09/28/16 09:00 09/28/16 09:00 09/28/16 09:00 09/28/16 09:00 General appearance: Present: no acute distress, well-nourished, obese (morbidly obese) - EENT Eyes: Present: PERRL, EOM intact - Neck Neck: Present: supple, normal ROM - Respiratory Respiratory effort: normal Respiratory: bilateral: diminished, rhonchi, negative: rales, wheezing - Cardiovascular Rhythm: irregularly irregular Heart Sounds: Present: S1 & S2 - Extremities Extremities: no ischemia, pulses intact, pulses symmetrical - Abdominal General gastrointestinal: soft, non-tender, non-distended, normal bowel sounds, other (obese) - Integumentary Integumentary: Present: clear, warm - Psychiatric Psychiatric: appropriate mood/affect, other (confused at times) - Neurologic Neurologic: moves all extremities Results - Labs CBC & Chem 7: 09/28/16 03:55 09/28/16 03:55 Labs: Laboratory Last Values WBC 7.2 K/mm3 (4.5-11.0) 09/28/16 03:55 RBC 5.05 M/mm3 (3.65-5.03) H 09/28/16 03:55 Hgb 15.0 gm/dl (11.8-15.2) 09/28/16 03:55 Hct 44.0 % (35.5-45.6) 09/28/16 03:55 MCV 87 fl (84-94) 09/28/16 03:55 MCH 30 pg (28-32) 09/28/16 03:55 MCHC 34 % (32-34) 09/28/16 03:55 RDW 15.3 % (13.2-15.2) H 09/28/16 03:55 Plt Count 149 K/mm3 (140-440) 09/28/16 03:55 Lymph % (Auto) 15.8 % (13.4-35.0) 09/28/16 03:55 [place] % (Auto) 9.5 % (0.0-7.3) H 09/28/16 03:55 Eos % (Auto) 2.4 % (0.0-4.3) 09/28/16 03:55 Baso % (Auto) 0.5 % (0.0-1.8) 09/28/16 03:55 Lymph # 1.1 K/mm3 (1.2-5.4) L 09/28/16 03:55 [place] # 0.7 K/mm3 (0.0-0.8) 09/28/16 03:55 Eos # 0.2 K/mm3 (0.0-0.4) 09/28/16 03:55 Baso # 0.0 K/mm3 (0.0-0.1) 09/28/16 03:55 Add Manual Diff Complete 09/24/16 08:36 Total Counted 100 09/24/16 08:36 Seg Neutrophils % 71.8 % (40.0-70.0) H 09/28/16 03:55 Seg Neuts % (Manual) 65.0 % (40.0-70.0) 09/24/16 08:36 Band Neutrophils % 3.0 % 09/24/16 08:36 Lymphocytes % (Manual) 20.0 % (13.4-35.0) 09/24/16 08:36 Reactive Lymphs % (Man) 0 % 09/24/16 08:36 Monocytes % (Manual) 8.0 % (0.0-7.3) H 09/24/16 08:36 Eosinophils % (Manual) 3.0 % (0.0-4.3) 09/24/16 08:36 Basophils % (Manual) 1.0 % (0.0-1.8) 09/24/16 08:36 Metamyelocytes % 0 % 09/24/16 08:36 Myelocytes % 0 % 09/24/16 08:36 Promyelocytes % 0 % 09/24/16 08:36 Blast Cells % 0 % 09/24/16 08:36 Nucleated RBC % Not Reportable 09/24/16 08:36 Seg Neutrophils # 5.2 K/mm3 (1.8-7.7) 09/28/16 03:55 Seg Neutrophils # Man 9.4 K/mm3 (1.8-7.7) H 09/24/16 08:36 Band Neutrophils # 0.4 K/mm3 09/24/16 08:36 Lymphocytes # (Manual) 2.9 K/mm3 (1.2-5.4) 09/24/16 08:36 Abs React Lymphs (Man) 0.0 K/mm3 09/24/16 08:36 Monocytes # (Manual) 1.2 K/mm3 (0.0-0.8) H 09/24/16 08:36 Eosinophils # (Manual) 0.4 K/mm3 (0.0-0.4) 09/24/16 08:36 Basophils # (Manual) 0.1 K/mm3 (0.0-0.1) 09/24/16 08:36 Metamyelocytes # 0.0 K/mm3 09/24/16 08:36 Myelocytes # 0.0 K/mm3 09/24/16 08:36 Promyelocytes # 0.0 K/mm3 09/24/16 08:36 Blast Cells # 0.0 K/mm3 09/24/16 08:36 WBC Morphology Not Reportable 09/24/16 08:36 Hypersegmented Neuts Not Reportable 09/24/16 08:36 Hyposegmented Neuts Not Reportable 09/24/16 08:36 Hypogranular Neuts Not Reportable 09/24/16 08:36 Smudge Cells Not Reportable 09/24/16 08:36 Toxic Granulation Not Reportable 09/24/16 08:36 Toxic Vacuolation Not Reportable 09/24/16 08:36 Dohle Bodies Not Reportable 09/24/16 08:36 Pelger-Huet Anomaly Not Reportable 09/24/16 08:36 Ben Rods Not Reportable 09/24/16 08:36 Platelet Estimate Appears normal 09/24/16 08:36 Clumped Platelets Not Reportable 09/24/16 08:36 Plt Clumps, EDTA Not Reportable 09/24/16 08:36 Large Platelets Not Reportable 09/24/16 08:36 Giant Platelets Not Reportable 09/24/16 08:36 Platelet Satelliting Not Reportable 09/24/16 08:36 Plt Morphology Comment Not Reportable 09/24/16 08:36 RBC Morphology Normal 09/24/16 08:36 Dimorphic RBCs Not Reportable 09/24/16 08:36 Polychromasia Not Reportable 09/24/16 08:36 Hypochromasia Not Reportable 09/24/16 08:36 Poikilocytosis Not Reportable 09/24/16 08:36 Anisocytosis Not Reportable 09/24/16 08:36 Microcytosis Not Reportable 09/24/16 08:36 Macrocytosis Not Reportable 09/24/16 08:36 Spherocytes Not Reportable 09/24/16 08:36 Pappenheimer Bodies Not Reportable 09/24/16 08:36 Sickle Cells Not Reportable 09/24/16 08:36 Target Cells Not Reportable 09/24/16 08:36 Tear Drop Cells Not Reportable 09/24/16 08:36 Ovalocytes Not Reportable 09/24/16 08:36 Helmet Cells Not Reportable 09/24/16 08:36 [place] Bodies Not Reportable 09/24/16 08:36 [place] Rings Not Reportable 09/24/16 08:36 [place] Cells Not Reportable 09/24/16 08:36 Bite Cells Not Reportable 09/24/16 08:36 Crenated Cell Not Reportable 09/24/16 08:36 Elliptocytes Not Reportable 09/24/16 08:36 Acanthocytes (Spur) Not Reportable 09/24/16 08:36 Rouleaux Not Reportable 09/24/16 08:36 Hemoglobin C Crystals Not Reportable 09/24/16 08:36 Schistocytes Not Reportable 09/24/16 08:36 Malaria parasites Not Reportable 09/24/16 08:36 Sivakumar Bodies Not Reportable 09/24/16 08:36 Hem Pathologist Commnt No 09/24/16 08:36 POC ABG pH 7.309 (7.35-7.45) L 09/27/16 11:29 POC ABG pCO2 52.1 (35-45) H 09/27/16 11:29 POC ABG pO2 90 (80-105) 09/27/16 11:29 POC ABG HCO3 26.2 09/27/16 11:29 POC ABG Total CO2 28 09/27/16 11:29 POC ABG O2 Sat 96 09/27/16 11:29 POC ABG Base Excess 0 09/27/16 11:29 FiO2 40 % 09/27/16 11:29 Sodium 144 mmol/L (137-145) 09/28/16 03:55 Potassium 3.4 mmol/L (3.6-5.0) L 09/28/16 03:55 Chloride 101.9 mmol/L (98-107) 09/28/16 03:55 Carbon Dioxide 23 mmol/L (22-30) 09/28/16 03:55 Anion Gap 23 mmol/L 09/28/16 03:55 BUN 14 mg/dL (9-20) 09/28/16 03:55 Creatinine 0.8 mg/dL (0.8-1.5) 09/28/16 03:55 Estimated GFR > 60 ml/min 09/28/16 03:55 BUN/Creatinine Ratio 17.50 % 09/28/16 03:55 Glucose 85 mg/dL (75-100) 09/28/16 03:55 POC Glucose 76 (70-105) 09/28/16 05:37 Lactic Acid 1.90 mmol/L (0.7-2.0) 09/24/16 23:11 Calcium 8.9 mg/dL (8.4-10.2) 09/28/16 03:55 Magnesium 2.20 mg/dL (1.7-2.3) 09/24/16 08:45 Total Bilirubin 0.40 mg/dL (0.1-1.2) 09/24/16 08:45 AST 49 units/L (5-40) H 09/24/16 08:45 ALT 56 units/L (7-56) 09/24/16 08:45 Alkaline Phosphatase 82 units/L (35-129) 09/24/16 08:45 Troponin T < 0.010 ng/mL (0.00-0.029) 09/24/16 23:11 C-Reactive Protein 5.00 mg/dL (0.00-1.30) H 09/24/16 20:40 Total Protein 7.6 g/dL (6.3-8.2) 09/24/16 08:45 Albumin 4.3 g/dL (3.9-5) 09/24/16 08:45 Albumin/Globulin Ratio 1.3 % 09/24/16 08:45 TSH 5.740 mlU/mL (0.270-4.200) H 09/24/16 08:36 Urine Color Yellow (Yellow) 09/24/16 09:01 Urine Turbidity Cloudy (Clear) 09/24/16 09:01 Urine pH 5.0 (5.0-7.0) 09/24/16 09:01 Ur Specific [place] 1.013 (1.003-1.030) 09/24/16 09:01 Urine Protein >500 mg/dL (Negative) 09/24/16 09:01 Urine Glucose (UA) 50 mg/dL (Negative) 09/24/16 09:01 Urine Ketones Neg mg/dL (Negative) 09/24/16 09:01 Urine Blood Sm (Negative) 09/24/16 09: Urine Nitrite Neg (Negative) 09/24/16 09:01 Urine Bilirubin Neg (Negative) 09/24/16 09:01 Urine Urobilinogen < 2.0 mg/dL (<2.0) 09/24/16 09:01 Ur Leukocyte Esterase Neg (Negative) 09/24/16 09:01 Urine WBC (Auto) 13.0 /HPF (0.0-6.0) H 09/24/16 09:01 Urine RBC (Auto) 10.0 /HPF (0.0-6.0) 09/24/16 09:01 Urine Bacteria (Auto) 4+ /HPF (Negative) 09/24/16 09:01 Salicylates < 0.3 mg/dL (2.8-20.0) L 09/24/16 08:45 Urine Opiates Screen Presumptive negative 09/24/16 09:01 Urine Methadone Screen Presumptive negative 09/24/16 09:01 Acetaminophen < 15.0 ug/mL (10.0-30.0) 09/24/16 08:45 Ur Barbiturates Screen Presumptive negative 09/24/16 09:01 Ur Phencyclidine Scrn Presumptive negative 09/24/16 09:01 Ur Amphetamines Screen Presumptive negative 09/24/16 09:01 U Benzodiazepines Scrn Presumptive negative 09/24/16 09:01 Urine Cocaine Screen Presumptive negative 09/24/16 09:01 U Marijuana (THC) Screen Presumptive negative 09/24/16 09:01 Drugs of Abuse Note Disclamer 09/24/16 09:01 Plasma/Serum Alcohol < 0.01 gm% (0-0.07) 09/24/16 08:36 Blood Type A NEGATIVE 09/24/16 08:43 Antibody Screen TNR 09/24/16 08:43 AMOR Antibody Screen Negative 09/24/16 08:43
--- NOTE | 2016-09-28 10:37 | Progress Note ---
Assessment and Plan - Patient Problems (1) Acute hypoxemic respiratory failure Current Visit: Yes Status: Acute Plan to address problem: - continue bronchodilators and pulmonary toilet - continue aspiration precautions - continue BIPAP qhs / while asleep (2) Sepsis syndrome Current Visit: Yes Status: Acute Plan to address problem: - follow off AB's - clinically improved (3) Atrial fibrillation with RVR Current Visit: Yes Status: Acute Plan to address problem: - continue rate control with cardizem - cardiology evaluation ongoing - follow 2D ECHO (4) Oropharyngeal dysphagia Current Visit: Yes Status: Acute Plan to address problem: - tolerating meals - will get X-ray of jaw but doubt full fracture (5) Seizure disorder Current Visit: Yes Status: Acute Plan to address problem: - continue keppra - 6 months empiric treatment and outpatient neurology f/up (6) Discharge planning issues Current Visit: Yes Status: Acute Plan to address problem: - transfer to medical floor OK - PT/OT Subjective Date of service: 09/28/16 Principal diagnosis: cardiopulmonary PEA arrest; seizure d/o; AFib with RVR Interval history: Seen and examined at bedside; 24 hour events reviewed; nursing and respiratory care staff consulted; no adverse overnight events reported to me; resting peacefully; alert; on room air; tenuously tolerated BIPAP overnight; complaining inf jaw pain and he fell on face at home; No N/V/F/C Objective Vital Signs - 12hr 09/27/16 09/27/16 09/28/16 23:00 23:08 00:00 Temperature Pulse Rate 92 H 91 H 99 H Respiratory 21 20 20 Rate Respiratory Rate [ Generalized] Blood Pressure 137/105 137/105 153/108 O2 Sat by Pulse 97 98 98 Oximetry 09/28/16 09/28/16 09/28/16 00:30 01:00 02:00 Temperature 99.2 F Pulse Rate 99 H 99 H 94 H Respiratory 25 H 12 16 Rate Respiratory Rate [ Generalized] Blood Pressure 165/114 141/101 O2 Sat by Pulse 96 95 99 Oximetry 09/28/16 09/28/16 09/28/16 03:00 03:45 04:00 Temperature 99.6 F Pulse Rate 102 H 103 H Respiratory 15 20 Rate Respiratory Rate [ Generalized] Blood Pressure 145/104 148/102 O2 Sat by Pulse 97 95 96 Oximetry 05/10/1009/28/16 09/28/16 05:00 05:42 06:00 Temperature Pulse Rate 92 H 92 H 94 H Respiratory 19 17 Rate Respiratory 20 Rate [ Generalized] Blood Pressure 148/102 147/98 O2 Sat by Pulse 95 98 Oximetry 09/28/16 09/28/16 09/28/16 06:26 07:00 07:30 Temperature Pulse Rate 101 H 92 H Respiratory 20 Rate Respiratory Rate [ Generalized] Blood Pressure 147/88 149/107 O2 Sat by Pulse 98 98 Oximetry 09/28/16 09/28/16 08:00 09:00 Temperature 98.5 F Pulse Rate 97 H 92 H Respiratory 21 16 Rate Respiratory Rate [ Generalized] Blood Pressure 149/107 160/119 O2 Sat by Pulse 98 97 Oximetry Constitutional: no acute distress, alert Eyes: non-icteric ENT: oropharynx moist Neck: supple, no lymphadenopathy Effort: mildly labored Ascultation: Bilateral: clear, diminished breath sounds Cardiovascular: regular rate and rhythm Gastrointestinal: normoactive bowel sounds, soft, non-tender, non-distended Integumentary: normal Extremities: no cyanosis, no edema, pink and warm, pulses normal, no ischemia or petechiae Neurologic: other (sequelae of prior CVA with cognitive challenges) Psychiatric: other (sedated) CBC and BMP: 09/28/16 03:55 09/28/16 03:55 ABG, PT/INR, D-dimer: ABG POC ABG pH 7.309 (7.35-7.45) L 09/27/16 11:29 POC ABG pCO2 52.1 (35-45) H 09/27/16 11:29 POC ABG pO2 90 (80-105) 09/27/16 11:29 POC ABG HCO3 26.2 09/27/16 11:29 POC ABG Total CO2 28 09/27/16 11:29 POC ABG O2 Sat 96 09/27/16 11:29 Abnormal lab findings: Abnormal Labs 09/24/16 09/24/16 09/24/16 12:43 20:40 20:40 RBC RDW Plt Count Lymph % (Auto) [place] % (Auto) Lymph # [place] # Seg Neutrophils % Seg Neutrophils # POC ABG pH POC ABG pCO2 POC ABG pO2 Sodium Potassium Chloride Carbon Dioxide Glucose POC Glucose 130 H Lactic Acid 2.50 H* Calcium C-Reactive Protein 5.00 H 09/24/16 09/25/16 09/25/16 21:17 04:07 04:07 RBC 5.11 H RDW 16.7 H Plt Count Lymph % (Auto) 9.0 L [place] % (Auto) 9.3 H Lymph # 0.9 L [place] # 0.9 H Seg Neutrophils % 81.4 H Seg Neutrophils # 7.8 H POC ABG pH POC ABG pCO2 32.9 L POC ABG pO2 111 H Sodium Potassium Chloride 108.1 H Carbon Dioxide 21 L D Glucose 118 H POC Glucose Lactic Acid Calcium 8.3 L C-Reactive Protein 09/26/16 09/26/16 09/26/16 03:45 05:32 05:32 RBC RDW 16.4 H Plt Count Lymph % (Auto) [place] % (Auto) 8.4 H Lymph # [place] # Seg Neutrophils % 75.1 H Seg Neutrophils # POC ABG pH POC ABG pCO2 POC ABG pO2 62 L Sodium 146 H Potassium Chloride 110.8 H Carbon Dioxide Glucose POC Glucose Lactic Acid Calcium C-Reactive Protein 09/27/16 09/27/16 09/27/16 05:26 05:26 11:29 RBC RDW 16.0 H Plt Count 134 L Lymph % (Auto) [place] % (Auto) Lymph # [place] # Seg Neutrophils % 72.3 H Seg Neutrophils # POC ABG pH 7.309 L POC ABG pCO2 52.1 H POC ABG pO2 Sodium 146 H Potassium Chloride 109.5 H Carbon Dioxide Glucose POC Glucose Lactic Acid Calcium C-Reactive Protein 09/28/16 09/28/16 03:55 03:55 RBC 5.05 H RDW 15.3 H Plt Count Lymph % (Auto) [place] % (Auto) 9.5 H Lymph # 1.1 L [place] # Seg Neutrophils % 71.8 H Seg Neutrophils # POC ABG pH POC ABG pCO2 POC ABG pO2 Sodium Potassium 3.4 L Chloride Carbon Dioxide Glucose POC Glucose Lactic Acid Calcium C-Reactive Protein
[2016-09-28] MEDS: VITAMIN B-1 PO SCH (10:58)
[2016-09-28] MEDS: HCTZ PO SCH (10:58)
[2016-09-28] MEDS: PEPCID PO SCH ×2 (10:58→22:08)
[2016-09-28] MEDS: LOVENOX SUB-Q SCH (10:59)
[2016-09-28] MEDS: FOLVITE PO SCH (10:59)
[2016-09-28] MEDS: KEPPRA 750 MG in D5W 100 ML IV SCH ×2 (11:00→22:09)
[2016-09-28] MEDS: THERAGRAN Tab PO SCH (11:00)
[2016-09-28] MEDS: CARDIZEM IV SCH ×2 (12:34→20:17)
[2016-09-28] MEDS: FLOMAX PO SCH (12:35)
[2016-09-28] MEDS: LOPRESSOR IV SCH ×2 (12:35→18:30)
--- NOTE | 2016-09-28 14:16 | XRay Report ---
Mandible 2 views: History: Pain and tenderness status post fall. Findings: No fracture or lytic lesion. No dislocation. Impression: No definite evidence of acute fracture or
[2016-09-28] MEDS: LOPRESSOR PO SCH (16:34)
[2016-09-29] MEDS: LOPRESSOR IV SCH ×2 (00:16→06:13)
[2016-09-29] MEDS: CARDIZEM IV SCH ×2 (03:18→23:36)
[2016-09-29 06:27] LABS: Basophils % (Auto) 0.6 % (0.0-1.8); Eosinophils % (Auto) 1.9 % (0.0-4.3); Hematocrit 49.2 % (35.5-45.6); Hemoglobin 16.4 gm/dl (11.8-15.2); Mean Corpuscular HGB Conc 33 % (32-34); Mean Corpuscular Hemoglobin 29 pg (28-32); Mean Corpuscular Volume 87 fl (84-94); Platelet Count 149 K/mm3 (140-440); Red Blood Count 5.65 M/mm3 (3.65-5.03); Red Cell Distribution Width 15.5 % (13.2-15.2); White Blood Count 7.9 K/mm3 (4.5-11.0)
[2016-09-29 07:23] LABS: Anion Gap 22 mmol/L; BUN/Creatinine Ratio 22.85; Blood Urea Nitrogen 16 mg/dL (9-20); Calcium 8.7 mg/dL (8.4-10.2); Carbon Dioxide 20 mmol/L (22-30); Glucose 108 mg/dL (75-100); Potassium 3.5 mmol/L (3.6-5.0); Sodium 140 mmol/L (137-145)
[2016-09-29] MEDS ORDERED: K-DUR PO ONE (08:34)
--- NOTE | 2016-09-29 08:46 | Progress Note ---
Assessment and Plan Assessment and plan: --Acute hypoxic respiratory failure requiring intubation and mechanical ventilation Status post extubation, saturating well room air --Left upper extremity swelling, IV site Discontinue IV, elevate the limbs, venous Doppler to rule out DVT, wound care as needed --Obstructive sleep apnea/obesity hypoventilation syndrome/morbid obesity Continue CPAP at night, Pulmonary following, patient needs sleep study outpatient --A. fib with rapid ventricular rate on oral Cardizem Not a candidate for chronic anticoagulation in view of spontaneous subdural hematoma --History of DVT and PE Not on chronic anticoagulation in view of subdural hematoma --Seizure disorder Continue Keppra changed to oral dose seizure precautions ,--Metabolic encephalopathy multifactorial Patient is more alert and oriented confused at times --History of spontaneous subdural hematoma status post left craniotomy and brain decompression in 01/02/2016 --Hypertension well-controlled Review current antihypertensives and when necessary medications --DVT prophylaxis, continue Lovenox --Full CODE STATUS Physical therapy occupational therapy possible discharge in 1-2 days if stable Evaluation for home oxygen at discharge Plan of care discussed with the patient his at the bedside the nurse As well as critical care physician History Interval history: Patient seen and evaluated medical records reviewed Complains of left upper extremity swelling at the site of IV fluids DC IV get venous Doppler to rule out DVT Elevate the limbs Patient denies any chest pain or shortness of breath and Hospitalist Physical - Constitutional Vitals: Temp Pulse Resp BP Pulse Ox 99.4 F 105 H 20 154/98 98 09/29/16 04:55 09/29/16 06:13 09/29/16 04:55 09/29/16 06:13 09/29/16 04:55 General appearance: Present: no acute distress, well-nourished, obese (morbidly obese) - EENT Eyes: Present: PERRL, EOM intact - Neck Neck: Present: supple, normal ROM - Respiratory Respiratory effort: normal Respiratory: bilateral: diminished, negative: rales, rhonchi, wheezing - Cardiovascular Rhythm: regular Heart Sounds: Present: S1 & S2 - Extremities Extremities: no ischemia, pulses intact, pulses symmetrical - Abdominal General gastrointestinal: soft, non-tender, non-distended, normal bowel sounds - Integumentary Integumentary: Present: clear, warm - Psychiatric Psychiatric: appropriate mood/affect, cooperative - Neurologic Neurologic: CNII-XII intact, moves all extremities Results - Labs CBC & Chem 7: 09/29/16 06:10 09/29/16 06:10 Labs: Laboratory Last Values WBC 7.9 K/mm3 (4.5-11.0) 09/29/16 06:10 RBC 5.65 M/mm3 (3.65-5.03) H 09/29/16 06:10 Hgb 16.4 gm/dl (11.8-15.2) H 09/29/16 06:10 Hct 49.2 % (35.5-45.6) H 09/29/16 06:10 MCV 87 fl (84-94) 09/29/16 06:10 MCH 29 pg (28-32) 09/29/16 06:10 MCHC 33 % (32-34) 09/29/16 06:10 RDW 15.5 % (13.2-15.2) H 09/29/16 06:10 Plt Count 149 K/mm3 (140-440) 09/29/16 06:10 Lymph % (Auto) 12.1 % (13.4-35.0) L 09/29/16 06:10 [place] % (Auto) 8.9 % (0.0-7.3) H 09/29/16 06:10 Eos % (Auto) 1.9 % (0.0-4.3) 09/29/16 06:10 Baso % (Auto) 0.6 % (0.0-1.8) 09/29/16 06:10 Lymph # 1.0 K/mm3 (1.2-5.4) L 09/29/16 06:10 [place] # 0.7 K/mm3 (0.0-0.8) 09/29/16 06:10 Eos # 0.2 K/mm3 (0.0-0.4) 09/29/16 06:10 Baso # 0.0 K/mm3 (0.0-0.1) 09/29/16 06:10 Add Manual Diff Complete 09/24/16 08:36 Total Counted 100 09/24/16 08:36 Seg Neutrophils % 76.5 % (40.0-70.0) H 09/29/16 06:10 Seg Neuts % (Manual) 65.0 % (40.0-70.0) 09/24/16 08:36 Band Neutrophils % 3.0 % 09/24/16 08:36 Lymphocytes % (Manual) 20.0 % (13.4-35.0) 09/24/16 08:36 Reactive Lymphs % (Man) 0 % 09/24/16 08:36 Monocytes % (Manual) 8.0 % (0.0-7.3) H 09/24/16 08:36 Eosinophils % (Manual) 3.0 % (0.0-4.3) 09/24/16 08:36 Basophils % (Manual) 1.0 % (0.0-1.8) 09/24/16 08:36 Metamyelocytes % 0 % 09/24/16 08:36 Myelocytes % 0 % 09/24/16 08:36 Promyelocytes % 0 % 09/24/16 08:36 Blast Cells % 0 % 09/24/16 08:36 Nucleated RBC % Not Reportable 09/24/16 08:36 Seg Neutrophils # 6.0 K/mm3 (1.8-7.7) 09/29/16 06:10 Seg Neutrophils # Man 9.4 K/mm3 (1.8-7.7) H 09/24/16 08:36 Band Neutrophils # 0.4 K/mm3 09/24/16 08:36 Lymphocytes # (Manual) 2.9 K/mm3 (1.2-5.4) 09/24/16 08:36 Abs React Lymphs (Man) 0.0 K/mm3 09/24/16 08:36 Monocytes # (Manual) 1.2 K/mm3 (0.0-0.8) H 09/24/16 08:36 Eosinophils # (Manual) 0.4 K/mm3 (0.0-0.4) 09/24/16 08:36 Basophils # (Manual) 0.1 K/mm3 (0.0-0.1) 09/24/16 08:36 Metamyelocytes # 0.0 K/mm3 09/24/16 08:36 Myelocytes # 0.0 K/mm3 09/24/16 08:36 Promyelocytes # 0.0 K/mm3 09/24/16 08:36 Blast Cells # 0.0 K/mm3 09/24/16 08:36 WBC Morphology Not Reportable 09/24/16 08:36 Hypersegmented Neuts Not Reportable 09/24/16 08:36 Hyposegmented Neuts Not Reportable 09/24/16 08:36 Hypogranular Neuts Not Reportable 09/24/16 08:36 Smudge Cells Not Reportable 09/24/16 08:36 Toxic Granulation Not Reportable 09/24/16 08:36 Toxic Vacuolation Not Reportable 09/24/16 08:36 Dohle Bodies Not Reportable 09/24/16 08:36 Pelger-Huet Anomaly Not Reportable 09/24/16 08:36 Ben Rods Not Reportable 09/24/16 08:36 Platelet Estimate Appears normal 09/24/16 08:36 Clumped Platelets Not Reportable 09/24/16 08:36 Plt Clumps, EDTA Not Reportable 09/24/16 08:36 Large Platelets Not Reportable 09/24/16 08:36 Giant Platelets Not Reportable 09/24/16 08:36 Platelet Satelliting Not Reportable 09/24/16 08:36 Plt Morphology Comment Not Reportable 09/24/16 08:36 RBC Morphology Normal 09/24/16 08:36 Dimorphic RBCs Not Reportable 09/24/16 08:36 Polychromasia Not Reportable 09/24/16 08:36 Hypochromasia Not Reportable 09/24/16 08:36 Poikilocytosis Not Reportable 09/24/16 08:36 Anisocytosis Not Reportable 09/24/16 08:36 Microcytosis Not Reportable 09/24/16 08:36 Macrocytosis Not Reportable 09/24/16 08:36 Spherocytes Not Reportable 09/24/16 08:36 Pappenheimer Bodies Not Reportable 09/24/16 08:36 Sickle Cells Not Reportable 09/24/16 08:36 Target Cells Not Reportable 09/24/16 08:36 Tear Drop Cells Not Reportable 09/24/16 08:36 Ovalocytes Not Reportable 09/24/16 08:36 Helmet Cells Not Reportable 09/24/16 08:36 Cabrera-Duarte Bodies Not Reportable 09/24/16 08:36 [place] Rings Not Reportable 09/24/16 08:36 [place]bright Cells Not Reportable 09/24/16 08:36 Bite Cells Not Reportable 09/24/16 08:36 Crenated Cell Not Reportable 09/24/16 08:36 Elliptocytes Not Reportable 09/24/16 08:36 Acanthocytes (Spur) Not Reportable 09/24/16 08:36 Rouleaux Not Reportable 09/24/16 08:36 Hemoglobin C Crystals Not Reportable 09/24/16 08:36 Schistocytes Not Reportable 09/24/16 08:36 Malaria parasites Not Reportable 09/24/16 08:36 Sivakumar Bodies Not Reportable 09/24/16 08:36 Hem Pathologist Commnt No 09/24/16 08:36 POC ABG pH 7.309 (7.35-7.45) L 09/27/16 11:29 POC ABG pCO2 52.1 (35-45) H 09/27/16 11:29 POC ABG pO2 90 (80-105) 09/27/16 11:29 POC ABG HCO3 26.2 09/27/16 11:29 POC ABG Total CO2 28 09/27/16 11:29 POC ABG O2 Sat 96 09/27/16 11:29 POC ABG Base Excess 0 09/27/16 11:29 FiO2 40 % 09/27/16 11:29 Sodium 140 mmol/L (137-145) 09/29/16 06:10 Potassium 3.5 mmol/L (3.6-5.0) L 09/29/16 06:10 Chloride 102.0 mmol/L (98-107) 09/29/16 06:10 Carbon Dioxide 20 mmol/L (22-30) L 09/29/16 06:10 Anion Gap 22 mmol/L 09/29/16 06:10 BUN 16 mg/dL (9-20) 09/29/16 06:10 Creatinine 0.7 mg/dL (0.8-1.5) L 09/29/16 06:10 Estimated GFR > 60 ml/min 09/29/16 06:10 BUN/Creatinine Ratio 22.85 % 09/29/16 06:10 Glucose 108 mg/dL (75-100) H 09/29/16 06:10 POC Glucose 76 (70-105) 09/28/16 05:37 Lactic Acid 1.90 mmol/L (0.7-2.0) 09/24/16 23:11 Calcium 8.7 mg/dL (8.4-10.2) 09/29/16 06:10 Phosphorus 3.50 mg/dL (2.5-4.5) 09/29/16 06:10 Magnesium 1.70 mg/dL (1.7-2.3) 09/29/16 06:10 Total Bilirubin 0.40 mg/dL (0.1-1.2) 09/24/16 08:45 AST 49 units/L (5-40) H 09/24/16 08:45 ALT 56 units/L (7-56) 09/24/16 08:45 Alkaline Phosphatase 82 units/L (35-129) 09/24/16 08:45 Troponin T < 0.010 ng/mL (0.00-0.029) 09/24/16 23:11 C-Reactive Protein 5.00 mg/dL (0.00-1.30) H 09/24/16 20:40 Total Protein 7.6 g/dL (6.3-8.2) 09/24/16 08:45 Albumin 4.3 g/dL (3.9-5) 09/24/16 08:45 Albumin/Globulin Ratio 1.3 % 09/24/16 08:45 TSH 5.740 mlU/mL (0.270-4.200) H 09/24/16 08:36 Urine Color Yellow (Yellow) 09/24/16 09:01 Urine Turbidity Cloudy (Clear) 09/24/16 09:01 Urine pH 5.0 (5.0-7.0) 09/24/16 09:01 Ur Specific [place] 1.013 (1.003-1.030) 09/24/16 09:01 Urine Protein >500 mg/dL (Negative) 09/24/16 09:01 Urine Glucose (UA) 50 mg/dL (Negative) 09/24/16 09:01 Urine Ketones Neg mg/dL (Negative) 09/24/16 09:01 Urine Blood Sm (Negative) 09/24/16 09: Urine Nitrite Neg (Negative) 09/24/16 09:01 Urine Bilirubin Neg (Negative) 09/24/16 09:01 Urine Urobilinogen < 2.0 mg/dL (<2.0) 09/24/16 09:01 Ur Leukocyte Esterase Neg (Negative) 09/24/16 09:01 Urine WBC (Auto) 13.0 /HPF (0.0-6.0) H 09/24/16 09:01 Urine RBC (Auto) 10.0 /HPF (0.0-6.0) 09/24/16 09:01 Urine Bacteria (Auto) 4+ /HPF (Negative) 09/24/16 09:01 Salicylates < 0.3 mg/dL (2.8-20.0) L 09/24/16 08:45 Urine Opiates Screen Presumptive negative 09/24/16 09:01 Urine Methadone Screen Presumptive negative 09/24/16 09:01 Acetaminophen < 15.0 ug/mL (10.0-30.0) 09/24/16 08:45 Ur Barbiturates Screen Presumptive negative 09/24/16 09:01 Ur Phencyclidine Scrn Presumptive negative 09/24/16 09:01 Ur Amphetamines Screen Presumptive negative 09/24/16 09:01 U Benzodiazepines Scrn Presumptive negative 09/24/16 09:01 Urine Cocaine Screen Presumptive negative 09/24/16 09:01 U Marijuana (THC) Screen Presumptive negative 09/24/16 09:01 Drugs of Abuse Note Disclamer 09/24/16 09:01 Plasma/Serum Alcohol < 0.01 gm% (0-0.07) 09/24/16 08:36 Blood Type A NEGATIVE 09/24/16 08:43 Antibody Screen TNR 09/24/16 08:43 AMOR Antibody Screen Negative 09/24/16 08:43
--- NOTE | 2016-09-29 09:33 | XRay Report ---
AP CHEST :09/29/16 CLINICAL: Difficulty breathing. COMPARISON:09/28/16 FINDINGS: Normal heart and pulmonary vasculature. The lungs are normally expanded and clear. The bones and soft tissues are normal. IMPRESSION: Normal chest.
[2016-09-29] MEDS: LOVENOX SUB-Q SCH (10:23)
[2016-09-29] MEDS: VITAMIN B-1 PO SCH (10:24)
[2016-09-29] MEDS: FLOMAX PO SCH (10:24)
[2016-09-29] MEDS: FOLVITE PO SCH (10:24)
[2016-09-29] MEDS: HCTZ PO SCH (10:24)
[2016-09-29] MEDS: THERAGRAN Tab PO SCH (10:24)
[2016-09-29] MEDS: PEPCID PO SCH ×2 (10:24→21:39)
[2016-09-29] MEDS: LOPRESSOR PO SCH ×2 (10:44→21:36)
[2016-09-29] MEDS: KEPPRA PO SCH ×2 (10:44→21:37)
--- NOTE | 2016-09-29 11:00 | Progress Note ---
Assessment and Plan S/p cardiopulmonary PEA arrest Acute respiratory failure - extubated Sepsis / lactic acidosis Chronic atrial fibrillation with RVR - NO ALF ANTICOAGULATION d/t h/o spontaneous subdural hematoma Seizure disorder - neurology following. Encephalopathy H/o DVT H/o spontaneous subdural hematoma status post left craniectomy and brain decompression on 01/02/2016 BETTYE HTN Obesity Slightly elevated TSH Plan:Increase activity. Magnesium is low. Po Slo mag ordered. To keep above 2 and K above 4. Plan for DC in a day or two. Subjective Date of service: 09/29/16 Principal diagnosis: cardiopulmonary PEA arrest; seizure d/o; AFib with RVR Interval history: Patient has been transferred from CCU to telemetry. Has been using BR with help. No chest pain or palpitations. Objective Vital Signs Temp Pulse Pulse Pulse Pulse Resp BP 09/29/16 10:44 82 162/94 09/29/16 08:00 97.8 F 82 20 09/29/16 06:13 105 H 154/98 09/29/16 04:55 99.4 F 91 H 20 09/29/16 03:18 104 H 130/86 09/29/16 01:27 98.8 F 65 18 09/29/16 00:16 65 161/91 09/28/16 22:00 122 H 09/28/16 21:20 09/28/16 21:18 97.6 F 114 H 20 09/28/16 20:17 126 H 166/114 09/28/16 19:07 97.8 F 126 H 18 09/28/16 16:00 98.6 F 112 H 20 09/28/16 13:00 79 26 H 150/107 09/28/16 12:35 110 H 150/107 09/28/16 12:34 110 H 150/107 09/28/16 12:00 98.5 F 115 H 20 150/107 09/28/16 11:00 100 H 16 150/107 BP BP Pulse Ox 09/29/16 10:44 09/29/16 08:00 162/94 96 09/29/16 06:13 09/29/16 04:55 111/68 98 09/29/16 03:18 09/29/16 01:27 161/91 92 09/29/16 00:16 09/28/16 22:00 95 09/28/16 21:20 93 09/28/16 21:18 142/82 93 09/28/16 20:17 09/28/16 19:07 166/114 94 09/28/16 16:00 137/80 98 09/28/16 13:00 93 09/28/16 12:35 09/28/16 12:34 09/28/16 12:00 93 09/28/16 11:00 95 - Physical Examination General: No Apparent Distress HEENT: Positive: PERRL, Mucus Membranes Moist Neck: Positive: neck supple, trachea midline Cardiac: Positive: Irregularly Regular Lungs: Positive: clear to auscultation Neuro: Positive: Grossly Intact, Cranial Nerve 2-12 Intact Abdomen: Positive: Soft, Active Bowel Sounds. Negative: Tender Skin: Positive: Clear. Negative: Rash, Wound Musculoskeletal: No Fluid Collection, No Pain, Normal Range of Motion Extremities: Present: upper extr. pulses, lower extr. pulses. Absent: edema - Labs and Meds CBC 09/29/16 Range/Units 06:10 WBC 7.9 (4.5-11.0) K/mm3 RBC 5.65 H (3.65-5.03) M/mm3 Hgb 16.4 H (11.8-15.2) gm/dl Hct 49.2 H (35.5-45.6) % Plt Count 149 (140-440) K/mm3 Lymph # 1.0 L (1.2-5.4) K/mm3 [place] # 0.7 (0.0-0.8) K/mm3 Eos # 0.2 (0.0-0.4) K/mm3 Baso # 0.0 (0.0-0.1) K/mm3 Comprehensive Metabolic Panel 09/29/16 Range/Units 06:10 Sodium 140 (137-145) mmol/L Potassium 3.5 L (3.6-5.0) mmol/L Chloride 102.0 (98-107) mmol/L Carbon Dioxide 20 L (22-30) mmol/L BUN 16 (9-20) mg/dL Creatinine 0.7 L (0.8-1.5) mg/dL Glucose 108 H (75-100) mg/dL Calcium 8.7 (8.4-10.2) mg/dL - Imaging and Cardiology EKG: report reviewed, image reviewed Echo: report reviewed (01/09/2016: mild LVH, EF 55%, mild TR, moderately dilated RA, RVSP 51.2mmHg, trivial pericardial effusion, circumferential )
--- NOTE | 2016-09-29 12:27 | Progress Note ---
Assessment and Plan - Patient Problems (1) Acute hypoxemic respiratory failure Current Visit: Yes Status: Acute Plan to address problem: - continue bronchodilators and pulmonary toilet - continue aspiration precautions - continue BIPAP qhs / while asleep (2) Sepsis syndrome Current Visit: Yes Status: Acute Plan to address problem: - follow off AB's - clinically improved (3) Atrial fibrillation with RVR Current Visit: Yes Status: Acute Plan to address problem: - continue rate control with cardizem - cardiology evaluation ongoing - follow 2D ECHO (4) Oropharyngeal dysphagia Current Visit: Yes Status: Acute Plan to address problem: - tolerating meals - xray mandible negative for fractures (5) Seizure disorder Current Visit: Yes Status: Acute Plan to address problem: - continue keppra - 6 months empiric treatment and outpatient neurology f/up (6) Discharge planning issues Current Visit: Yes Status: Acute Plan to address problem: - home at discharge Subjective Date of service: 09/29/16 Principal diagnosis: cardiopulmonary PEA arrest; seizure d/o; AFib with RVR Interval history: Seen and examined at bedside; 24 hour events reviewed; nursing and respiratory care staff consulted; no adverse overnight events reported to me; resting peacefully; tolerating BIPAP albeit tenuously at times Objective Vital Signs - 12hr 09/29/16 09/29/16 09/29/16 01:27 03:18 04:55 Temperature 98.8 F 99.4 F Pulse Rate 104 H Pulse Rate [ 65 Left Radial] Pulse Rate [ Right Dorsalis Pedis] Pulse Rate [ 91 H Right Radial] Respiratory 18 20 Rate Blood Pressure 130/86 Blood Pressure 161/91 [Left Arm] Blood Pressure 111/68 [Right Radial Artery] O2 Sat by Pulse 92 98 Oximetry 09/29/16 09/29/16 09/29/16 06:13 08:00 10:00 Temperature 97.8 F Pulse Rate 105 H Pulse Rate [ Left Radial] Pulse Rate [ 82 Right Dorsalis Pedis] Pulse Rate [ Right Radial] Respiratory 20 Rate Blood Pressure 154/98 Blood Pressure [Left Arm] Blood Pressure 162/94 [Right Radial Artery] O2 Sat by Pulse 96 98 Oximetry 09/29/16 10:44 Temperature Pulse Rate 82 Pulse Rate [ Left Radial] Pulse Rate [ Right Dorsalis Pedis] Pulse Rate [ Right Radial] Respiratory Rate Blood Pressure 162/94 Blood Pressure [Left Arm] Blood Pressure [Right Radial Artery] O2 Sat by Pulse Oximetry Constitutional: no acute distress, alert Eyes: non-icteric ENT: oropharynx moist Neck: supple, no lymphadenopathy Effort: mildly labored Ascultation: Bilateral: diminished breath sounds, rales (scant in bases) Cardiovascular: regular rate and rhythm Gastrointestinal: normoactive bowel sounds, soft, non-tender, non-distended Integumentary: normal Extremities: no cyanosis, no edema, pink and warm, pulses normal, no ischemia or petechiae Neurologic: normal mental status, non-focal exam (grossly), pupils equal and round, motor strength normal and, other (cognitive deficits) Psychiatric: other (sedated) CBC and BMP: 09/29/16 06:10 09/29/16 06:10 ABG, PT/INR, D-dimer: ABG POC ABG pH 7.309 (7.35-7.45) L 09/27/16 11:29 POC ABG pCO2 52.1 (35-45) H 09/27/16 11:29 POC ABG pO2 90 (80-105) 09/27/16 11:29 POC ABG HCO3 26.2 09/27/16 11:29 POC ABG Total CO2 28 09/27/16 11:29 POC ABG O2 Sat 96 09/27/16 11:29 Abnormal lab findings: Abnormal Labs 09/24/16 09/24/16 09/24/16 12:43 20:40 20:40 RBC Hgb Hct RDW Plt Count Lymph % (Auto) [place] % (Auto) Lymph # [place] # Seg Neutrophils % Seg Neutrophils # POC ABG pH POC ABG pCO2 POC ABG pO2 Sodium Potassium Chloride Carbon Dioxide Creatinine Glucose POC Glucose 130 H Lactic Acid 2.50 H* Calcium C-Reactive Protein 5.00 H 09/24/16 09/25/16 09/25/16 21:17 04:07 04:07 RBC 5.11 H Hgb Hct RDW 16.7 H Plt Count Lymph % (Auto) 9.0 L [place] % (Auto) 9.3 H Lymph # 0.9 L [place] # 0.9 H Seg Neutrophils % 81.4 H Seg Neutrophils # 7.8 H POC ABG pH POC ABG pCO2 32.9 L POC ABG pO2 111 H Sodium Potassium Chloride 108.1 H Carbon Dioxide 21 L D Creatinine Glucose 118 H POC Glucose Lactic Acid Calcium 8.3 L C-Reactive Protein 09/26/16 09/26/16 09/26/16 03:45 05:32 05:32 RBC Hgb Hct RDW 16.4 H Plt Count Lymph % (Auto) [place] % (Auto) 8.4 H Lymph # [place] # Seg Neutrophils % 75.1 H Seg Neutrophils # POC ABG pH POC ABG pCO2 POC ABG pO2 62 L Sodium 146 H Potassium Chloride 110.8 H Carbon Dioxide Creatinine Glucose POC Glucose Lactic Acid Calcium C-Reactive Protein 09/27/16 09/27/16 09/27/16 05:26 05:26 11:29 RBC Hgb Hct RDW 16.0 H Plt Count 134 L Lymph % (Auto) [place] % (Auto) Lymph # [place] # Seg Neutrophils % 72.3 H Seg Neutrophils # POC ABG pH 7.309 L POC ABG pCO2 52.1 H POC ABG pO2 Sodium 146 H Potassium Chloride 109.5 H Carbon Dioxide Creatinine Glucose POC Glucose Lactic Acid Calcium C-Reactive Protein 09/28/16 09/28/16 09/29/16 03:55 03:55 06:10 RBC 5.05 H 5.65 H Hgb 16.4 H Hct 49.2 H RDW 15.3 H 15.5 H Plt Count Lymph % (Auto) 12.1 L [place] % (Auto) 9.5 H 8.9 H Lymph # 1.1 L 1.0 L [place] # Seg Neutrophils % 71.8 H 76.5 H Seg Neutrophils # POC ABG pH POC ABG pCO2 POC ABG pO2 Sodium Potassium 3.4 L Chloride Carbon Dioxide Creatinine Glucose POC Glucose Lactic Acid Calcium C-Reactive Protein 09/29/16 06:10 RBC Hgb Hct RDW Plt Count Lymph % (Auto) [place] % (Auto) Lymph # [place] # Seg Neutrophils % Seg Neutrophils # POC ABG pH POC ABG pCO2 POC ABG pO2 Sodium Potassium 3.5 L Chloride Carbon Dioxide 20 L Creatinine 0.7 L Glucose 108 H POC Glucose Lactic Acid Calcium C-Reactive Protein Chest x-ray: image reviewed
[2016-09-29] MEDS: CARDIZEM PO SCH ×2 (17:53→23:33)
[2016-09-29] MEDS: SLOW-MAG PO SCH (17:53)
[2016-09-29] MEDS: TYLENOL PO PRN (22:31)
[2016-09-30] MEDS: CARDIZEM PO SCH ×3 (02:19→18:26)
[2016-09-30] MEDS: TYLENOL PO PRN ×3 (08:41→22:14)
[2016-09-30] MEDS: LOVENOX SUB-Q SCH (10:59)
[2016-09-30] MEDS: KEPPRA PO SCH ×2 (11:00→22:05)
[2016-09-30] MEDS: FOLVITE PO SCH (11:01)
[2016-09-30] MEDS: HCTZ PO SCH (11:01)
[2016-09-30] MEDS: PEPCID PO SCH ×2 (11:01→22:06)
[2016-09-30] MEDS: FLOMAX PO SCH (11:01)
[2016-09-30] MEDS: THERAGRAN Tab PO SCH (11:01)
[2016-09-30] MEDS: VITAMIN B-1 PO SCH (11:02)
[2016-09-30] MEDS: SLOW-MAG PO SCH (11:02)
[2016-09-30] MEDS: LOPRESSOR PO SCH ×2 (11:04→22:06)
--- NOTE | 2016-09-30 11:30 | Progress Note ---
Assessment and Plan S/p cardiopulmonary PEA arrest Acute respiratory failure - extubated Sepsis / lactic acidosis Chronic atrial fibrillation with RVR - NO SHELTER ANTICOAGULATION d/t h/o spontaneous subdural hematoma Seizure disorder - neurology following. Encephalopathy H/o DVT H/o spontaneous subdural hematoma status post left craniectomy and brain decompression on 01/02/2016 BETTYE HTN Obesity Slightly elevated TSH Plan:Increase activity. Magnesium is low. Po Slo mag ordered. To keep above 2 and K above 4. Plan for DC in a day or two. Subjective Principal diagnosis: cardiopulmonary PEA arrest; seizure d/o; AFib with RVR Interval history: Patient has been transferred from CCU to telemetry. Has been using BR with help. No chest pain or palpitations.C/O pain and redness (L) arm where he had Iv. It is due to superficial thrombophlebitis. Yesterday he walked in the [place] with physical therapy, without oxygen. Objective Vital Signs Temp Pulse Pulse Pulse Pulse Pulse Resp 09/30/16 09:59 99.0 F 92 H 18 09/30/16 09:57 79 09/30/16 04:40 98.8 F 102 H 20 09/30/16 01:41 84 25 H 09/30/16 01:30 99.1 F 102 H 20 09/29/16 20:58 98.2 F 110 H 18 09/29/16 20:54 09/29/16 20:40 105 H 09/29/16 17:53 105 H 09/29/16 16:00 98 F 78 20 09/29/16 12:00 97.7 F 103 H 20 BP BP Pulse Ox 09/30/16 09:59 119/74 97 09/30/16 09:57 09/30/16 04:40 128/76 93 09/30/16 01:41 96 09/30/16 01:30 112/73 93 09/29/16 20:58 133/90 94 09/29/16 20:54 97 09/29/16 20:40 09/29/16 17:53 139/94 09/29/16 16:00 164/93 97 09/29/16 12:00 142/88 97 - Physical Examination General: No Apparent Distress HEENT: Positive: PERRL, Mucus Membranes Moist Neck: Positive: neck supple, trachea midline. Negative: JVD/HJR Cardiac: Positive: Irregularly Regular Lungs: Positive: clear to auscultation Neuro: Positive: Grossly Intact, Cranial Nerve 2-12 Intact Abdomen: Positive: Soft, Active Bowel Sounds. Negative: Tender Skin: Positive: Clear. Negative: Rash, Wound Musculoskeletal: No Fluid Collection, No Pain, Normal Range of Motion Extremities: Present: upper extr. pulses, lower extr. pulses. Absent: edema - Imaging and Cardiology EKG: report reviewed, image reviewed Echo: report reviewed (01/09/2016: mild LVH, EF 55%, mild TR, moderately dilated RA, RVSP 51.2mmHg, trivial pericardial effusion, circumferential )
--- NOTE | 2016-09-30 12:26 | Progress Note ---
Assessment and Plan Assessment and plan: --Acute hypoxic respiratory failure requiring intubation and mechanical ventilation Status post extubation, saturating well room air --Left upper extremity swelling, cellulitis/superficial thrombosis Patient not a candidate for anticoagulation in view of spontaneous subdural hematoma Elevate the limb, IV antibiotics, follow cultures --Obstructive sleep apnea/obesity hypoventilation syndrome/morbid obesity Continue CPAP at night, Pulmonary following, patient needs sleep study outpatient --A. fib with rapid ventricular rate on oral Cardizem Not a candidate for chronic anticoagulation in view of spontaneous subdural hematoma --History of DVT and PE Not on chronic anticoagulation in view of subdural hematoma --Seizure disorder Continue Keppra changed to oral dose seizure precautions ,--Metabolic encephalopathy multifactorial Patient is more alert and oriented confused at times --History of spontaneous subdural hematoma status post left craniotomy and brain decompression in 01/02/2016 --Hypertension well-controlled Review current antihypertensives and when necessary medications --DVT prophylaxis, continue Lovenox --Full CODE STATUS Physical therapy occupational therapy possible discharge in 1-2 days if stable Evaluation for home oxygen at discharge Plan of care discussed with the patient family member at the bedside and the nurse History Interval history: Recent seen and evaluated this morning medical records reviewed No new events reported by the nursing staff Left upper extremity venous Doppler negative for DVT, acute SVT noted Patient not a candidate for anticoagulation in view of spontaneous subdural hematoma Supportive care with elevated limp Condition alert awake oriented 3 no new complaints Family members the bedside Hospitalist Physical - Constitutional Vitals: Temp Pulse Resp BP Pulse Ox 99.0 F 92 H 18 119/74 97 09/30/16 09:59 09/30/16 09:59 09/30/16 09:59 09/30/16 09:59 09/30/16 09:59 General appearance: Present: no acute distress, well-nourished, obese (morbidly obese) - EENT Eyes: Present: PERRL, EOM intact - Neck Neck: Present: supple, normal ROM - Respiratory Respiratory effort: normal Respiratory: bilateral: diminished, negative: rales, rhonchi, wheezing - Cardiovascular Rhythm: regular Heart Sounds: Present: S1 & S2 - Extremities Extremities: no ischemia, pulses intact, pulses symmetrical, abnormal ( cellulitis swelling left upper extremity) - Abdominal General gastrointestinal: soft, non-tender, non-distended, normal bowel sounds - Integumentary Integumentary: Present: clear, warm - Psychiatric Psychiatric: appropriate mood/affect, cooperative - Neurologic Neurologic: CNII-XII intact, moves all extremities Results - Labs CBC & Chem 7: 09/29/16 06:10 09/29/16 06:10 Labs: Laboratory Last Values WBC 7.9 K/mm3 (4.5-11.0) 09/29/16 06:10 RBC 5.65 M/mm3 (3.65-5.03) H 09/29/16 06:10 Hgb 16.4 gm/dl (11.8-15.2) H 09/29/16 06:10 Hct 49.2 % (35.5-45.6) H 09/29/16 06:10 MCV 87 fl (84-94) 09/29/16 06:10 MCH 29 pg (28-32) 09/29/16 06:10 MCHC 33 % (32-34) 09/29/16 06:10 RDW 15.5 % (13.2-15.2) H 09/29/16 06:10 Plt Count 149 K/mm3 (140-440) 09/29/16 06:10 Lymph % (Auto) 12.1 % (13.4-35.0) L 09/29/16 06:10 Bartholomew % (Auto) 8.9 % (0.0-7.3) H 09/29/16 06:10 Eos % (Auto) 1.9 % (0.0-4.3) 09/29/16 06:10 Baso % (Auto) 0.6 % (0.0-1.8) 09/29/16 06:10 Lymph # 1.0 K/mm3 (1.2-5.4) L 09/29/16 06:10 Bartholomew # 0.7 K/mm3 (0.0-0.8) 09/29/16 06:10 Eos # 0.2 K/mm3 (0.0-0.4) 09/29/16 06:10 Baso # 0.0 K/mm3 (0.0-0.1) 09/29/16 06:10 Add Manual Diff Complete 09/24/16 08:36 Total Counted 100 09/24/16 08:36 Seg Neutrophils % 76.5 % (40.0-70.0) H 09/29/16 06:10 Seg Neuts % (Manual) 65.0 % (40.0-70.0) 09/24/16 08:36 Band Neutrophils % 3.0 % 09/24/16 08:36 Lymphocytes % (Manual) 20.0 % (13.4-35.0) 09/24/16 08:36 Reactive Lymphs % (Man) 0 % 09/24/16 08:36 Monocytes % (Manual) 8.0 % (0.0-7.3) H 09/24/16 08:36 Eosinophils % (Manual) 3.0 % (0.0-4.3) 09/24/16 08:36 Basophils % (Manual) 1.0 % (0.0-1.8) 09/24/16 08:36 Metamyelocytes % 0 % 09/24/16 08:36 Myelocytes % 0 % 09/24/16 08:36 Promyelocytes % 0 % 09/24/16 08:36 Blast Cells % 0 % 09/24/16 08:36 Nucleated RBC % Not Reportable 09/24/16 08:36 Seg Neutrophils # 6.0 K/mm3 (1.8-7.7) 09/29/16 06:10 Seg Neutrophils # Man 9.4 K/mm3 (1.8-7.7) H 09/24/16 08:36 Band Neutrophils # 0.4 K/mm3 09/24/16 08:36 Lymphocytes # (Manual) 2.9 K/mm3 (1.2-5.4) 09/24/16 08:36 Abs React Lymphs (Man) 0.0 K/mm3 09/24/16 08:36 Monocytes # (Manual) 1.2 K/mm3 (0.0-0.8) H 09/24/16 08:36 Eosinophils # (Manual) 0.4 K/mm3 (0.0-0.4) 09/24/16 08:36 Basophils # (Manual) 0.1 K/mm3 (0.0-0.1) 09/24/16 08:36 Metamyelocytes # 0.0 K/mm3 09/24/16 08:36 Myelocytes # 0.0 K/mm3 09/24/16 08:36 Promyelocytes # 0.0 K/mm3 09/24/16 08:36 Blast Cells # 0.0 K/mm3 09/24/16 08:36 WBC Morphology Not Reportable 09/24/16 08:36 Hypersegmented Neuts Not Reportable 09/24/16 08:36 Hyposegmented Neuts Not Reportable 09/24/16 08:36 Hypogranular Neuts Not Reportable 09/24/16 08:36 Smudge Cells Not Reportable 09/24/16 08:36 Toxic Granulation Not Reportable 09/24/16 08:36 Toxic Vacuolation Not Reportable 09/24/16 08:36 Dohle Bodies Not Reportable 09/24/16 08:36 Pelger-Huet Anomaly Not Reportable 09/24/16 08:36 Ben Rods Not Reportable 09/24/16 08:36 Platelet Estimate Appears normal 09/24/16 08:36 Clumped Platelets Not Reportable 09/24/16 08:36 Plt Clumps, EDTA Not Reportable 09/24/16 08:36 Large Platelets Not Reportable 09/24/16 08:36 Giant Platelets Not Reportable 09/24/16 08:36 Platelet Satelliting Not Reportable 09/24/16 08:36 Plt Morphology Comment Not Reportable 09/24/16 08:36 RBC Morphology Normal 09/24/16 08:36 Dimorphic RBCs Not Reportable 09/24/16 08:36 Polychromasia Not Reportable 09/24/16 08:36 Hypochromasia Not Reportable 09/24/16 08:36 Poikilocytosis Not Reportable 09/24/16 08:36 Anisocytosis Not Reportable 09/24/16 08:36 Microcytosis Not Reportable 09/24/16 08:36 Macrocytosis Not Reportable 09/24/16 08:36 Spherocytes Not Reportable 09/24/16 08:36 Pappenheimer Bodies Not Reportable 09/24/16 08:36 Sickle Cells Not Reportable 09/24/16 08:36 Target Cells Not Reportable 09/24/16 08:36 Tear Drop Cells Not Reportable 09/24/16 08:36 Ovalocytes Not Reportable 09/24/16 08:36 Helmet Cells Not Reportable 09/24/16 08:36 [place] Bodies Not Reportable 09/24/16 08:36 [place] Rings Not Reportable 09/24/16 08:36 [place] Cells Not Reportable 09/24/16 08:36 Bite Cells Not Reportable 09/24/16 08:36 Crenated Cell Not Reportable 09/24/16 08:36 Elliptocytes Not Reportable 09/24/16 08:36 Acanthocytes (Spur) Not Reportable 09/24/16 08:36 Rouleaux Not Reportable 09/24/16 08:36 Hemoglobin C Crystals Not Reportable 09/24/16 08:36 Schistocytes Not Reportable 09/24/16 08:36 Malaria parasites Not Reportable 09/24/16 08:36 Siv[place] Bodies Not Reportable 09/24/16 08:36 Hem Pathologist Commnt No 09/24/16 08:36 POC ABG pH 7.309 (7.35-7.45) L 09/27/16 11:29 POC ABG pCO2 52.1 (35-45) H 09/27/16 11:29 POC ABG pO2 90 (80-105) 09/27/16 11:29 POC ABG HCO3 26.2 09/27/16 11:29 POC ABG Total CO2 28 09/27/16 11:29 POC ABG O2 Sat 96 09/27/16 11:29 POC ABG Base Excess 0 09/27/16 11:29 FiO2 40 % 09/27/16 11:29 Sodium 140 mmol/L (137-145) 09/29/16 06:10 Potassium 3.5 mmol/L (3.6-5.0) L 09/29/16 06:10 Chloride 102.0 mmol/L (98-107) 09/29/16 06:10 Carbon Dioxide 20 mmol/L (22-30) L 09/29/16 06:10 Anion Gap 22 mmol/L 09/29/16 06:10 BUN 16 mg/dL (9-20) 09/29/16 06:10 Creatinine 0.7 mg/dL (0.8-1.5) L 09/29/16 06:10 Estimated GFR > 60 ml/min 09/29/16 06:10 BUN/Creatinine Ratio 22.85 % 09/29/16 06:10 Glucose 108 mg/dL (75-100) H 09/29/16 06:10 POC Glucose 76 (70-105) 09/28/16 05:37 Lactic Acid 1.90 mmol/L (0.7-2.0) 09/24/16 23:11 Calcium 8.7 mg/dL (8.4-10.2) 09/29/16 06:10 Phosphorus 3.50 mg/dL (2.5-4.5) 09/29/16 06:10 Magnesium 1.70 mg/dL (1.7-2.3) 09/29/16 06:10 Total Bilirubin 0.40 mg/dL (0.1-1.2) 09/24/16 08:45 AST 49 units/L (5-40) H 09/24/16 08:45 ALT 56 units/L (7-56) 09/24/16 08:45 Alkaline Phosphatase 82 units/L (35-129) 09/24/16 08:45 Troponin T < 0.010 ng/mL (0.00-0.029) 09/24/16 23:11 C-Reactive Protein 5.00 mg/dL (0.00-1.30) H 09/24/16 20:40 Total Protein 7.6 g/dL (6.3-8.2) 09/24/16 08:45 Albumin 4.3 g/dL (3.9-5) 09/24/16 08:45 Albumin/Globulin Ratio 1.3 % 09/24/16 08:45 TSH 5.740 mlU/mL (0.270-4.200) H 09/24/16 08:36 Urine Color Yellow (Yellow) 09/24/16 09:01 Urine Turbidity Cloudy (Clear) 09/24/16 09:01 Urine pH 5.0 (5.0-7.0) 09/24/16 09:01 Ur Specific [place] 1.013 (1.003-1.030) 09/24/16 09:01 Urine Protein >500 mg/dL (Negative) 09/24/16 09:01 Urine Glucose (UA) 50 mg/dL (Negative) 09/24/16 09:01 Urine Ketones Neg mg/dL (Negative) 09/24/16 09:01 Urine Blood Sm (Negative) 09/24/16 09:01 Urine Nitrite Neg (Negative) 09/24/16 09: Urine Bilirubin Neg (Negative) 09/24/16 09: Urine Urobilinogen < 2.0 mg/dL (<2.0) 09/24/16 09:01 Ur Leukocyte Esterase Neg (Negative) 09/24/16 09:01 Urine WBC (Auto) 13.0 /HPF (0.0-6.0) H 09/24/16 09:01 Urine RBC (Auto) 10.0 /HPF (0.0-6.0) 09/24/16 09:01 Urine Bacteria (Auto) 4+ /HPF (Negative) 09/24/16 09:01 Salicylates < 0.3 mg/dL (2.8-20.0) L 09/24/16 08:45 Urine Opiates Screen Presumptive negative 09/24/16 09:01 Urine Methadone Screen Presumptive negative 09/24/16 09:01 Acetaminophen < 15.0 ug/mL (10.0-30.0) 09/24/16 08:45 Ur Barbiturates Screen Presumptive negative 09/24/16 09:01 Ur Phencyclidine Scrn Presumptive negative 09/24/16 09:01 Ur Amphetamines Screen Presumptive negative 09/24/16 09:01 U Benzodiazepines Scrn Presumptive negative 09/24/16 09:01 Urine Cocaine Screen Presumptive negative 09/24/16 09:01 U Marijuana (THC) Screen Presumptive negative 09/24/16 09:01 Drugs of Abuse Note Disclamer 09/24/16 09:01 Plasma/Serum Alcohol < 0.01 gm% (0-0.07) 09/24/16 08:36 Blood Type A NEGATIVE 09/24/16 08:43 Antibody Screen TNR 09/24/16 08:43 AMOR Antibody Screen Negative 09/24/16 08:43
--- NOTE | 2016-09-30 12:56 | Progress Note ---
Assessment and Plan - Patient Problems (1) Acute hypoxemic respiratory failure Current Visit: Yes Status: Acute (2) Sepsis syndrome Current Visit: Yes Status: Acute (3) Atrial fibrillation with RVR Current Visit: Yes Status: Acute (4) Oropharyngeal dysphagia Current Visit: Yes Status: Acute (5) Seizure disorder Current Visit: Yes Status: Acute (6) Discharge planning issues Current Visit: Yes Status: Acute Subjective Date of service: 09/30/16 Principal diagnosis: cardiopulmonary PEA arrest; seizure d/o; AFib with RVR Interval history: Seen and examined at bedside; 24 hour events reviewed; nursing and respiratory care staff consulted; no adverse overnight events reported to me; Objective Vital Signs - 12hr 09/30/16 09/30/16 09/30/16 01:30 01:41 04:40 Temperature 99.1 F 98.8 F Pulse Rate 84 Pulse Rate [ Left Radial] Pulse Rate [ 102 H Right Apical] Pulse Rate [ 102 H Right Radial] Respiratory 20 25 H 20 Rate Blood Pressure 112/73 128/76 [Right Radial Artery] O2 Sat by Pulse 93 96 93 Oximetry 09/30/16 09/30/16 09:57 09:59 Temperature 99.0 F Pulse Rate 79 Pulse Rate [ 92 H Left Radial] Pulse Rate [ Right Apical] Pulse Rate [ Right Radial] Respiratory 18 Rate Blood Pressure 119/74 [Right Radial Artery] O2 Sat by Pulse 97 Oximetry Constitutional: no acute distress, other (somnolent) Eyes: non-icteric ENT: oropharynx moist Neck: supple, no lymphadenopathy Effort: mildly labored Ascultation: Bilateral: clear, diminished breath sounds, rales Cardiovascular: regular rate and rhythm Gastrointestinal: normoactive bowel sounds, soft, non-tender, non-distended Integumentary: normal Extremities: no cyanosis, no edema, pink and warm, pulses normal, no ischemia or petechiae Neurologic: unable to assess Psychiatric: other (sedated) CBC and BMP: 09/29/16 06:10 09/29/16 06:10 ABG, PT/INR, D-dimer: ABG POC ABG pH 7.309 (7.35-7.45) L 09/27/16 11:29 POC ABG pCO2 52.1 (35-45) H 09/27/16 11:29 POC ABG pO2 90 (80-105) 09/27/16 11:29 POC ABG HCO3 26.2 09/27/16 11:29 POC ABG Total CO2 28 09/27/16 11:29 POC ABG O2 Sat 96 09/27/16 11:29 Abnormal lab findings: Abnormal Labs 09/24/16 09/24/16 09/24/16 12:43 20:40 20:40 RBC Hgb Hct RDW Plt Count Lymph % (Auto) [place] % (Auto) Lymph # [place] # Seg Neutrophils % Seg Neutrophils # POC ABG pH POC ABG pCO2 POC ABG pO2 Sodium Potassium Chloride Carbon Dioxide Creatinine Glucose POC Glucose 130 H Lactic Acid 2.50 H* Calcium C-Reactive Protein 5.00 H 09/24/16 09/25/16 09/25/16 21:17 04:07 04:07 RBC 5.11 H Hgb Hct RDW 16.7 H Plt Count Lymph % (Auto) 9.0 L [place] % (Auto) 9.3 H Lymph # 0.9 L [place] # 0.9 H Seg Neutrophils % 81.4 H Seg Neutrophils # 7.8 H POC ABG pH POC ABG pCO2 32.9 L POC ABG pO2 111 H Sodium Potassium Chloride 108.1 H Carbon Dioxide 21 L D Creatinine Glucose 118 H POC Glucose Lactic Acid Calcium 8.3 L C-Reactive Protein 09/26/16 09/26/16 09/26/16 03:45 05:32 05:32 RBC Hgb Hct RDW 16.4 H Plt Count Lymph % (Auto) [place] % (Auto) 8.4 H Lymph # [place] # Seg Neutrophils % 75.1 H Seg Neutrophils # POC ABG pH POC ABG pCO2 POC ABG pO2 62 L Sodium 146 H Potassium Chloride 110.8 H Carbon Dioxide Creatinine Glucose POC Glucose Lactic Acid Calcium C-Reactive Protein 09/27/16 09/27/16 09/27/16 05:26 05:26 11:29 RBC Hgb Hct RDW 16.0 H Plt Count 134 L Lymph % (Auto) [place] % (Auto) Lymph # [place] # Seg Neutrophils % 72.3 H Seg Neutrophils # POC ABG pH 7.309 L POC ABG pCO2 52.1 H POC ABG pO2 Sodium 146 H Potassium Chloride 109.5 H Carbon Dioxide Creatinine Glucose POC Glucose Lactic Acid Calcium C-Reactive Protein 09/28/16 09/28/16 09/29/16 03:55 03:55 06:10 RBC 5.05 H 5.65 H Hgb 16.4 H Hct 49.2 H RDW 15.3 H 15.5 H Plt Count Lymph % (Auto) 12.1 L [place] % (Auto) 9.5 H 8.9 H Lymph # 1.1 L 1.0 L [place] # Seg Neutrophils % 71.8 H 76.5 H Seg Neutrophils # POC ABG pH POC ABG pCO2 POC ABG pO2 Sodium Potassium 3.4 L Chloride Carbon Dioxide Creatinine Glucose POC Glucose Lactic Acid Calcium C-Reactive Protein 09/29/16 06:10 RBC Hgb Hct RDW Plt Count Lymph % (Auto) [place] % (Auto) Lymph # [place] # Seg Neutrophils % Seg Neutrophils # POC ABG pH POC ABG pCO2 POC ABG pO2 Sodium Potassium 3.5 L Chloride Carbon Dioxide 20 L Creatinine 0.7 L Glucose 108 H POC Glucose Lactic Acid Calcium C-Reactive Protein
[2016-09-30] MEDS: CLEOCIN 600 MG/50 mL 600 MG/50 ML BAG IV SCH (18:25)
[2016-10-01] MEDS: CARDIZEM PO SCH ×3 (02:14→18:42)
[2016-10-01] MEDS: CLEOCIN 600 MG/50 mL 600 MG/50 ML BAG IV SCH ×4 (04:01→21:51)
[2016-10-01 05:10] LABS: Basophils % (Auto) 0.4 % (0.0-1.8); Eosinophils % (Auto) 1.3 % (0.0-4.3); Hematocrit 47.8 % (35.5-45.6); Mean Corpuscular HGB Conc 34 % (32-34); Mean Corpuscular Hemoglobin 30 pg (28-32); Platelet Count 163 K/mm3 (140-440); Red Blood Count 5.33 M/mm3 (3.65-5.03); Red Cell Distribution Width 15.5 % (13.2-15.2); White Blood Count 10.4 K/mm3 (4.5-11.0)
[2016-10-01 05:22] LABS: Mean Corpuscular Volume 89 fl (84-94)
[2016-10-01 05:24] LABS: Anion Gap 17 mmol/L; Blood Urea Nitrogen 18 mg/dL (9-20); Calcium 8.6 mg/dL (8.4-10.2); Carbon Dioxide 26 mmol/L (22-30); Chloride 97.3 mmol/L (98-107); Glucose 109 mg/dL (75-100); Potassium 3.7 mmol/L (3.6-5.0); Sodium 137 mmol/L (137-145)
[2016-10-01] MEDS ORDERED: CLEOCIN 600 MG/50 mL 600 MG/50 ML BAG IV SCH (06:00)
[2016-10-01] MEDS: FOLVITE PO SCH (09:53)
[2016-10-01] MEDS: HCTZ PO SCH (09:53)
[2016-10-01] MEDS: THERAGRAN Tab PO SCH (09:53)
[2016-10-01] MEDS: LOVENOX SUB-Q SCH (09:53)
[2016-10-01] MEDS: FLOMAX PO SCH (09:53)
[2016-10-01] MEDS: PEPCID PO SCH ×2 (09:54→21:39)
[2016-10-01] MEDS: LOPRESSOR PO SCH ×2 (09:54→21:38)
[2016-10-01] MEDS: KEPPRA PO SCH ×2 (09:54→21:39)
[2016-10-01] MEDS: SLOW-MAG PO SCH (09:54)
[2016-10-01] MEDS: VITAMIN B-1 PO SCH (09:54)
--- NOTE | 2016-10-01 10:07 | Progress Note ---
Assessment and Plan Plan: Increase Lopressor to 25mg PO BID. Plan for ischemic evaluation (lexiscan MPI) in AM. Assessment and plan reviewed with pt and pt's at bedside. The patient has been seen in conjunction with Dr. Muñoz who agrees with the assessment and plan of care. - Patient Problems (1) Cardiac arrest Current Visit: Yes Status: Resolved (2) Atrial fibrillation with RVR Current Visit: Yes Status: Chronic (3) Seizure disorder Current Visit: Yes Status: Acute (4) Sleep apnea Current Visit: Yes Status: Chronic Qualifiers: Sleep apnea type: S (5) Hypertension Current Visit: Yes Status: Chronic Qualifiers: Hypertension type: H (6) History of subdural hematoma Current Visit: Yes Status: Resolved Subjective Date of service: 10/01/16 Principal diagnosis: cardiopulmonary PEA arrest; seizure d/o; AFib with RVR Interval history: Pt resting comfortably in bed, no complaints. at bedside. In AFib on tele with HR 110s - 115s, BPs stable. Objective Last Vital Signs Temp 98.6 F 10/01/16 08:00 Pulse 65 10/01/16 08:00 Resp 18 10/01/16 08:00 BP 147/67 10/01/16 08:00 Pulse Ox 96 10/01/16 08:00 - Physical Examination General: No Apparent Distress HEENT: Positive: PERRL, Mucus Membranes Moist Neck: Positive: neck supple, trachea midline. Negative: JVD/HJR Cardiac: Positive: irregularly irregular, S1/S2, Tachycardia Lungs: Positive: clear to auscultation, Decreased Breath Sounds Neuro: Positive: Grossly Intact, Cranial Nerve 2-12 Intact Abdomen: Positive: Soft, Active Bowel Sounds. Negative: Tender Skin: Positive: Clear. Negative: Rash, Wound Musculoskeletal: No Fluid Collection, No Pain, Normal Range of Motion Extremities: Present: upper extr. pulses, lower extr. pulses. Absent: edema - Labs and Meds CBC 10/01/16 Range/Units 04:10 WBC 10.4 (4.5-11.0) K/mm3 RBC 5.33 H (3.65-5.03) M/mm3 Hgb 16.0 H (11.8-15.2) gm/dl Hct 47.8 H (35.5-45.6) % Plt Count 163 (140-440) K/mm3 Lymph # 1.4 (1.2-5.4) K/mm3 [place] # 1.0 H (0.0-0.8) K/mm3 Eos # 0.1 (0.0-0.4) K/mm3 Baso # 0.0 (0.0-0.1) K/mm3 Comprehensive Metabolic Panel 10/01/16 Range/Units 04:10 Sodium 137 (137-145) mmol/L Potassium 3.7 (3.6-5.0) mmol/L Chloride 97.3 L (98-107) mmol/L Carbon Dioxide 26 (22-30) mmol/L BUN 18 (9-20) mg/dL Creatinine 0.9 (0.8-1.5) mg/dL Glucose 109 H (75-100) mg/dL Calcium 8.6 (8.4-10.2) mg/dL - Imaging and Cardiology EKG: report reviewed, image reviewed Echo: report reviewed (09/24/2016: EF 45- 50%, mild LVH, RV slightly dilated, RA mild to moderately dilated, trace MR, mild TR, RVSP 35mmHg, abnormal LV diastolic function) - Telemetry EKG Rhythm: Atrial Fibrillation
--- NOTE | 2016-10-01 11:51 | Cat Scan Report ---
CT HEAD WITHOUT CONTRAST: HISTORY: Headache, history of intracranial bleed. Compared to 09/24/16. An approximately 3-4 cm area of diminished attenuation has developed in the right frontal lobe since the comparison exam. The etiology of this is unclear although it is suspicious for an area of subacute ischemia. The remaining brain parenchyma demonstrates normal attenuation. There is no evidence for intracranial hemorrhage or hydrocephalus. The posterior fossa and contents are within normal limits. The mastoid air cells and visualized portions of the sinuses are normal. IMPRESSION: 3-4 cm area of diminished attenuation has developed in the right frontal lobe concerning for ischemic changes. No hemorrhage is appreciated. Further evaluation with MRI brain with and without contrast is recommended.
--- NOTE | 2016-10-01 12:45 | Progress Note ---
Assessment and Plan Assessment and plan: --Intermittent headache In the setting of history of spontaneous subdural hematoma in the past check CT head without contrast for any acute abnormality --Left upper extremity swelling, cellulitis/superficial thrombosis Significant improvement of the swelling Patient not a candidate for anticoagulation in view of spontaneous subdural hematoma Elevate the limb, IV antibiotics, follow cultures --Acute hypoxic respiratory failure requiring intubation and mechanical ventilation Status post extubation, saturating well room air --Obstructive sleep apnea/obesity hypoventilation syndrome/morbid obesity Continue CPAP at night, Pulmonary following, patient needs sleep study outpatient --A. 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 Patient full CODE STATUS History Interval history: Patient seen and evaluated in his room this morning medical records reviewed Patient's and his nurse at the bedside Complains of some vague intermittent headache since yesterday Denies nausea or vomiting Left upper extremity swelling gradually improving No new events reported by the nursing staff Alert awake oriented 3 not in acute distress Hospitalist Physical - Constitutional Vitals: Temp Pulse Resp BP Pulse Ox 98.6 F 108 H 18 147/67 95 10/01/16 08:00 10/01/16 10:00 10/01/16 08:00 10/01/16 08:00 10/01/16 11:57 General appearance: Present: no acute distress, well-nourished, obese (morbidly obese) - EENT Eyes: Present: PERRL, EOM intact - Neck Neck: Present: supple, normal ROM - Respiratory Respiratory effort: normal Respiratory: bilateral: diminished, negative: rales, rhonchi, wheezing - Cardiovascular Rhythm: regular Heart Sounds: Present: S1 & S2 - Extremities Extremities: no ischemia, pulses intact, pulses symmetrical, abnormal (left upper extremity swelling around the elbow and forearm, improving) Peripheral Pulses: within normal limits - Abdominal General gastrointestinal: soft, non-tender, non-distended, normal bowel sounds - Integumentary Integumentary: Present: clear, warm - Psychiatric Psychiatric: appropriate mood/affect, cooperative - Neurologic Neurologic: CNII-XII intact, moves all extremities Results - Labs CBC & Chem 7: 10/01/16 04:10 10/01/16 04:10 Labs: Laboratory Last Values WBC 10.4 K/mm3 (4.5-11.0) 10/01/16 04:10 RBC 5.33 M/mm3 (3.65-5.03) H 10/01/16 04:10 Hgb 16.0 gm/dl (11.8-15.2) H 10/01/16 04:10 Hct 47.8 % (35.5-45.6) H 10/01/16 04:10 MCV 89 fl (84-94) 10/01/16 04:10 MCH 30 pg (28-32) 10/01/16 04:10 MCHC 34 % (32-34) 10/01/16 04:10 RDW 15.5 % (13.2-15.2) H 10/01/16 04:10 Plt Count 163 K/mm3 (140-440) 10/01/16 04:10 Lymph % (Auto) 13.2 % (13.4-35.0) L 10/01/16 04:10 [place] % (Auto) 10.0 % (0.0-7.3) H 10/01/16 04:10 Eos % (Auto) 1.3 % (0.0-4.3) 10/01/16 04:10 Baso % (Auto) 0.4 % (0.0-1.8) 10/01/16 04:10 Lymph # 1.4 K/mm3 (1.2-5.4) 10/01/16 04:10 [place] # 1.0 K/mm3 (0.0-0.8) H 10/01/16 04:10 Eos # 0.1 K/mm3 (0.0-0.4) 10/01/16 04:10 Baso # 0.0 K/mm3 (0.0-0.1) 10/01/16 04:10 Add Manual Diff Complete 09/24/16 08:36 Total Counted 100 09/24/16 08:36 Seg Neutrophils % 75.1 % (40.0-70.0) H 10/01/16 04:10 Seg Neuts % (Manual) 65.0 % (40.0-70.0) 09/24/16 08:36 Band Neutrophils % 3.0 % 09/24/16 08:36 Lymphocytes % (Manual) 20.0 % (13.4-35.0) 09/24/16 08:36 Reactive Lymphs % (Man) 0 % 09/24/16 08:36 Monocytes % (Manual) 8.0 % (0.0-7.3) H 09/24/16 08:36 Eosinophils % (Manual) 3.0 % (0.0-4.3) 09/24/16 08:36 Basophils % (Manual) 1.0 % (0.0-1.8) 09/24/16 08:36 Metamyelocytes % 0 % 09/24/16 08:36 Myelocytes % 0 % 09/24/16 08:36 Promyelocytes % 0 % 09/24/16 08:36 Blast Cells % 0 % 09/24/16 08:36 Nucleated RBC % Not Reportable 09/24/16 08:36 Seg Neutrophils # 7.8 K/mm3 (1.8-7.7) H 10/01/16 04:10 Seg Neutrophils # Man 9.4 K/mm3 (1.8-7.7) H 09/24/16 08:36 Band Neutrophils # 0.4 K/mm3 09/24/16 08:36 Lymphocytes # (Manual) 2.9 K/mm3 (1.2-5.4) 09/24/16 08:36 Abs React Lymphs (Man) 0.0 K/mm3 09/24/16 08:36 Monocytes # (Manual) 1.2 K/mm3 (0.0-0.8) H 09/24/16 08:36 Eosinophils # (Manual) 0.4 K/mm3 (0.0-0.4) 09/24/16 08:36 Basophils # (Manual) 0.1 K/mm3 (0.0-0.1) 09/24/16 08:36 Metamyelocytes # 0.0 K/mm3 09/24/16 08:36 Myelocytes # 0.0 K/mm3 09/24/16 08:36 Promyelocytes # 0.0 K/mm3 09/24/16 08:36 Blast Cells # 0.0 K/mm3 09/24/16 08:36 WBC Morphology Not Reportable 09/24/16 08:36 Hypersegmented Neuts Not Reportable 09/24/16 08:36 Hyposegmented Neuts Not Reportable 09/24/16 08:36 Hypogranular Neuts Not Reportable 09/24/16 08:36 Smudge Cells Not Reportable 09/24/16 08:36 Toxic Granulation Not Reportable 09/24/16 08:36 Toxic Vacuolation Not Reportable 09/24/16 08:36 Dohle Bodies Not Reportable 09/24/16 08:36 Pelger-Huet Anomaly Not Reportable 09/24/16 08:36 Ben Rods Not Reportable 09/24/16 08:36 Platelet Estimate Appears normal 09/24/16 08:36 Clumped Platelets Not Reportable 09/24/16 08:36 Plt Clumps, EDTA Not Reportable 09/24/16 08:36 Large Platelets Not Reportable 09/24/16 08:36 Giant Platelets Not Reportable 09/24/16 08:36 Platelet Satelliting Not Reportable 09/24/16 08:36 Plt Morphology Comment Not Reportable 09/24/16 08:36 RBC Morphology Normal 09/24/16 08:36 Dimorphic RBCs Not Reportable 09/24/16 08:36 Polychromasia Not Reportable 09/24/16 08:36 Hypochromasia Not Reportable 09/24/16 08:36 Poikilocytosis Not Reportable 09/24/16 08:36 Anisocytosis Not Reportable 09/24/16 08:36 Microcytosis Not Reportable 09/24/16 08:36 Macrocytosis Not Reportable 09/24/16 08:36 Spherocytes Not Reportable 09/24/16 08:36 Pappenheimer Bodies Not Reportable 09/24/16 08:36 Sickle Cells Not Reportable 09/24/16 08:36 Target Cells Not Reportable 09/24/16 08:36 Tear Drop Cells Not Reportable 09/24/16 08:36 Ovalocytes Not Reportable 09/24/16 08:36 Helmet Cells Not Reportable 09/24/16 08:36 [place] Bodies Not Reportable 09/24/16 08:36 [place] Rings Not Reportable 09/24/16 08:36 [place] Cells Not Reportable 09/24/16 08:36 Bite Cells Not Reportable 09/24/16 08:36 Crenated Cell Not Reportable 09/24/16 08:36 Elliptocytes Not Reportable 09/24/16 08:36 Acanthocytes (Spur) Not Reportable 09/24/16 08:36 Rouleaux Not Reportable 09/24/16 08:36 Hemoglobin C Crystals Not Reportable 09/24/16 08:36 Schistocytes Not Reportable 09/24/16 08:36 Malaria parasites Not Reportable 09/24/16 08:36 Sivakumar Bodies Not Reportable 09/24/16 08:36 Hem Pathologist Commnt No 09/24/16 08:36 POC ABG pH 7.309 (7.35-7.45) L 09/27/16 11:29 POC ABG pCO2 52.1 (35-45) H 09/27/16 11:29 POC ABG pO2 90 (80-105) 09/27/16 11:29 POC ABG HCO3 26.2 09/27/16 11:29 POC ABG Total CO2 28 09/27/16 11:29 POC ABG O2 Sat 96 09/27/16 11:29 POC ABG Base Excess 0 09/27/16 11:29 FiO2 40 % 09/27/16 11:29 Sodium 137 mmol/L (137-145) 10/01/16 04:10 Potassium 3.7 mmol/L (3.6-5.0) 10/01/16 04:10 Chloride 97.3 mmol/L (98-107) L 10/01/16 04:10 Carbon Dioxide 26 mmol/L (22-30) 10/01/16 04:10 Anion Gap 17 mmol/L 10/01/16 04:10 BUN 18 mg/dL (9-20) 10/01/16 04:10 Creatinine 0.9 mg/dL (0.8-1.5) 10/01/16 04:10 Estimated GFR > 60 ml/min 10/01/16 04:10 BUN/Creatinine Ratio 20.00 % 10/01/16 04:10 Glucose 109 mg/dL (75-100) H 10/01/16 04:10 POC Glucose 120 (70-105) H 09/30/16 21:30 Lactic Acid 1.90 mmol/L (0.7-2.0) 09/24/16 23:11 Calcium 8.6 mg/dL (8.4-10.2) 10/01/16 04:10 Phosphorus 3.50 mg/dL (2.5-4.5) 09/29/16 06:10 Magnesium 1.90 mg/dL (1.7-2.3) 10/01/16 04:10 Total Bilirubin 0.40 mg/dL (0.1-1.2) 09/24/16 08:45 AST 49 units/L (5-40) H 09/24/16 08:45 ALT 56 units/L (7-56) 09/24/16 08:45 Alkaline Phosphatase 82 units/L (35-129) 09/24/16 08:45 Troponin T < 0.010 ng/mL (0.00-0.029) 09/24/16 23:11 C-Reactive Protein 5.00 mg/dL (0.00-1.30) H 09/24/16 20:40 Total Protein 7.6 g/dL (6.3-8.2) 09/24/16 08:45 Albumin 4.3 g/dL (3.9-5) 09/24/16 08:45 Albumin/Globulin Ratio 1.3 % 09/24/16 08:45 TSH 5.740 mlU/mL (0.270-4.200) H 09/24/16 08:36 Urine Color Yellow (Yellow) 09/24/16 09:01 Urine Turbidity Cloudy (Clear) 09/24/16 09:01 Urine pH 5.0 (5.0-7.0) 09/24/16 09:01 Ur Specific [place] 1.013 (1.003-1.030) 09/24/16 09:01 Urine Protein >500 mg/dL (Negative) 09/24/16 09:01 Urine Glucose (UA) 50 mg/dL (Negative) 09/24/16 09:01 Urine Ketones Neg mg/dL (Negative) 09/24/16 09:01 Urine Blood Sm (Negative) 09/24/16 09:01 Urine Nitrite Neg (Negative) 09/24/16 09:01 Urine Bilirubin Neg (Negative) 09/24/16 09:01 Urine Urobilinogen < 2.0 mg/dL (<2.0) 09/24/16 09:01 Ur Leukocyte Esterase Neg (Negative) 09/24/16 09:01 Urine WBC (Auto) 13.0 /HPF (0.0-6.0) H 09/24/16 09:01 Urine RBC (Auto) 10.0 /HPF (0.0-6.0) 09/24/16 09:01 Urine Bacteria (Auto) 4+ /HPF (Negative) 09/24/16 09:01 Salicylates < 0.3 mg/dL (2.8-20.0) L 09/24/16 08:45 Urine Opiates Screen Presumptive negative 09/24/16 09:01 Urine Methadone Screen Presumptive negative 09/24/16 09:01 Acetaminophen < 15.0 ug/mL (10.0-30.0) 09/24/16 08:45 Ur Barbiturates Screen Presumptive negative 09/24/16 09:01 Ur Phencyclidine Scrn Presumptive negative 09/24/16 09:01 Ur Amphetamines Screen Presumptive negative 09/24/16 09:01 U Benzodiazepines Scrn Presumptive negative 09/24/16 09:01 Urine Cocaine Screen Presumptive negative 09/24/16 09:01 U Marijuana (THC) Screen Presumptive negative 09/24/16 09:01 Drugs of Abuse Note Disclamer 09/24/16 09:01 Plasma/Serum Alcohol < 0.01 gm% (0-0.07) 09/24/16 08:36 Blood Type A NEGATIVE 09/24/16 08:43 Antibody Screen TNR 09/24/16 08:43 AMOR Antibody Screen Negative 09/24/16 08:43
--- NOTE | 2016-10-01 13:36 | Event Note ---
Date: 10/01/[address] head revealed 3-4 cm area of diminished attenuation in the right frontal lobe concerning for ischemia,No hemorrhage noted Evaluation with MRI brain with and without contrast recommended Patient is not a candidate for TPA in view of his history of spontaneous subdural hematoma Manage with aspirin, statin, check lipid panel and MRI of the brain with and without contrast Stroke protocol, Reconsult neurology Patient is already on physical therapy occupational therapy Evaluation for acute rehabilitation when medically stable The above findings of the CT scan, and treatment plan discussed in detail with the patient , his and the notes
--- NOTE | 2016-10-01 16:07 | Magnetic Resonance Report ---
MRI BRAIN WITHOUT AND WITH CONTRAST: 10/01/16 12:38:00 CLINICAL: Headache and abnormal head CT. COMPARISON: CT head 10/01/16 TECHNIQUE: Axial diffusion, T1, FLAIR, gradient echo T2*, and coronal and axial T2 and sagittal T1 plus coronal and axial postcontrast T1 sequences on a 1.5 Destiny magnet. 20.0 cc of Multihance was injected intravenously for the contrast portion of the exam. Consent was obtained prior to the administration of contrast. FINDINGS: The ventricles are normal size. Asymmetric enlargement of sulci in the right frontal lobe and several hyperintense right frontal lobe gyri on T2 and FLAIR. No restricted diffusion. No mass or enhancing lesion. A single focus of hypointense signal on the gradient echo sequence in the right frontal lobe consistent with old hemorrhage. No evidence of acute or subacute hemorrhage. Status post left craniotomy. Normal pituitary and optic chiasm. The brainstem and cerebellum are normal. Intact vascular flow voids. The orbits, sinuses and soft tissues are normal. Normal calvarium and skull base. IMPRESSION: 1. 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 2. No evidence of acute/subacute infarct or hemorrhage.
[2016-10-01 16:39] LABS: Creatine Kinase 102 units/L (55-170)
[2016-10-01 17:10] LABS: Creatine Kinase MB < 1.0 ng/mL (0.0-4.0)
[2016-10-01] MEDS: TYLENOL PO PRN (21:37)
--- NOTE | 2016-10-01 22:47 | Progress Note ---
Assessment and Plan Patient sleeping at this time on CPAP 12 cm H20 pressure with 2 litres O2.Tolerating the CPAP good No acute respiratory distress.O2 satuaration reported 100%. - Patient Problems (1) Acute hypoxemic respiratory failure Current Visit: Yes Status: Acute Plan to address problem: Patient intubated and extubated. Patient presently resting on CPAP 12 cm H2O pressurewith 2 litres O2. Albuterol/atrovent aerosol treatments q 6 hours. continue S/C Lovenox. Continue Pepcid. (2) Sleep apnea Current Visit: Yes Status: Chronic Qualifiers: Sleep apnea type: S Plan to address problem: CPAP 12 cm H2O pressure with 2 litres o2. (3) Morbid obesity Current Visit: Yes Status: Acute Qualifiers: Obesity type: O Plan to address problem: Weight reduction diet. Consult nutrition. (4) Seizure disorder Current Visit: Yes Status: Acute Plan to address problem: Management as per neurology. (5) Hypertension Current Visit: Yes Status: Chronic Qualifiers: Hypertension type: H Plan to address problem: Management as per neurology. (6) History of subdural hematoma Current Visit: Yes Status: Resolved Plan to address problem: Management as per neurology. Subjective Date of service: 10/01/16 Principal diagnosis: cardiopulmonary PEA arrest; seizure d/o; AFib with RVR Interval history: Patient sleeping at this time on CPAP 12 cm H20 pressure with 2 litres O2.Tolerating the CPAP good No acute respiratory distress.O2 satuaration reported 100%. Objective Vital Signs - 12hr 10/01/16 10/01/16 10/01/16 11:57 16:00 20:11 Temperature 98.0 F 36.2 F L Pulse Rate Pulse Rate [ 60 Left Radial] Pulse Rate [ 111 H Right Dorsalis Pedis] Respiratory 18 20 Rate Blood Pressure 139/96 [Left Arm] Blood Pressure 114/76 [Right Radial Artery] O2 Sat by Pulse 95 97 Oximetry 10/01/16 22:39 Temperature Pulse Rate 104 H Pulse Rate [ Left Radial] Pulse Rate [ Right Dorsalis Pedis] Respiratory 20 Rate Blood Pressure [Left Arm] Blood Pressure [Right Radial Artery] O2 Sat by Pulse 100 Oximetry Constitutional: no acute distress, alert, asleep Eyes: non-icteric ENT: oropharynx moist Neck: supple, no lymphadenopathy Effort: mildly labored Ascultation: Bilateral: diminished breath sounds, rales (scant in bases) Cardiovascular: regular rate and rhythm Gastrointestinal: normoactive bowel sounds, soft, non-tender, non-distended Integumentary: normal Extremities: no cyanosis, no edema, pink and warm, pulses normal, no ischemia or petechiae Neurologic: normal mental status, non-focal exam (grossly), pupils equal and round, motor strength normal and, other (cognitive deficits) Psychiatric: other (sleeping.) CBC and BMP: 10/01/16 04:10 10/01/16 04:10 ABG, PT/INR, D-dimer: ABG POC ABG pH 7.309 (7.35-7.45) L 09/27/16 11:29 POC ABG pCO2 52.1 (35-45) H 09/27/16 11:29 POC ABG pO2 90 (80-105) 09/27/16 11:29 POC ABG HCO3 26.2 09/27/16 11:29 POC ABG Total CO2 28 09/27/16 11:29 POC ABG O2 Sat 96 09/27/16 11:29 Abnormal lab findings: Abnormal Labs 09/24/16 09/24/16 09/24/16 12:43 20:40 20:40 RBC Hgb Hct RDW Plt Count Lymph % (Auto) [place] % (Auto) Lymph # [place] # Seg Neutrophils % Seg Neutrophils # APTT POC ABG pH POC ABG pCO2 POC ABG pO2 Sodium Potassium Chloride Carbon Dioxide Creatinine Glucose POC Glucose 130 H Lactic Acid 2.50 H* Calcium C-Reactive Protein 5.00 H HDL Cholesterol 09/24/16 09/25/16 09/25/16 21:17 04:07 04:07 RBC 5.11 H Hgb Hct RDW 16.7 H Plt Count Lymph % (Auto) 9.0 L [place] % (Auto) 9.3 H Lymph # 0.9 L [place] # 0.9 H Seg Neutrophils % 81.4 H Seg Neutrophils # 7.8 H APTT POC ABG pH POC ABG pCO2 32.9 L POC ABG pO2 111 H Sodium Potassium Chloride 108.1 H Carbon Dioxide 21 L D Creatinine Glucose 118 H POC Glucose Lactic Acid Calcium 8.3 L C-Reactive Protein HDL Cholesterol 09/26/16 09/26/16 09/26/16 03:45 05:32 05:32 RBC Hgb Hct RDW 16.4 H Plt Count Lymph % (Auto) [place] % (Auto) 8.4 H Lymph # [place] # Seg Neutrophils % 75.1 H Seg Neutrophils # APTT POC ABG pH POC ABG pCO2 POC ABG pO2 62 L Sodium 146 H Potassium Chloride 110.8 H Carbon Dioxide Creatinine Glucose POC Glucose Lactic Acid Calcium C-Reactive Protein HDL Cholesterol 09/27/16 09/27/16 09/27/16 05:26 05:26 11:29 RBC Hgb Hct RDW 16.0 H Plt Count 134 L Lymph % (Auto) [place] % (Auto) Lymph # [place] # Seg Neutrophils % 72.3 H Seg Neutrophils # APTT POC ABG pH 7.309 L POC ABG pCO2 52.1 H POC ABG pO2 Sodium 146 H Potassium Chloride 109.5 H Carbon Dioxide Creatinine Glucose POC Glucose Lactic Acid Calcium C-Reactive Protein HDL Cholesterol 09/28/16 09/28/16 09/29/16 03:55 03:55 06:10 RBC 5.05 H 5.65 H Hgb 16.4 H Hct 49.2 H RDW 15.3 H 15.5 H Plt Count Lymph % (Auto) 12.1 L [place] % (Auto) 9.5 H 8.9 H Lymph # 1.1 L 1.0 L [place] # Seg Neutrophils % 71.8 H 76.5 H Seg Neutrophils # APTT POC ABG pH POC ABG pCO2 POC ABG pO2 Sodium Potassium 3.4 L Chloride Carbon Dioxide Creatinine Glucose POC Glucose Lactic Acid Calcium C-Reactive Protein HDL Cholesterol 09/29/16 09/30/16 10/01/16 06:10 21:30 04:10 RBC 5.33 H Hgb 16.0 H Hct 47.8 H RDW 15.5 H Plt Count Lymph % (Auto) 13.2 L [place] % (Auto) 10.0 H Lymph # [place] # 1.0 H Seg Neutrophils % 75.1 H Seg Neutrophils # 7.8 H APTT POC ABG pH POC ABG pCO2 POC ABG pO2 Sodium Potassium 3.5 L Chloride Carbon Dioxide 20 L Creatinine 0.7 L Glucose 108 H POC Glucose 120 H Lactic Acid Calcium C-Reactive Protein HDL Cholesterol 10/01/16 10/01/16 10/01/16 04:10 15:44 15:44 RBC Hgb Hct RDW Plt Count Lymph % (Auto) [place] % (Auto) Lymph # [place] # Seg Neutrophils % Seg Neutrophils # APTT 23.5 L POC ABG pH POC ABG pCO2 POC ABG pO2 Sodium Potassium Chloride 97.3 L Carbon Dioxide Creatinine Glucose 109 H POC Glucose Lactic Acid Calcium C-Reactive Protein HDL Cholesterol 35 L
[2016-10-02] MEDS: CARDIZEM PO SCH ×4 (02:33→18:59)
[2016-10-02] MEDS: CLEOCIN 600 MG/50 mL 600 MG/50 ML BAG IV SCH ×3 (04:13→22:27)
[2016-10-02] MEDS: ATROVENT IH SCH ×3 (06:55→16:44)
[2016-10-02] MEDS: PROVENTIL IH SCH ×3 (06:55→16:44)
--- NOTE | 2016-10-02 08:22 | Consultation ---
History of Present Illness - Reason for Consult Consult date: 10/02/16 HEADACHES - History of Present Illness THANKS FOR THE CONSULT NEW ONSET OF HEADACHES WILL REVIEW THE RECORD AND MAKE COMMENTS PLAN LABS Past History Past Medical History: atrial fib, DVT, pulmonary embolism, other (R SDH) Past Surgical History: Other (R hemisphere craniotomy ) Social history: , lives with family. denies: alcohol abuse, prescription drug abuse, IV drug use Family history: no significant family history Medications and Allergies Allergies Allergy/AdvReac Type Severity Reaction Status Date / Time No Known Allergies Allergy Unverified 09/24/16 08:36 Home Medications Medication Instructions Recorded Confirmed Last Taken Type Aspirin 81 mg PO DAILY 09/24/16 09/24/16 1 Day Ago History Diltiazem HCl [Diltiazem ER] 180 mg PO DAILY 09/24/16 09/24/16 1 Day Ago History Hydrochlorothiazide [HCTZ] 25 mg PO QDAY 09/24/16 09/24/16 1 Day Ago History Metoprolol Xl [Metoprolol 100 mg PO QDAY 09/24/16 09/24/16 1 Day Ago History SUCCINATE ER TAB] QUEtiapine [SEROquel] 25 mg PO DAILY 09/24/16 09/24/16 1 Day Ago History Tamsulosin [Flomax] 0.4 mg PO QDAY 09/24/16 09/24/16 1 Day Ago History Active Meds: Active Medications Acetaminophen (Tylenol) 650 mg PO Q4H PRN PRN Reason: Pain, Mild (1-3) Last Admin: 10/01/16 21:37 Dose: 650 mg Al Hydrox/Mg Hydrox/Simethicone (Alum-Mag Hydrox-Simeth [id number]/5ml) 30 ml PO Q4H PRN PRN Reason: Indigestion Albuterol (Proventil) 2.5 mg IH Q6HRT [facility] Last Admin: 10/02/16 07:50 Dose: 2.5 mg Aspirin (Baby Aspirin) 81 mg PO QDAY [facility] Atorvastatin Calcium (Lipitor) 40 mg PO QHS [facility] Last Admin: 10/01/16 21:38 Dose: 40 mg Bisacodyl (Dulcolax) 10 mg [place] QDAY PRN PRN Reason: constipation unrelieved by MOM Diltiazem HCl (Cardizem) 30 mg PO Q8H [facility] Last Admin: 10/02/16 02:33 Dose: 30 mg Enoxaparin Sodium (Lovenox) 40 mg SUB-Q QDAY [facility] Last Admin: 10/01/16 09:53 Dose: 40 mg Famotidine (Pepcid) 20 mg PO BID [facility] Last Admin: 10/01/16 21:39 Dose: 20 mg Folic Acid (Folvite) 1 mg PO DAILY [facility] Last Admin: 10/01/16 09:53 Dose: 1 mg Hydrochlorothiazide (Hctz) 25 mg PO QDAY [facility] Last Admin: 10/01/16 09:53 Dose: 25 mg Clindamycin HCl (Cleocin 600 Mg/50 Ml) 600 mg in 50 mls @ 100 mls/hr IV Q8H [facility] PRN Reason: Protocol Last Admin: 10/02/16 04:13 Dose: 100 mls/hr Ipratropium [place] (Atrovent) 0.5 mg IH Q6HRT [facility] Last Admin: 10/02/16 07:50 Dose: 0.5 mg Levetiracetam (Keppra) 750 mg PO BID [facility] Last Admin: 10/01/16 21:39 Dose: 750 mg Lorazepam (Ativan) 2 mg IV Q4H PRN PRN Reason: Seizures/AGITATION Last Admin: 09/26/16 20:33 Dose: 2 mg Magnesium Chloride (Slow-Mag) 64 mg PO QDAY [facility] Last Admin: 10/01/16 09:54 Dose: 64 mg Magnesium Hydroxide (Milk Of Magnesia) 30 ml PO Q4H PRN PRN Reason: Constipation Last Admin: 09/26/16 09:45 Dose: 30 ml Metoprolol Tartrate (Lopressor) 12.5 mg PO BID [facility] Last Admin: 10/01/16 21:38 Dose: 12.5 mg Multivitamins (Theragran Tab) 1 each PO DAILY [facility] Last Admin: 10/01/16 09:53 Dose: 1 each Quetiapine Fumarate (Seroquel) 25 mg PO QHS [facility] Last Admin: 10/01/16 21:38 Dose: 25 mg Sodium Chloride (Nacl 0.9% 500 Ml) 1 ml IV DIRECT FROILAN Tamsulosin HCl (Flomax) 0.4 mg PO QDAY [facility] Last Admin: 10/01/16 09:53 Dose: 0.4 mg Thiamine HCl (Vitamin B-1) 100 mg PO QDAY FROILAN Last Admin: 10/01/16 09:54 Dose: 100 mg Exam - Constitutional Vitals: Temp Pulse Resp BP Pulse Ox 98.8 F 77 20 130/72 94 10/02/16 04:47 10/02/16 04:47 10/02/16 04:47 10/02/16 04:47 10/02/16 04:47 Results - Labs CBC & Chem 7: 10/01/16 04:10 10/01/16 04:10 Labs: Abnormal lab results 10/01/16 10/01/16 Range/Units 15:44 15:44 APTT 23.5 L (24.2-36.6) Sec. HDL Cholesterol 35 L (40-59) mg/dL
[2016-10-02] MEDS ORDERED: LEXISCAN IV ONE ×2 (08:33→08:39)
--- NOTE | 2016-10-02 10:17 | Vascular Lab Report ---
LEFT UPPER EXTREMITY VENOUS DUPLEX: REASON FOR EXAM: Pain and swelling of the left upper extremity COMMENTS ON THE LEFT: All arm veins visualized are freely compressible without evidence of internal echogenicity. The subclavian and internal jugular veins are free of thrombus. Flow is spontaneous and phasic throughout. Superficial thrombophlebitis is noted throughout cephalic and antecubital veins COMMENTS ON THE RIGHT: The subclavian and internal jugular veins are free of thrombus. IMPRESSION: Superficial thrombophlebitis in the right cephalic and antecubital veins
[2016-10-02] MEDS: THERAGRAN Tab PO SCH (10:38)
[2016-10-02] MEDS: FOLVITE PO SCH (10:38)
[2016-10-02] MEDS: VITAMIN B-1 PO SCH (10:38)
[2016-10-02] MEDS: HCTZ PO SCH (10:38)
[2016-10-02] MEDS: BABY ASPIRIN PO SCH (10:39)
[2016-10-02] MEDS: PEPCID PO SCH ×2 (10:39→22:28)
[2016-10-02] MEDS: LOPRESSOR PO SCH ×3 (10:39→22:28)
[2016-10-02] MEDS: FLOMAX PO SCH (10:39)
[2016-10-02] MEDS: KEPPRA PO SCH ×2 (10:40→22:28)
[2016-10-02] MEDS: LOVENOX SUB-Q SCH (10:41)
[2016-10-02] MEDS: SLOW-MAG PO SCH (10:42)
[2016-10-02 11:29] LABS: Anion Gap 19 mmol/L; Blood Urea Nitrogen 16 mg/dL (9-20); Calcium 8.9 mg/dL (8.4-10.2); Carbon Dioxide 26 mmol/L (22-30); Glucose 125 mg/dL (75-100); Potassium 3.2 mmol/L (3.6-5.0); Sodium 138 mmol/L (137-145)
--- NOTE | 2016-10-02 11:40 | Progress Note ---
Assessment and Plan Assessment and plan: --Stress test negative for reversible ischemia Continue current cardiac medications --Intermittent headache CT head without contrast suspicious for ischemia MRI negative for acute abnormality, carotid Doppler no hemodynamically significant stenosis --Left upper extremity swelling, cellulitis/superficial thrombosis Continue IV clindamycin, Elevate the limb, cultures negative to date --Acute hypoxic respiratory failure requiring intubation and mechanical ventilation Status post extubation, saturating well room air --Obstructive sleep apnea/obesity hypoventilation syndrome/morbid obesity Continue CPAP at night, Pulmonary following, patient needs sleep study outpatient --A. fib with rapid ventricular rate on oral Cardizem Not a candidate for chronic anticoagulation in view of spontaneous subdural hematoma --History of DVT and PE Not on chronic anticoagulation in view of subdural hematoma --Seizure disorder Continue Keppra changed to oral dose seizure precautions ,--Metabolic encephalopathy multifactorial Patient is more alert and oriented confused at times --History of spontaneous subdural hematoma status post left craniotomy and brain decompression in 01/02/2016 --Hypertension well-controlled Continue current antihypertensives and when necessary medications --DVT prophylaxis, continue Lovenox This planning per case management, possible home health, CPAP Patient's condition and treatment plan discussed in detail with the patient , at the bedside as well as his nurse. Patient full CODE STATUS History Interval history: Patient and evaluated medical records reviewed No new events reported by the nursing staff Patient had nuclear stress test, negative for reversible ischemia Patient denies any chest pain or shortness of breath Alert awake oriented 3 not in acute distress MRA done yesterday did not reveal any acute intracranial abnormalities Hospitalist Physical - Constitutional Vitals: Temp Pulse Resp BP Pulse Ox 98.8 F 119 H 20 116/76 93 10/02/16 04:47 10/02/16 11:00 10/02/16 04:47 10/02/16 11:00 10/02/16 08:30 General appearance: Present: no acute distress, well-nourished, obese (morbidly obese) - EENT Eyes: Present: PERRL, EOM intact - Neck Neck: Present: supple, normal ROM - Respiratory Respiratory effort: normal Respiratory: bilateral: diminished, rales, rhonchi - Cardiovascular Rhythm: regular Heart Sounds: Present: S1 & S2 - Extremities Extremities: no ischemia, pulses intact, pulses symmetrical, abnormal (Upper extremity swelling significantly improved) Peripheral Pulses: within normal limits - Abdominal General gastrointestinal: soft, non-tender, non-distended, normal bowel sounds - Integumentary Integumentary: Present: clear, warm - Psychiatric Psychiatric: appropriate mood/affect, cooperative - Neurologic Neurologic: CNII-XII intact, moves all extremities Results - Labs CBC & Chem 7: 10/01/16 04:10 10/02/16 10:06 Labs: Laboratory Last Values WBC 10.4 K/mm3 (4.5-11.0) 10/01/16 04:10 RBC 5.33 M/mm3 (3.65-5.03) H 10/01/16 04:10 Hgb 16.0 gm/dl (11.8-15.2) H 10/01/16 04:10 Hct 47.8 % (35.5-45.6) H 10/01/16 04:10 MCV 89 fl (84-94) 10/01/16 04:10 MCH 30 pg (28-32) 10/01/16 04:10 MCHC 34 % (32-34) 10/01/16 04:10 RDW 15.5 % (13.2-15.2) H 10/01/16 04:10 Plt Count 163 K/mm3 (140-440) 10/01/16 04:10 Lymph % (Auto) 13.2 % (13.4-35.0) L 10/01/16 04:10 [place] % (Auto) 10.0 % (0.0-7.3) H 10/01/16 04:10 Eos % (Auto) 1.3 % (0.0-4.3) 10/01/16 04:10 Baso % (Auto) 0.4 % (0.0-1.8) 10/01/16 04:10 Lymph # 1.4 K/mm3 (1.2-5.4) 10/01/16 04:10 [place] # 1.0 K/mm3 (0.0-0.8) H 10/01/16 04:10 Eos # 0.1 K/mm3 (0.0-0.4) 10/01/16 04:10 Baso # 0.0 K/mm3 (0.0-0.1) 10/01/16 04:10 Add Manual Diff Complete 09/24/16 08:36 Total Counted 100 09/24/16 08:36 Seg Neutrophils % 75.1 % (40.0-70.0) H 10/01/16 04:10 Seg Neuts % (Manual) 65.0 % (40.0-70.0) 09/24/16 08:36 Band Neutrophils % 3.0 % 09/24/16 08:36 Lymphocytes % (Manual) 20.0 % (13.4-35.0) 09/24/16 08:36 Reactive Lymphs % (Man) 0 % 09/24/16 08:36 Monocytes % (Manual) 8.0 % (0.0-7.3) H 09/24/16 08:36 Eosinophils % (Manual) 3.0 % (0.0-4.3) 09/24/16 08:36 Basophils % (Manual) 1.0 % (0.0-1.8) 09/24/16 08:36 Metamyelocytes % 0 % 09/24/16 08:36 Myelocytes % 0 % 09/24/16 08:36 Promyelocytes % 0 % 09/24/16 08:36 Blast Cells % 0 % 09/24/16 08:36 Nucleated RBC % Not Reportable 09/24/16 08:36 Seg Neutrophils # 7.8 K/mm3 (1.8-7.7) H 10/01/16 04:10 Seg Neutrophils # Man 9.4 K/mm3 (1.8-7.7) H 09/24/16 08:36 Band Neutrophils # 0.4 K/mm3 09/24/16 08:36 Lymphocytes # (Manual) 2.9 K/mm3 (1.2-5.4) 09/24/16 08:36 Abs React Lymphs (Man) 0.0 K/mm3 09/24/16 08:36 Monocytes # (Manual) 1.2 K/mm3 (0.0-0.8) H 09/24/16 08:36 Eosinophils # (Manual) 0.4 K/mm3 (0.0-0.4) 09/24/16 08:36 Basophils # (Manual) 0.1 K/mm3 (0.0-0.1) 09/24/16 08:36 Metamyelocytes # 0.0 K/mm3 09/24/16 08:36 Myelocytes # 0.0 K/mm3 09/24/16 08:36 Promyelocytes # 0.0 K/mm3 09/24/16 08:36 Blast Cells # 0.0 K/mm3 09/24/16 08:36 WBC Morphology Not Reportable 09/24/16 08:36 Hypersegmented Neuts Not Reportable 09/24/16 08:36 Hyposegmented Neuts Not Reportable 09/24/16 08:36 Hypogranular Neuts Not Reportable 09/24/16 08:36 Smudge Cells Not Reportable 09/24/16 08:36 Toxic Granulation Not Reportable 09/24/16 08:36 Toxic Vacuolation Not Reportable 09/24/16 08:36 Dohle Bodies Not Reportable 09/24/16 08:36 Pelger-Huet Anomaly Not Reportable 09/24/16 08:36 Ben Rods Not Reportable 09/24/16 08:36 Platelet Estimate Appears normal 09/24/16 08:36 Clumped Platelets Not Reportable 09/24/16 08:36 Plt Clumps, EDTA Not Reportable 09/24/16 08:36 Large Platelets Not Reportable 09/24/16 08:36 Giant Platelets Not Reportable 09/24/16 08:36 Platelet Satelliting Not Reportable 09/24/16 08:36 Plt Morphology Comment Not Reportable 09/24/16 08:36 RBC Morphology Normal 09/24/16 08:36 Dimorphic RBCs Not Reportable 09/24/16 08:36 Polychromasia Not Reportable 09/24/16 08:36 Hypochromasia Not Reportable 09/24/16 08:36 Poikilocytosis Not Reportable 09/24/16 08:36 Anisocytosis Not Reportable 09/24/16 08:36 Microcytosis Not Reportable 09/24/16 08:36 Macrocytosis Not Reportable 09/24/16 08:36 Spherocytes Not Reportable 09/24/16 08:36 Pappenheimer Bodies Not Reportable 09/24/16 08:36 Sickle Cells Not Reportable 09/24/16 08:36 Target Cells Not Reportable 09/24/16 08:36 Tear Drop Cells Not Reportable 09/24/16 08:36 Ovalocytes Not Reportable 09/24/16 08:36 Helmet Cells Not Reportable 09/24/16 08:36 [place] Bodies Not Reportable 09/24/16 08:36 [place] Rings Not Reportable 09/24/16 08:36 [place] Cells Not Reportable 09/24/16 08:36 Bite Cells Not Reportable 09/24/16 08:36 Crenated Cell Not Reportable 09/24/16 08:36 Elliptocytes Not Reportable 09/24/16 08:36 Acanthocytes (Spur) Not Reportable 09/24/16 08:36 Rouleaux Not Reportable 09/24/16 08:36 Hemoglobin C Crystals Not Reportable 09/24/16 08:36 Schistocytes Not Reportable 09/24/16 08:36 Malaria parasites Not Reportable 09/24/16 08:36 ESR 42 mm/Hr (0-20) 10/02/16 10:06 Siv[place]umar Bodies Not Reportable 09/24/16 08:36 Hem Pathologist Commnt No 09/24/16 08:36 APTT 23.5 Sec. (24.2-36.6) L 10/01/16 15:44 POC ABG pH 7.309 (7.35-7.45) L 09/27/16 11:29 POC ABG pCO2 52.1 (35-45) H 09/27/16 11:29 POC ABG pO2 90 (80-105) 09/27/16 11:29 POC ABG HCO3 26.2 09/27/16 11:29 POC ABG Total CO2 28 09/27/16 11:29 POC ABG O2 Sat 96 09/27/16 11:29 POC ABG Base Excess 0 09/27/16 11:29 FiO2 40 % 09/27/16 11:29 Sodium 138 mmol/L (137-145) 10/02/16 10:06 Potassium 3.2 mmol/L (3.6-5.0) L 10/02/16 10:06 Chloride 96.0 mmol/L (98-107) L 10/02/16 10:06 Carbon Dioxide 26 mmol/L (22-30) 10/02/16 10:06 Anion Gap 19 mmol/L 10/02/16 10:06 BUN 16 mg/dL (9-20) 10/02/16 10:06 Creatinine 0.8 mg/dL (0.8-1.5) 10/02/16 10:06 Estimated GFR > 60 ml/min 10/02/16 10:06 BUN/Creatinine Ratio 20.00 % 10/02/16 10:06 Glucose 125 mg/dL (75-100) H 10/02/16 10:06 POC Glucose 120 (70-105) H 09/30/16 21:30 Lactic Acid 1.90 mmol/L (0.7-2.0) 09/24/16 23:11 Calcium 8.9 mg/dL (8.4-10.2) 10/02/16 10:06 Phosphorus 3.50 mg/dL (2.5-4.5) 09/29/16 06:10 Magnesium 2.00 mg/dL (1.7-2.3) 10/02/16 10:06 Total Bilirubin 0.40 mg/dL (0.1-1.2) 09/24/16 08:45 AST 49 units/L (5-40) H 09/24/16 08:45 ALT 56 units/L (7-56) 09/24/16 08:45 Alkaline Phosphatase 82 units/L (35-129) 09/24/16 08:45 Total Creatine Kinase 102 units/L (55-170) 10/01/16 15:44 CK-MB (CK-2) < 1.0 ng/mL (0.0-4.0) 10/01/16 15:44 CK-MB (CK-2) Rel Index 0.9 (0-4) 10/01/16 15:44 Troponin T < 0.010 ng/mL (0.00-0.029) 10/01/16 15:44 C-Reactive Protein 5.00 mg/dL (0.00-1.30) H 09/24/16 20:40 Total Protein 7.6 g/dL (6.3-8.2) 09/24/16 08:45 Albumin 4.3 g/dL (3.9-5) 09/24/16 08:45 Albumin/Globulin Ratio 1.3 % 09/24/16 08:45 Triglycerides 144 mg/dL (2-149) 10/01/16 15:44 Cholesterol 172 mg/dL (50-199) 10/01/16 15:44 LDL Cholesterol Direct 109 mg/dL (50-130) 10/01/16 15:44 HDL Cholesterol 35 mg/dL (40-59) L 10/01/16 15:44 Cholesterol/HDL Ratio 4.91 % 10/01/16 15:44 TSH 5.740 mlU/mL (0.270-4.200) H 09/24/16 08:36 Urine Color Yellow (Yellow) 09/24/16 09:01 Urine Turbidity Cloudy (Clear) 09/24/16 09:01 Urine pH 5.0 (5.0-7.0) 09/24/16 09:01 Ur Specific [place] 1.013 (1.003-1.030) 09/24/16 09:01 Urine Protein >500 mg/dL (Negative) 09/24/16 09:01 Urine Glucose (UA) 50 mg/dL (Negative) 09/24/16 09:01 Urine Ketones Neg mg/dL (Negative) 09/24/16 09:01 Urine Blood Sm (Negative) 09/24/16 09:01 Urine Nitrite Neg (Negative) 09/24/16 09:01 Urine Bilirubin Neg (Negative) 09/24/16 09:01 Urine Urobilinogen < 2.0 mg/dL (<2.0) 09/24/16 09:01 Ur Leukocyte Esterase Neg (Negative) 09/24/16 09:01 Urine WBC (Auto) 13.0 /HPF (0.0-6.0) H 09/24/16 09:01 Urine RBC (Auto) 10.0 /HPF (0.0-6.0) 09/24/16 09:01 Urine Bacteria (Auto) 4+ /HPF (Negative) 09/24/16 09:01 Salicylates < 0.3 mg/dL (2.8-20.0) L 09/24/16 08:45 Urine Opiates Screen Presumptive negative 09/24/16 09:01 Urine Methadone Screen Presumptive negative 09/24/16 09:01 Acetaminophen < 15.0 ug/mL (10.0-30.0) 09/24/16 08:45 Ur Barbiturates Screen Presumptive negative 09/24/16 09:01 Ur Phencyclidine Scrn Presumptive negative 09/24/16 09:01 Ur Amphetamines Screen Presumptive negative 09/24/16 09:01 U Benzodiazepines Scrn Presumptive negative 09/24/16 09:01 Urine Cocaine Screen Presumptive negative 09/24/16 09:01 U Marijuana (THC) Screen Presumptive negative 09/24/16 09:01 Drugs of Abuse Note Disclamer 09/24/16 09:01 Plasma/Serum Alcohol < 0.01 gm% (0-0.07) 09/24/16 08:36 Blood Type A NEGATIVE 09/24/16 08:43 Antibody Screen TNR 09/24/16 08:43 AMOR Antibody Screen Negative 09/24/16 08:43
[2016-10-02] MEDS ORDERED: K-DUR PO ONE (12:00)
--- NOTE | 2016-10-02 12:32 | Progress Note ---
Assessment and Plan Plan: s/p lexiscan MPI this AM which was negative for ischemia. Increase Lopressor to 25mg PO BID. Increase cardizem to 30mg PO Q6H. Assessment and plan reviewed with pt and pt's at bedside. The patient has been seen in conjunction with Dr. Muñoz who agrees with the assessment and plan of care. - Patient Problems (1) Cardiac arrest Current Visit: Yes Status: Resolved (2) Atrial fibrillation with RVR Current Visit: Yes Status: Chronic (3) Seizure disorder Current Visit: Yes Status: Acute (4) Sleep apnea Current Visit: Yes Status: Chronic Qualifiers: Sleep apnea type: S (5) Hypertension Current Visit: Yes Status: Chronic Qualifiers: Hypertension type: H (6) History of subdural hematoma Current Visit: Yes Status: Resolved Subjective Date of service: 10/02/16 Principal diagnosis: cardiopulmonary PEA arrest; seizure d/o; AFib with RVR Interval history: Pt seen in stress lab, no complaints. Remains in AFib with RVR, HR 120s, BPs stable. Objective Last Vital Signs Temp 98.8 F 10/02/16 04:47 Pulse 119 H 10/02/16 11:00 Resp 20 10/02/16 04:47 BP 116/76 10/02/16 11:00 Pulse Ox 93 10/02/16 08:30 - Physical Examination General: No Apparent Distress HEENT: Positive: PERRL, Mucus Membranes Moist Neck: Positive: neck supple, trachea midline. Negative: JVD/HJR Cardiac: Positive: irregularly irregular, S1/S2, Tachycardia Lungs: Positive: clear to auscultation, Normal Breath Sounds Neuro: Positive: Grossly Intact, Cranial Nerve 2-12 Intact Abdomen: Positive: Soft, Active Bowel Sounds. Negative: Tender Skin: Positive: Clear. Negative: Rash, Wound Musculoskeletal: No Fluid Collection, No Pain, Normal Range of Motion Extremities: Present: upper extr. pulses, lower extr. pulses. Absent: edema - Labs and Meds Cardiac Enzymes 10/01/16 Range/Units 15:44 CK-MB (CK-2) < 1.0 (0.0-4.0) ng/mL Coagulation 10/01/16 Range/Units 15:44 APTT 23.5 L (24.2-36.6) Sec. Lipids 10/01/16 Range/Units 15:44 Triglycerides 144 (2-149) mg/dL Cholesterol 172 (50-199) mg/dL HDL Cholesterol 35 L (40-59) mg/dL Cholesterol/HDL Ratio 4.91 % Comprehensive Metabolic Panel 10/02/16 Range/Units 10:06 Sodium 138 (137-145) mmol/L Potassium 3.2 L (3.6-5.0) mmol/L Chloride 96.0 L (98-107) mmol/L Carbon Dioxide 26 (22-30) mmol/L BUN 16 (9-20) mg/dL Creatinine 0.8 (0.8-1.5) mg/dL Glucose 125 H (75-100) mg/dL Calcium 8.9 (8.4-10.2) mg/dL - Imaging and Cardiology EKG: report reviewed, image reviewed Echo: report reviewed (09/24/2016: EF 45- 50%, mild LVH, RV slightly dilated, RA mild to moderately dilated, trace MR, mild TR, RVSP 35mmHg, abnormal LV diastolic function) - Telemetry EKG Rhythm: Atrial Fibrillation
--- NOTE | 2016-10-02 19:09 | Progress Note ---
Assessment and Plan Patient alert, awake and resting on Room air. No complaint of chest pain, shortness of breath or cough.O2 satuaration 95%. - Patient Problems (1) Acute hypoxemic respiratory failure Current Visit: Yes Status: Acute Plan to address problem: Patient intubated and extubated. Patient presently resting on CPAP 12 cm H2O pressurewith 2 litres O2. Albuterol/atrovent aerosol treatments q 6 hours. continue S/C Lovenox. Continue Pepcid. (2) Sleep apnea Current Visit: Yes Status: Chronic Qualifiers: Sleep apnea type: S Plan to address problem: CPAP 12 cm H2O pressure with 2 litres O2. (3) Morbid obesity Current Visit: Yes Status: Acute Qualifiers: Obesity type: O Plan to address problem: Weight reduction diet. Consult nutrition. (4) Seizure disorder Current Visit: Yes Status: Acute Plan to address problem: Management as per neurology. (5) Hypertension Current Visit: Yes Status: Chronic Qualifiers: Hypertension type: H Plan to address problem: Management as per neurology. (6) History of subdural hematoma Current Visit: Yes Status: Resolved Plan to address problem: Management as per neurology. Subjective Date of service: 10/02/16 Principal diagnosis: cardiopulmonary PEA arrest; seizure d/o; AFib with RVR Interval history: Patient alert, awake and resting on Room air. No complaint of chest pain, shortness of breath or cough.O2 satuaration 95%. Objective Vital Signs - 12hr 10/02/16 10/02/16 10/02/16 07:10 08:30 08:44 Temperature Pulse Rate 137 H 105 H Pulse Rate [ From Monitor] Pulse Rate [ Left Dorsalis Pedis] Respiratory Rate Blood Pressure 98/74 Blood Pressure [Right Radial Artery] O2 Sat by Pulse 93 Oximetry 10/02/16 10/02/16 10/02/16 08:46 08:47 08:48 Temperature Pulse Rate 127 H 148 H 130 H Pulse Rate [ From Monitor] Pulse Rate [ Left Dorsalis Pedis] Respiratory Rate Blood Pressure 87/60 128/68 111/79 Blood Pressure [Right Radial Artery] O2 Sat by Pulse Oximetry 10/02/16 10/02/16 10/02/16 08:49 08:50 10:39 Temperature Pulse Rate 122 H 127 H 119 H Pulse Rate [ From Monitor] Pulse Rate [ Left Dorsalis Pedis] Respiratory Rate Blood Pressure 126/65 118/73 116/76 Blood Pressure [Right Radial Artery] O2 Sat by Pulse Oximetry 10/02/16 10/02/16 10/02/16 11:00 12:00 14:50 Temperature 98.6 F Pulse Rate 119 H 80 Pulse Rate [ 80 From Monitor] Pulse Rate [ Left Dorsalis Pedis] Respiratory 20 Rate Blood Pressure 116/76 160/94 Blood Pressure 160/94 [Right Radial Artery] O2 Sat by Pulse 97 Oximetry 10/02/16 10/02/16 10/02/16 14:51 16:00 18:59 Temperature 98.1 F Pulse Rate 80 99 H Pulse Rate [ From Monitor] Pulse Rate [ 99 H Left Dorsalis Pedis] Respiratory 20 Rate Blood Pressure 160/94 123/85 Blood Pressure 123/85 [Right Radial Artery] O2 Sat by Pulse 95 Oximetry Constitutional: no acute distress, alert, asleep Eyes: non-icteric ENT: oropharynx moist Neck: supple, no lymphadenopathy Effort: mildly labored Ascultation: Bilateral: diminished breath sounds, rales (scant in bases) Cardiovascular: regular rate and rhythm Gastrointestinal: normoactive bowel sounds, soft, non-tender, non-distended Integumentary: normal Extremities: no cyanosis, no edema, pink and warm, pulses normal, no ischemia or petechiae Neurologic: normal mental status, non-focal exam (grossly), pupils equal and round, motor strength normal and, other (cognitive deficits) Psychiatric: other (sleeping.) CBC and BMP: 10/01/16 04:10 10/02/16 10:06 ABG, PT/INR, D-dimer: ABG POC ABG pH 7.309 (7.35-7.45) L 09/27/16 11:29 POC ABG pCO2 52.1 (35-45) H 09/27/16 11:29 POC ABG pO2 90 (80-105) 09/27/16 11:29 POC ABG HCO3 26.2 09/27/16 11:29 POC ABG Total CO2 28 09/27/16 11:29 POC ABG O2 Sat 96 09/27/16 11:29 Abnormal lab findings: Abnormal Labs 09/24/16 09/24/16 09/24/16 12:43 20:40 20:40 RBC Hgb Hct RDW Plt Count Lymph % (Auto) [place] % (Auto) Lymph # [place] # Seg Neutrophils % Seg Neutrophils # APTT POC ABG pH POC ABG pCO2 POC ABG pO2 Sodium Potassium Chloride Carbon Dioxide Creatinine Glucose POC Glucose 130 H Lactic Acid 2.50 H* Calcium C-Reactive Protein 5.00 H HDL Cholesterol 09/24/16 09/25/16 09/25/16 21:17 04:07 04:07 RBC 5.11 H Hgb Hct RDW 16.7 H Plt Count Lymph % (Auto) 9.0 L [place] % (Auto) 9.3 H Lymph # 0.9 L [place] # 0.9 H Seg Neutrophils % 81.4 H Seg Neutrophils # 7.8 H APTT POC ABG pH POC ABG pCO2 32.9 L POC ABG pO2 111 H Sodium Potassium Chloride 108.1 H Carbon Dioxide 21 L D Creatinine Glucose 118 H POC Glucose Lactic Acid Calcium 8.3 L C-Reactive Protein HDL Cholesterol 09/26/16 09/26/16 09/26/16 03:45 05:32 05:32 RBC Hgb Hct RDW 16.4 H Plt Count Lymph % (Auto) [place] % (Auto) 8.4 H Lymph # [place] # Seg Neutrophils % 75.1 H Seg Neutrophils # APTT POC ABG pH POC ABG pCO2 POC ABG pO2 62 L Sodium 146 H Potassium Chloride 110.8 H Carbon Dioxide Creatinine Glucose POC Glucose Lactic Acid Calcium C-Reactive Protein HDL Cholesterol 09/27/16 09/27/16 09/27/16 05:26 05:26 11:29 RBC Hgb Hct RDW 16.0 H Plt Count 134 L Lymph % (Auto) [place] % (Auto) Lymph # [place] # Seg Neutrophils % 72.3 H Seg Neutrophils # APTT POC ABG pH 7.309 L POC ABG pCO2 52.1 H POC ABG pO2 Sodium 146 H Potassium Chloride 109.5 H Carbon Dioxide Creatinine Glucose POC Glucose Lactic Acid Calcium C-Reactive Protein HDL Cholesterol 09/28/16 09/28/16 09/29/16 03:55 03:55 06:10 RBC 5.05 H 5.65 H Hgb 16.4 H Hct 49.2 H RDW 15.3 H 15.5 H Plt Count Lymph % (Auto) 12.1 L [place] % (Auto) 9.5 H 8.9 H Lymph # 1.1 L 1.0 L [place] # Seg Neutrophils % 71.8 H 76.5 H Seg Neutrophils # APTT POC ABG pH POC ABG pCO2 POC ABG pO2 Sodium Potassium 3.4 L Chloride Carbon Dioxide Creatinine Glucose POC Glucose Lactic Acid Calcium C-Reactive Protein HDL Cholesterol 09/29/16 09/30/16 10/01/16 06:10 21:30 04:10 RBC 5.33 H Hgb 16.0 H Hct 47.8 H RDW 15.5 H Plt Count Lymph % (Auto) 13.2 L [place] % (Auto) 10.0 H Lymph # [place] # 1.0 H Seg Neutrophils % 75.1 H Seg Neutrophils # 7.8 H APTT POC ABG pH POC ABG pCO2 POC ABG pO2 Sodium Potassium 3.5 L Chloride Carbon Dioxide 20 L Creatinine 0.7 L Glucose 108 H POC Glucose 120 H Lactic Acid Calcium C-Reactive Protein HDL Cholesterol 10/01/16 10/01/16 10/01/16 04:10 15:44 15:44 RBC Hgb Hct RDW Plt Count Lymph % (Auto) [place] % (Auto) Lymph # [place] # Seg Neutrophils % Seg Neutrophils # APTT 23.5 L POC ABG pH POC ABG pCO2 POC ABG pO2 Sodium Potassium Chloride 97.3 L Carbon Dioxide Creatinine Glucose 109 H POC Glucose Lactic Acid Calcium C-Reactive Protein HDL Cholesterol 35 L 10/02/16 10:06 RBC Hgb Hct RDW Plt Count Lymph % (Auto) [place] % (Auto) Lymph # [place] # Seg Neutrophils % Seg Neutrophils # APTT POC ABG pH POC ABG pCO2 POC ABG pO2 Sodium Potassium 3.2 L Chloride 96.0 L Carbon Dioxide Creatinine Glucose 125 H POC Glucose Lactic Acid Calcium C-Reactive Protein HDL Cholesterol
[2016-10-02] MEDS: DUONEB 0.5 MG-3 MG/3 ML SOLN IH SCH ×2 (21:57→21:58)
[2016-10-03] MEDS: CARDIZEM PO SCH ×3 (00:17→13:16)
--- NOTE | 2016-10-03 01:01 | Treadmill Report ---
REASON FOR STUDY: Chest pain imaging and history of atrial fibrillation imaging. READING PHYSICIAN: Scooter Garcia M.D. IMAGING PROTOCOL: The patient received 10 mCi of Technetium 99m Tetrofosmin for resting image and 28 mCi of Technetium 99m Tetrofosmin for stress imaging. The imaging for the whole procedure was completed 30-90 minutes following the initial injection of Technetium 99m tetrofosmin. The SPECT imaging in the 180 degree arc was performed in the right anterior oblique projection. Computerized reconstruction of the images was performed for analysis. IMAGING RESULTS: Normal cavity size from stress to rest. Normal distribution of radionuclide in the anterior, inferior, septal, and apical regions. There was no gated SPECT done in view of the patient's atrial fibrillation. The patient infused Lexiscan, no EKG changes suggestive of ischemia. The patient maintained atrial fibrillation. SUMMARY: 1. Negative Lexiscan EKG. The patient was in AFib. 2. Normal rest and stress myocardial perfusion, no significant ischemia noted. No gating was done secondary to atrial fibrillation. JOB# [id number] VIKAS/SEBASTIAN
[2016-10-03] MEDS: DUONEB 0.5 MG-3 MG/3 ML SOLN IH SCH ×2 (03:49→15:58)
[2016-10-03] MEDS: CLEOCIN 600 MG/50 mL 600 MG/50 ML BAG IV SCH ×2 (04:20→13:16)
[2016-10-03 07:39] LABS: Anion Gap 18 mmol/L; BUN/Creatinine Ratio 18.88; Blood Urea Nitrogen 17 mg/dL (9-20); Calcium 8.7 mg/dL (8.4-10.2); Carbon Dioxide 28 mmol/L (22-30); Chloride 97.5 mmol/L (98-107); Glucose 96 mg/dL (75-100); Potassium 3.5 mmol/L (3.6-5.0); Sodium 140 mmol/L (137-145)
[2016-10-03 09:31] VITALS: BP 109/67
[2016-10-03] MEDS: BABY ASPIRIN PO SCH (10:22)
[2016-10-03] MEDS: VITAMIN B-1 PO SCH (10:22)
[2016-10-03] MEDS: THERAGRAN Tab PO SCH (10:22)
[2016-10-03] MEDS: FOLVITE PO SCH (10:22)
[2016-10-03] MEDS: PEPCID PO SCH (10:22)
[2016-10-03] MEDS: FLOMAX PO SCH (10:22)
[2016-10-03] MEDS: LOPRESSOR PO SCH (10:23)
[2016-10-03] MEDS: HCTZ PO SCH (10:23)
[2016-10-03] MEDS: LOVENOX SUB-Q SCH (10:23)
[2016-10-03] MEDS: SLOW-MAG PO SCH (10:23)
[2016-10-03] MEDS: KEPPRA PO SCH (10:24)
--- NOTE | 2016-10-03 10:26 | Discharge Summary ---
Providers - Providers Date of Admission: 09/24/16 11:28 Date of discharge: 10/03/16 Attending physician: ADRIAN LLAMAS 09/24/16 11:36 Consult to Physician [CONS] Routine Consulting Provider: MARCI FRANCO Reason For Exam: sz, encephalopathy Place consult to:: william Notified:: albaro Phone number called:: [phone] Was contact made?: Yes If yes, spoke with:: left msg on as machine Time called:: 12:15 09/25/16 21:38 Consult to Wound/ET Nurse [CONS] Routine Reason For Exam: wound eval (wound inside mouth, possibly tongue) 09/27/16 21:29 Speech Therapy Evaluation and Treat [CONS] Urgent Reason For Exam: tomorrow, evaluate, prior to taking p.o 09/28/16 11:22 Physical Therapy Evaluation and Treat [CONS] Routine Comment: Reason For Exam: deconditioning 09/28/16 11:23 Occupational Therapy Evaluate and Treat [CONS] Routine Comment: Reason For Exam: deconditioning 09/29/16 06:30 Consult to Wound/ET Nurse [CONS] Urgent Reason For Exam: wound eval 10/01/16 13:38 Occupational Therapy Evaluate and Treat [CONS] Routine Comment: Reason For Exam: Neuro deficits Physical Therapy Evaluation and Treat [CONS] Routine Comment: Reason For Exam: Neuro deficits 10/01/16 14:38 Consult to Physician [CONS] Routine Consulting Provider: JIMBO ALATORRE Reason For Exam: head ache/CT head 4 cm diminished area/?ischemia Place consult to:: regional facilities manager Notified:: [place] Phone number called:: [phone] Was contact made?: Yes Time called:: 14:49 10/02/16 10:24 Consult to Case Management [CONS] Routine Services Needed at Discharge: DME Equipment Notified:: Debbi Phone number called:: [phone] Was contact made?: Yes If yes, spoke with:: Debbi Time called:: 10:26 Additional Physician Instructions: CPAP for home use Primary care physician: STAFFING [facility] Hospitalization Condition: Fair Disposition: DC/[place] HOME UNDER HOME HEALTH Core Measure Documentation - Palliative Care Palliative Care/ Comfort Measures: Not Applicable - Core Measures Any of the following diagnoses?: none Exam - Constitutional Vitals: Temp Pulse Resp BP Pulse Ox 97.8 F 86 20 109/67 97 10/03/16 08:45 10/03/16 08:45 10/03/16 08:45 10/03/16 08:45 10/03/16 08:45 General appearance: Present: no acute distress, well-nourished - EENT Eyes: Present: PERRL, EOM intact - Neck Neck: Present: supple, normal ROM - Respiratory Respiratory effort: normal Respiratory: bilateral: diminished, negative: rales, rhonchi, wheezing - Cardiovascular Rhythm: regular Heart Sounds: Present: S1 & S2 - Extremities Extremities: no ischemia, pulses intact, pulses symmetrical, abnormal (left upper extremity swelling significantly improved) - Abdominal General gastrointestinal: Present: soft, non-tender, non-distended, normal bowel sounds - Integumentary Integumentary: Present: clear, warm - Musculoskeletal Musculoskeletal: strength equal bilaterally - Psychiatric Psychiatric: appropriate mood/affect, cooperative - Neurologic Neurologic: CNII-XII intact, moves all extremities Plan Activity: advance as tolerated Diet: other (cardiac diet) Additional Instructions: cPAP at night. one week rest from work from 10/04/16. check with PMD 3-4 days for further instructions Follow up with: PRIMARY CARE, [Primary Care Provider] - 3-5 Days SULMA KEBEDE MD [Staff Physician] - 7 Days LORRAINE SWIFT MD [Staff Physician] - 7 Days MARCI FRANCO MD [Staff Physician] - 7 Days Prescriptions: Clindamycin [Clindamycin CAP] 300 mg PO Q8H #30 cap Famotidine [Pepcid] 20 mg PO BID #60 tablet Folic Acid [Folvite] 1 mg PO DAILY #30 tablet levETIRAcetam [Keppra TAB] 750 mg PO BID #60 tablet Metoprolol [Lopressor TAB] 25 mg PO BID #60 tablet Thiamine [Vitamin B-1] 100 mg PO QDAY #30 tablet
--- NOTE | 2016-10-03 11:03 | Progress Note ---
Assessment and Plan Stable cardiac status. Follow up in office in 2 weeks. - Patient Problems (1) Cardiopulmonary arrest Current Visit: Yes Status: Acute (2) Atrial fibrillation with RVR Current Visit: Yes Status: Chronic (3) Hypertension Current Visit: Yes Status: Chronic Qualifiers: Hypertension type: essential hypertension Qualified Code(s): I10 - Essential (primary) hypertension (4) Sleep apnea Current Visit: Yes Status: Chronic Qualifiers: Sleep apnea type: S (5) History of subdural hematoma Current Visit: Yes Status: Resolved Subjective Date of service: 10/03/16 Principal diagnosis: cardiopulmonary PEA arrest; seizure d/o; AFib with RVR Interval history: No complaint. Objective Vital Signs Temp Pulse Pulse Pulse Pulse Pulse Pulse 10/03/16 08:45 97.8 F 10/03/16 06:17 10/03/16 05:42 80 10/03/16 04:22 10/03/16 04:00 98.7 F 73 10/03/16 00:30 85 10/03/16 00:17 10/02/16 22:28 10/02/16 21:59 10/02/16 20:50 99.8 F H 10/02/16 20:00 75 77 10/02/16 18:59 99 H 10/02/16 16:00 98.1 F 99 H 10/02/16 14:51 80 10/02/16 14:50 80 10/02/16 12:00 98.6 F 80 10/02/16 11:00 119 H - Physical Examination General: No Apparent Distress HEENT: Positive: EOMI, Normocephaly, Mucus Membranes Moist Neck: Positive: neck supple, trachea midline. Negative: JVD/HJR Cardiac: Positive: irregularly irregular, S1/S2 Lungs: Positive: clear to auscultation Neuro: Positive: Grossly Intact Abdomen: Positive: Soft, Active Bowel Sounds. Negative: Tender Skin: Positive: Clear. Negative: Rash Musculoskeletal: Normal Range of Motion Extremities: Present: upper extr. pulses, lower extr. pulses. Absent: edema - Labs and Meds Comprehensive Metabolic Panel 10/02/16 10/03/16 Range/Units 10:06 06:22 Sodium 138 140 (137-145) mmol/L Potassium 3.2 L 3.5 L (3.6-5.0) mmol/L Chloride 96.0 L 97.5 L (98-107) mmol/L Carbon Dioxide 26 28 (22-30) mmol/L BUN 16 17 (9-20) mg/dL Creatinine 0.8 0.9 (0.8-1.5) mg/dL Glucose 125 H 96 (75-100) mg/dL Calcium 8.9 8.7 (8.4-10.2) mg/dL - Imaging and Cardiology EKG: report reviewed, image reviewed Echo: report reviewed (09/24/2016: EF 45- 50%, mild LVH, RV slightly dilated, RA mild to moderately dilated, trace MR, mild TR, RVSP 35mmHg, abnormal LV diastolic function)
--- NOTE | 2016-10-08 07:04 | Vascular Lab Report ---
CAROTID DUPLEX STUDY: RIGHT PSVEDV CCA PROX: 8510 CCA DIST: 8710 ICA PROX: 7018 ICA MID: 6114 ICA DIST: 6414 ECA: 13648 VERT: 40 7 LEFT PSVEDV CCA PROX:08617 CCA DIST: 9319 ICA PROX: 7510 ICA MID: 7122 ICA DIST: 6320 ECA: 69 7 VERT: 46 14 REASON FOR EXAM: [place]. COMMENTS ON THE RIGHT: Doppler frequency analysis is consistent with 16 to 49 percent diameter reduction of the internal carotid artery. Minimal amount of plaque is seen. The common carotid artery is patent. The external carotid artery is patent. The vertebral artery has antegrade flow. COMMENTS ON THE LEFT: Doppler frequency analysis is consistent with 16 to 49 percent diameter reduction of the internal carotid artery. Minimal amount of plaque is seen. The common carotid artery is patent. The external carotid artery is patent. The vertebral artery has antegrade flow. IMPRESSION: Less than 50% diameter reduction in the internal carotid arteries bilaterally. Consider repeat carotid artery duplex in 12 months.
== END 2016-10-03 13:31 | disposition home health service (06) | DRG 871 ==
LOC: ED 08:27 → CC1 11:28 → 4A 09-28 14:27
PROVIDERS: ADMIT Hospitalist; ATTEND Internal Medicine
PROC: 5A1945Z Respiratory Ventilation, 24-96 Consecutive Hours (ICD-10-PCS; principal; 2016-09-24)
PROC: 0BH17EZ Insertion of Endotracheal Airway into Trachea, Via Natural or Artificial Opening (ICD-10-PCS; 2016-09-24)
PROC: 4A033R1 Measurement of Arterial Saturation, Peripheral, Percutaneous Approach (ICD-10-PCS; 2016-09-24)
PROC: 0DH67UZ Insertion of Feeding Device into Stomach, Via Natural or Artificial Opening (ICD-10-PCS; 2016-09-24)
DX: A41.9 Sepsis, unspecified organism (principal); J96.01 Acute respiratory failure with hypoxia; G92 Toxic encephalopathy; I46.9 Cardiac arrest, cause unspecified; K92.2 Gastrointestinal hemorrhage, unspecified; R04.2 Hemoptysis; Z68.41 Body mass index [BMI] 40.0-44.9, adult; I69.354 Hemiplegia and hemiparesis following cerebral infarction affecting left non-dominant side; E66.2 Morbid (severe) obesity with alveolar hypoventilation; G40.909 Epilepsy, unspecified, not intractable, without status epilepticus; I10 Essential (primary) hypertension; I48.2 Chronic atrial fibrillation; R13.12 Dysphagia, oropharyngeal phase; Z86.718 Personal history of other venous thrombosis and embolism; Z86.711 Personal history of pulmonary embolism; Z79.82 Long term (current) use of aspirin; Z79.899 Other long term (current) drug therapy
CPT/HCPCS: 36415; 36600; 70100; 70450; 70553; 71010; 71275; 74000; 78452; 80048; 80053; 80061; 80307; 80320; 81001; 82140; 82550; 82553; 82803; 82962; 83735; 84100; 84443; 84484; 85007; 85025; 85652; 85730; 86140; 86850; 86900; 86901; 87040; 87070; 87075; 87086; 87116; 87205; 93005; 93010; 93017; 93306; 93880; 94002; 94003; 94640; 94660; 94760; 95819; 96361; 96365; 96375; 96376; A9270-GY; A9502; A9577; G0480; J0171; J0330; J1265; J1650; J1953; J2060; J2250; J2543; J2785; J3370; J7030; Q9967